=== PATIENT | female | born 1955 | race African-American/Black ===

== ENCOUNTER 2020-11-28 06:22 | Outpatient (REF) | payer BC, SELFPAY ==
[2020-11-28 11:58] LABS: SARS COV2 IgG Negative (Negative)
== END 2020-11-28 06:23 | disposition home or self-care (01) ==
LOC: HO.HMGCLDS 06:22
PROVIDERS: PCP Internal Medicine; Visit Provider Internal Medicine
DX: Z00.00 Encounter for general adult medical examination without abnormal findings (principal); Z20.822 Contact with and (suspected) exposure to COVID-19
CPT/HCPCS: 36415; 86769

== ENCOUNTER 2021-03-23 00:05 | Emergency (ER) | payer BC, SELFPAY ==
--- NOTE | ~2021-03-23 | XR_ITS ---
EXAMINATION: XR FOOT, RIGHT CLINICAL INFORMATION: Hard bump on dorsal fifth tarsal COMPARISON: None TECHNIQUE: AP, lateral, and oblique views of the right foot. FINDINGS: Osseous alignment is anatomic. Joint spaces appear maintained. No acute fracture is seen. No significant focal soft tissue abnormality identified. XR/XR foot RT min 3V IMPRESSION: No acute findings identified.
[2021-03-23 00:55] VITALS: BP 139/80; PULSE 82; RESP 14; TEMP 37.5; O2SAT 95; BMI 37.1
--- NOTE | 2021-03-23 03:11 | PC.NURSE ---
THIS RN GREETED PATIENT IN HALLWAY WHO WAS VERY UPSET RN BEING IN HALLWAY SPACE (18 MESA) FOR ROOM ASSIGNMENT. THIS RN WHO WAS ALSO CHARGE EXPLAINED TO THE PATIENT THAT THE ROOMS WERE ASSIGNED BASED ON WHO NEEDED A ADMINISTRATION MANAGER FIRST. THIS PT DID NOT REQUIRE A ADMINISTRATION MANAGER. PT THEN ASKED FOR A BLANKET STATED I HAVE CHILLS, I HAD A TEMP OF 102.7 AT HOME PTS TEMP HERE WAS 99.5 SO THIS RN EXPLAINED TO PT ONE NON HEATED BLANKET COULD BE GIVEN FOR COMFORT BUT MULTIPLE BLANKETS WHICH PT WAS REQUESTING WAS CONTRAINDICATED TO PTS MEDICAL COMPLAINTS. 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
--- NOTE | 2021-03-23 03:48 | ED_ITS ---
HPI - General Adult General Chief complaint: General Medical Stated complaint: fever, left swollen ankle, sever headache Time Seen by Provider: 03/23/21 03:47 Source: patient Mode of arrival: ambulatory History of Present Illness HPI narrative: 65-year-old female who presents with concerns regarding a bump on the right dorsal aspect of her foot that is atraumatic and patient noted at the other night and states that she feels like her foot is numb. In addition, patient complaints a headache that comes up along the back of her neck into the base of her skull and endorses that she has abstained from caffeine and denies any speech/hearing/motor/sensory dysfunction. Patient denies any fever, chills, nausea, vomiting, diarrhea but states she has had some very mild left inguinal/left lower quadrant discomfort that is not been associated with any urinary pain/burning/frequency. Related Data Allergies Allergy/AdvReac Type Severity Reaction Status Date / Time diphenhydramine Allergy Unknown ANXIETY Verified 09/25/20 08:37 [From BENADRYL] metronidazole [From FLAGYL] Allergy Unknown ALTERED Verified 09/25/20 08:37 MENTAL, FAINT, NAUSEA, DIZZY penicillin V Allergy Unknown Nausea Verified 09/25/20 08:37 Penicillins [PENICILLINS] Allergy Unknown NAUSEA Verified 09/25/20 08:37 Sulfa (Sulfonamide Allergy Unknown unknown Verified 09/25/20 08:37 Antibiotics) sulfamethoxazole Allergy Unknown HIVES Verified 09/25/20 08:37 [From BACTRIM] trimethoprim [From BACTRIM] Allergy Unknown HIVES Verified 09/25/20 08:37 Review of Systems Review of Systems: Pertinent positives and negatives as stated in HPI 10 point review of systems is otherwise negative. [facility] Past Medical History Medical History (Updated 03/23/21 @ 05:59 by Chantel Persaud MD) Annual physical exam Anxiety Surgical History (Updated 09/26/20 @ 07:23 by Afua Gramajo CMA) H/O colonoscopy History of colposcopy No pertinent past surgical history Family History Family History (Updated 09/25/20 @ 08:38 by LEANDRA Srinivasan, MANAGER OF PRODUCT) Father No problems noted. Mother No problems noted. Social History Social History Advance Directives: No Advance Directives Information Provided: No Patient : No Physical Exam Vital Signs: Vital Signs: Last Vital Signs Temp 99.5 F 03/23/21 00:55 Pulse 88 03/23/21 05:56 Resp 18 03/23/21 05:56 BP 131/82 03/23/21 05:56 Pulse Ox 97 03/23/21 05:56 Body Mass Index 37.1 VITAL SIGNS: Reviewed. GENERAL: Well developed, well nourished, in no acute distress. HEAD: Normocephalic/atraumatic EYES: PERRLA, EOMI OROPHARYNX: no oral lesions noted, posterior pharynx clear NECK: Supple, no adenopathy LUNGS: Normal breath sounds. No adventitious sounds or accessory muscle use. SpO2<95> CARDIOVASCULAR: Regular rate and rhythm without noted murmurs, no JVD or lower extremity edema. ABDOMEN: Soft, non-tender, non-distended with bowel sounds. RIGHT FOOT: Small hard area noted on the dorsal aspect of the 5th tarsal, otherwise palpable/symmetric DP/PT, capillary refill less than 3 seconds NEUROLOGIC: Alert and oriented x 4. Strength and sensation to light touch were grossly intact x 4. Course Course Course Narrative: This is a 65-year-old female with history and clinical presentation most consistent with tension-like headache and unknown firm mass noted at the right foot dorsum without evidence of cellulitis or infection. Review of all investigations negative for acute findings, however patient unable to provide urine sample. On re-evaluation patient states that she has had complete resolution of her symptoms and all results were discussed with her bedside. She was discharged in stable condition. Medical Decision Making Lab Data Result diagrams: 03/23/21 04:08 03/23/21 04:08 Labs: Lab Results 03/23/21 03/23/21 Range/Units 04:08 04:08 WBC 7.2 (4.8-10.8) X10*3/uL RBC 4.19 L (4.20-5.50) X10*6/uL Hgb 13.3 (12.0-16.0) g/dl Hct 40.5 (37-47) % MCV 96.7 (80-98) fL MCH 31.7 (27.0-33.0) pg MCHC 32.8 (31.0-35.0) g/dl RDW 12.6 (11.0-16.0) % Plt Count 184 (160-400) X10*3/uL MPV 10.1 (9.4-12.3) fL Immature Gran % (Auto) 0.1 (0.0-0.4) % Neut % (Auto) 45.8 (45-73) % Lymph % (Auto) 44.0 H (20-40) % Stephens % (Auto) 9.3 (2-11) % Eos % (Auto) 0.4 (0-4) % Baso % (Auto) 0.4 (0-2) % Lymph # (Auto) 3.2 (1.2-4.9) X10*3/uL Stephens # (Auto) 0.7 (0.1-1.2) X10*3/uL Eos # (Auto) 0.0 (0.0-0.4) X10*3/uL Baso # (Auto) 0.0 (0.0-0.2) X10*3/uL Abs Immat Gran (auto) 0.01 (0.00-0.03) X10*3/uL Absolute Neuts (auto) 3.3 (2.0-8.3) X10*3/uL Absolute Nucleated RBC 0.000 (0.0-0.012) X10*3/uL Nucleated RBC % (auto) 0.0 (0.0-0.2) /100WBC Sodium 140 (135-145) mmol/L Potassium 3.7 (3.3-5.1) mmol/L Chloride 107 (96-108) mmol/L Carbon Dioxide 26 (22-29) mmol/L Anion Gap 11 L (12-20) BUN 11 (9-16) mg/dL Creatinine 0.90 (0.5-1.4) mg/dL Estim Creat Clear Calc 77.0 Estimated GFR > 60 Random Glucose 97 (60-115) mg/dL Calcium 9.0 (8.4-10.2) mg/dL Total Bilirubin 0.7 (0.0-1.0) mg/dL AST 24 (5-31) U/L ALT 17 (0-31) U/L Alkaline Phosphatase 73 (39-117) U/L Total Protein 7.7 (6.5-8.0) g/dL Albumin 4.0 (3.5-5.0) g/dL Discharge Plan Discharge Clinical Impression: Headache Patient Disposition: Home, Self-Care Instructions: Tension Headache (ED) Additional Instructions: Return to the ER for any acute worsening of symptoms. Referrals: Darlene Tobar MD [Primary Care Provider] - 2 days
[2021-03-23 04:12] LABS: MANUAL DIFF FLAG NO
[2021-03-23 04:14] LABS: Basophils Percent Auto 0.4 % (0-2); Eosinophils Percent Auto 0.4 % (0-4); Hematocrit 40.5 % (37-47); Hemoglobin 13.3 g/dl (12.0-16.0); Imm Gran Abs Auto 0.01 X10*3/uL (0.00-0.03); Imm Gran Pct Auto 0.1 % (0.0-0.4); Lymphocytes Absolute Auto 3.2 X10*3/uL (1.2-4.9); Mean Corpuscular HGB Conc 32.8 g/dl (31.0-35.0); Mean Corpuscular Hemoglobin 31.7 pg (27.0-33.0); Mean Corpuscular Volume 96.7 fL (80-98); Mean Platelet Volume 10.1 fL (9.4-12.3); Monocytes Absolute Auto 0.7 X10*3/uL (0.1-1.2); Monocytes Percent Auto 9.3 % (2-11); Neutrophils Absolute Auto 3.3 X10*3/uL (2.0-8.3); Neutrophils Percent Auto 45.8 % (45-73); Platelet Count 184 X10*3/uL (160-400); Red Blood Count 4.19 X10*6/uL (4.20-5.50); Red Cell Distribution Width 12.6 % (11.0-16.0); White Blood Count 7.2 X10*3/uL (4.8-10.8)
[2021-03-23] MEDS: Acetaminophen 325 MG TABLET 975 MG PO (04:22)
[2021-03-23] MEDS: Ibuprofen 400 MG TABLET PO (04:22)
[2021-03-23 04:41] LABS: Alanine Aminotransferase 17 U/L (0-31); Alkaline Phosphatase 73 U/L (39-117); Anion Gap 11 (12-20); Aspartate Amino Transferase 24 U/L (5-31); Bilirubin Total 0.7 mg/dL (0.0-1.0); Blood Urea Nitrogen 11 mg/dL (9-16); Carbon Dioxide 26 mmol/L (22-29); Chloride 107 mmol/L (96-108); Estimated Glomerular Filt Rate > 60; Glucose Random 97 mg/dL (60-115); Potassium 3.7 mmol/L (3.3-5.1); Sodium 140 mmol/L (135-145); Total Protein 7.7 g/dL (6.5-8.0)
--- NOTE | 2021-03-23 05:06 | PC.NURSE ---
Pt presented to the nurses' station and asked if she needed to be charcoaled because she took 325mg tylenol around 2200 last night and is concerned she has taken too much medication.
[2021-03-23 05:56] VITALS: BP 131/82; PULSE 88; RESP 18; O2SAT 97
== END 2021-03-23 06:46 | disposition home or self-care (01) ==
PROVIDERS: Emergency Provider Student in an Organized Health Care Education/Training Program; PCP Internal Medicine
DX: G44.209 Tension-type headache, unspecified, not intractable (principal); M79.671 Pain in right foot; M54.2 Cervicalgia
CPT/HCPCS: 36415; 73630; 80053; 85025; 99284

== ENCOUNTER 2021-04-02 06:44 | Outpatient (REF) | payer BC, SELFPAY ==
[2021-04-02 12:04] LABS: SARS COV2 IgG Negative (Negative)
== END 2021-04-02 06:45 | disposition home or self-care (01) ==
LOC: HO.HMGCLDS 06:44
PROVIDERS: PCP Internal Medicine; Visit Provider Internal Medicine
DX: Z20.822 Contact with and (suspected) exposure to COVID-19 (principal)
CPT/HCPCS: 36415; 86769

== ENCOUNTER 2021-05-01 07:43 | Outpatient (REF) | payer BC, SELFPAY ==
[2021-05-01 11:30] LABS: Glucose Urine UA NEG (NEG); Leukocyte Esterase Urine NEG (NEG); Nitrite Urine NEG (NEG); PH 6.5 (5.0-8.0); Specific Gravity - Urine <= 1.005 (1.005-1.025); Urine Blood NEG (NEG); Urine Ketones NEG (NEG); Urine Protein NEG (NEG-TRACE)
[2021-05-01 11:42] LABS: Appearance Urine CLEAR; Color Urine STRAW
== END 2021-05-01 07:44 | disposition home or self-care (01) ==
LOC: HO.HMGCLDS 07:43
PROVIDERS: PCP Internal Medicine; Visit Provider Internal Medicine
DX: R30.0 Dysuria (principal)
CPT/HCPCS: 81003

== ENCOUNTER 2021-10-03 07:00 | Outpatient (REF) | payer MEDICARE, SELFPAY ==
[2021-10-30 14:39] LABS: SARS COV2 IgG Negative (Negative)
== END 2021-10-03 07:01 | disposition home or self-care (01) ==
LOC: HO.HMGCLDS 07:00
PROVIDERS: PCP Internal Medicine; Visit Provider Internal Medicine
DX: Z20.822 Contact with and (suspected) exposure to COVID-19 (principal)
CPT/HCPCS: 36415; 86769

== ENCOUNTER 2021-12-12 06:42 | Outpatient (REF) | payer MEDICARE, SELFPAY ==
[2021-12-16 04:06] LABS: SARS COV2 IgG Positive (Negative)
== END 2021-12-12 06:43 | disposition home or self-care (01) ==
LOC: HO.HMGCLDS 06:42
PROVIDERS: Visit Provider Internal Medicine
DX: Z20.822 Contact with and (suspected) exposure to COVID-19 (principal)
CPT/HCPCS: 36415; 86769

== ENCOUNTER 2021-12-17 08:21 | Outpatient (REF) | payer MEDICARE, SELFPAY ==
[2021-12-17 09:09] LABS: COVID-19 Test Negative (Negative); IDNOW Serial# 16C4AD1C
== END 2021-12-17 08:22 | disposition home or self-care (01) ==
LOC: HO.LAB 08:21
PROVIDERS: Visit Provider Internal Medicine
DX: Z20.822 Contact with and (suspected) exposure to COVID-19 (principal)
CPT/HCPCS: 87635; C9803

== ENCOUNTER 2022-01-31 08:14 | Outpatient (REF) | payer MEDICARE, SELFPAY ==
[2022-01-31 08:44] LABS: COVID-19 Test Negative (Negative); IDNOW Serial# 16C4AD1C
== END 2022-01-31 08:15 | disposition home or self-care (01) ==
LOC: HO.LAB 08:14
PROVIDERS: Visit Provider Internal Medicine
DX: Z20.822 Contact with and (suspected) exposure to COVID-19 (principal)
CPT/HCPCS: 87635; C9803

== ENCOUNTER 2022-02-04 07:16 | Outpatient (REF) | payer MEDICARE, SELFPAY ==
[2022-02-07 08:30] LABS: SARS COV2 IgG Positive (Negative)
== END 2022-02-04 07:17 | disposition home or self-care (01) ==
LOC: HO.HMGCLDS 07:16
PROVIDERS: Visit Provider Internal Medicine
DX: Z20.822 Contact with and (suspected) exposure to COVID-19 (principal)
CPT/HCPCS: 36415; 86769

== ENCOUNTER 2022-03-01 10:34 | Outpatient (REF) | payer MEDICARE, SELFPAY ==
[2022-03-01 12:00] LABS: Vitamin D 25-OH Total 33.2 ng/mL (>30)
[2022-03-03 08:11] LABS: Folate 9.5 ng/mL (> or = 4.0); Vitamin B12 256 pg/mL (200-900)
== END 2022-03-01 10:35 | disposition home or self-care (01) ==
LOC: HO.HMGCLDS 10:34
PROVIDERS: Visit Provider Internal Medicine
DX: Z00.00 Encounter for general adult medical examination without abnormal findings (principal); E55.9 Vitamin D deficiency, unspecified
CPT/HCPCS: 36415; 82306; 82607; 82746

== ENCOUNTER 2022-07-09 07:15 | Outpatient (REF) | payer MEDICARE, SELFPAY ==
[2022-07-12 01:56] LABS: SARS-COV-2 IgG Spike, Semi-Qnt >150.00 index (<1.00)
== END 2022-07-09 07:16 | disposition home or self-care (01) ==
LOC: HO.HMGCLDS 07:15
PROVIDERS: PCP Internal Medicine; Visit Provider Internal Medicine
DX: Z20.822 Contact with and (suspected) exposure to COVID-19 (principal)
CPT/HCPCS: 36415; 86769

== ENCOUNTER 2022-11-01 16:06 | Outpatient (REF) | payer MEDICARE, SELFPAY ==
[2022-11-01 16:25] LABS: Appearance Urine Clear; Color Urine Yellow; Glucose Urine UA Negative (Negative); Leukocyte Esterase Urine Negative (Negative); Nitrite Urine Negative (Negative); Specific Gravity - Urine <= 1.005 (1.005-1.025); Urine Blood Negative (Negative); Urine Ketones Negative (Negative); Urine Protein Negative (Neg-Trace)
== END 2022-11-01 16:07 | disposition home or self-care (01) ==
LOC: HO.LNP 16:06
PROVIDERS: Visit Provider Physician Assistant Medical
DX: R30.0 Dysuria (principal)
CPT/HCPCS: 81003

== ENCOUNTER 2022-11-20 11:59 | Outpatient (REF) | payer MEDICARE, SELFPAY ==
[2022-11-21 09:16] LABS: BV Int Neg Control Negative (Negative); BV Int Pos Control Positive (Positive)
== END 2022-11-20 12:00 | disposition home or self-care (01) ==
LOC: HO.LNP 11:59
PROVIDERS: Visit Provider Internal Medicine
DX: R30.0 Dysuria (principal); N76.0 Acute vaginitis
CPT/HCPCS: 87086; 87480; 87510; 87660

== ENCOUNTER 2023-10-29 07:53 | Outpatient (AMB) | payer MEDICARE, SELFPAY ==
--- NOTE | 2023-10-29 08:06 | MHC.PC.OV ---
Vital Signs 10/29/23 08:08 Height 5 ft 6 in Weight 200 lb BMI 32.3 BP 128/70 Blood Pressure Location Lt brachial Position Sitting Pulse 68 Pulse Source Pulse Oximeter Pulse Oximetry (%) 98 Oxygen Delivery Method Room Air Intake Visit Reasons: Annual PE Allergies diphenhydramine [From BENADRYL] Allergy (Unknown, Verified 10/29/23 08:08) ANXIETY metronidazole [From FLAGYL] Allergy (Unknown, Verified 10/29/23 08:08) ALTERED MENTAL, FAINT, NAUSEA, DIZZY penicillin V Allergy (Unknown, Verified 10/29/23 08:08) Nausea Penicillins [PENICILLINS] Allergy (Unknown, Verified 10/29/23 08:08) NAUSEA Sulfa (Sulfonamide Antibiotics) Allergy (Unknown, Verified 10/29/23 08:08) unknown sulfamethoxazole [From BACTRIM] Allergy (Unknown, Verified 10/29/23 08:08) HIVES trimethoprim [From BACTRIM] Allergy (Unknown, Verified 10/29/23 08:08) HIVES Medication List - Last Reconciled 10/29/23 by Darlene Tobar MD clindamycin phosphate 2% 1 appful vaginal BEDTIME 7 days estradiol 0.01%(0.1mg/gram) 2 grams vaginal DAILY latanoprost 0.005% 1 drp ophthalmic (eye) BEDTIME levalbuterol tartrate 45 mcg/actuation inhalation Tobacco use date assessed: 10/29/23 Fall risk assessment: No Falls in past year Last assessed Fall Risk: 10/29/23 Dental Screening Dental Screen Date: 10/29/23 Did you have a dental visit in the last 12 months?: Yes Did you have a dental problem in the last 6 months where you did not have access to dental care?: No Was dental information given to patient?: Patient has dentist HPI Annual PE HPI Details Pt presents for PE. 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 [facility] Medical History (Updated 10/29/23 @ 15:27 by Darlene Tobar MD) Vitamin D deficiency Hyperglycemia Microscopic hematuria Chronic cough Acute bronchitis Dysuria Annual physical exam Anxiety Surgical History (Updated 10/29/23 @ 08:40 by Darlene Tobar MD) History of colposcopy H/O colonoscopy No pertinent past surgical history Family History Father No problems noted. Mother No problems noted. Social History Housing: House Patient Tobacco Use Status: Never used Tobacco e-Cigarette/Vaping Use: Never Used Current occupational status: retired Cognitive needs: No Hearing needs: No Vision needs: Yes Questionnaire PHQ-9 Over the last 2 weeks, how often have you been bothered by any of the following problems? 1. Little interest or pleasure in doing things: not at all 2. Feeling down, depressed, or hopeless: not at all 3. Trouble falling or staying asleep, or sleeping too much: not at all 4. Feeling tired or having little energy: not at all 5. Poor appetite or overeating: not at all 6. Feeling bad about yourself - or that you are a failure or have let yourself or your family down: not at all 7. Trouble concentrating on things, such as reading the newspaper or watching television: not at all 8. Moving or speaking so slowly that other people could have noticed. Or the opposite - being so fidgety or restless that you have been moving around a lot more than usual: not at all 9. Thoughts that you would be better off or of hurting yourself in some way: not at all Total score: 0 Depression Screening Interpretation: Negative Depression Screening Done: Yes Source: Developed by Drs. Pankaj Chinchilla, Ingrid Harper, Lupillo Mabry and colleagues, with an educational reshma from [employer]. Thrive Questionnaire Date Thrive assessed: 10/29/23 I am a: Patient What is your living situation today?: I have a steady place to live Within the past 12 months, did the food you bought not last and you didn't have the money to get more?: Never true Within the past 12 months, did you worry whether your food would run out before you got money to buy more?: Never true Do you have trouble paying for medicines?: No Do you have trouble getting transportation to medical appointments?: No Do you have trouble paying your heating and electricity bill?: No Do you have trouble taking care of your child, family member or friend?: No Do you have trouble with day-to-day activities such as bathing, preparing meals, shopping, managing finances, etc.?: No Are you currently unemployed and looking for a job?: No Are you interested in more education?: No Please select the resources that you would like help with: None Currently or been in a relationship where the following occur: no concerns reported AUDIT C Alcohol Use Questionnaire (AUDIT-C) 1. How often do you have a drink containing alcohol?: Never 3. How often do you have six or more drinks on one occasion?: Never Total Score: 0 BECKY-7 AMB Questionnaire BECKY-7 Date BECKY - 7 assessed: 10/29/23 Feeling nervous, anxious, or on edge: 0 = Not at all Not being able to stop or control worryin = Not at all Worrying too much about different things: 0 = Not at all Trouble relaxin = Not at all Being so restless that it is hard to sit still: 0 = Not at all Becoming easily annoyed or irritable: 1 = Several days Feeling afraid as if something awful might happen: 0 = Not at all Total BECKY-7 score (0-4 normal; 5-9 mild; 10-14 moderate; 15-21 severe): 1 Source: Developed by Drs. Pankaj Chinchilla, Ingrid Harper, Lupillo Mabry and colleagues, with an educational reshma from [employer]. Review of Systems Const All systems reviewed & are unremarkable except as noted in HPI and below Reports no additional complaints Eyes Reports no additional complaints Card Reports no additional complaints Resp Reports no additional complaints GI Reports no additional complaints Physical exam (Primary Care) Vital Signs: Last Vital Signs Pulse 68 10/29/23 08:08 BP 128/70 10/29/23 08:08 Pulse Ox 98 10/29/23 08:08 Oxygen Delivery Method Room Air 10/29/23 08:08 BMI result Body Mass Index 32.3 Tobacco/Smoking Status: Tobacco use Status Tobacco use date assessed 10/29/23 10/29/23 08:11 Patient Tobacco Use Status Never used Tobacco 10/29/23 08:11 e-Cigarette/Vaping Use Never Used 10/29/23 08:11 PHQ-9: PHQ-9 Score PHQ-9: Total score 0 10/29/23 08:27 Depression Screening Interpretation: Negative Thrive Assessment: Date of Thrive Assessment Date Thrive assessed 10/29/23 10/29/23 08:13 Currently or been in a relationship where the following occur: no concerns reported Const General: no acute distress HENMT Head: Yes normal to inspection Ears: hearing grossly normal bilaterally General nose exam: Normal external nose present Face and sinus: Yes normal facial exam Mouth: Normal oral and palatal mucosa present Throat: Yes posterior oropharynx normal Eyes General: appearance normal, both eyes and all related structures Neck Neck: Yes no lymphadenopathy and Yes supple Resp Effort & Inspection: normal respiratory effort Auscultation: clear to auscultation bilaterally Cardio Rhythm: regular rhythm Heart sounds: S1 normal heart sound present and S2 normal heart sound present GI Inspection: Yes normal to inspection Palpation (GI): Soft to palpation Percussion: Yes normal to percussion Auscultation: normal bowel sounds Assessment and Plan Assessment & Plan (1) Vitamin D deficiency: Code(s): E55.9 - Vitamin D deficiency, unspecified Plan: Check vitamin-D level (2) Hyperglycemia: Code(s): R73.9 - Hyperglycemia, unspecified Plan: ADA diet increase exercise weight loss discussed with the patient. she will return for fasting blood work including A1C (3) Hyperlipidemia: Code(s): E78.5 - Hyperlipidemia, unspecified Plan: LOW-CHOLESTEROL DIET INCREASE EXERCISE WEIGHT LOSS DISCUSSED WITH THE PATIENT (4) Mitral regurgitation: Comment: mild MR on Echo 06/09 [facility] [place], repeat in 2 yrs Code(s): I34.0 - Nonrheumatic mitral (valve) insufficiency Plan: Patient will need repeat echocardiogram in May (5) Annual physical exam: Code(s): Z00.00 - Encounter for general adult medical examination without abnormal findings Plan: Well-balanced diet regular physical activity weight loss discussed with the patient. She is up-to-date with the Pap smear, colonoscopy and mammogram (6) Asthma-COPD overlap syndrome: Comment: f/u with [facility] [place] on Flovent, improved PFT 04/10 Code(s): J44.89 - Other specified chronic obstructive pulmonary disease Plan: Continue Flovent Orders: Orders Comprehensive [place]. Panel Fast Today E55.9 - Vitamin D deficiency, unspecified, I34.0 - Nonrheumatic mitral (valve) insufficiency, R73.9 - Hyperglycemia, unspecified Protein Electrophoresis, Serum Today E55.9 - Vitamin D deficiency, unspecified, I34.0 - Nonrheumatic mitral (valve) insufficiency, R73.9 - Hyperglycemia, unspecified Hemoglobin A1c Today R73.9 - Hyperglycemia, unspecified Vitamin D 25-OH Total Today E55.9 - Vitamin D deficiency, unspecified, I34.0 - Nonrheumatic mitral (valve) insufficiency, R73.9 - Hyperglycemia, unspecified Complete Blood Count Auto Diff Today E55.9 - Vitamin D deficiency, unspecified, I34.0 - Nonrheumatic mitral (valve) insufficiency, R73.9 - Hyperglycemia, unspecified Lipid Panel Today E55.9 - Vitamin D deficiency, unspecified, I34.0 - Nonrheumatic mitral (valve) insufficiency, R73.9 - Hyperglycemia, unspecified Referrals [facility] Specialist Nutrition Referral E55.9 - Vitamin D deficiency, unspecified, E78.5 - Hyperlipidemia, unspecified, R73.9 - Hyperglycemia, unspecified Medications: New fluticasone propionate 110 mcg/actuation (Flovent HFA) 1 puff inhalation BID 12 grams 0RF Coding Level of Care Code Est Pt Prev Care >65y(07344) Diagnoses Vitamin D deficiency E55.9 Hyperglycemia R73.9 Hyperlipidemia E78.5 Mitral regurgitation I34.0 Annual physical exam Z00.00 Asthma-COPD overlap syndrome J44.89
[2023-10-29 08:08] VITALS: BP 128/70; PULSE 68; O2SAT 98; BMI 32.3
== END 2023-10-29 09:37 | disposition home or self-care (01) ==
PROVIDERS: PCP Internal Medicine; Visit Provider Internal Medicine
DX: E55.9 Vitamin D deficiency, unspecified (principal); R73.9 Hyperglycemia, unspecified; E78.5 Hyperlipidemia, unspecified; I34.0 Nonrheumatic mitral (valve) insufficiency; Z00.00 Encounter for general adult medical examination without abnormal findings; J44.89 Other specified chronic obstructive pulmonary disease
CPT/HCPCS: 99397

== ENCOUNTER 2024-05-28 09:10 | Outpatient (AMB) | payer MEDICARE, SELFPAY ==
[2024-05-28 09:12] VITALS: BP 140/78; PULSE 66; O2SAT 97; BMI 32.3
--- NOTE | 2024-05-28 09:12 | MHC.OFFWIV ---
Intake Vital Signs 05/28/24 09:12 Height 5 ft 6 in Weight 200 lb BMI 32.3 BP 140/78 H Blood Pressure Location Lt brachial Position Sitting Pulse 66 Pulse Source Pulse Oximeter Pulse Oximetry (%) 97 Oxygen Delivery Method Room Air Intake Visit Reasons: EP RT hand/wrist injury Intake Note: pt is here for right hand and wrist injury Patient Tobacco Use Status: Never used Tobacco Allergies diphenhydramine [From BENADRYL] Allergy (Unknown, Verified 05/28/24 09:12) ANXIETY metronidazole [From FLAGYL] Allergy (Unknown, Verified 05/28/24 09:12) ALTERED MENTAL, FAINT, NAUSEA, DIZZY penicillin V Allergy (Unknown, Verified 05/28/24 09:12) Nausea Penicillins [PENICILLINS] Allergy (Unknown, Verified 05/28/24 09:12) NAUSEA Sulfa (Sulfonamide Antibiotics) Allergy (Unknown, Verified 05/28/24 09:12) unknown sulfamethoxazole [From BACTRIM] Allergy (Unknown, Verified 05/28/24 09:12) HIVES trimethoprim [From BACTRIM] Allergy (Unknown, Verified 05/28/24 09:12) HIVES Do you need a note to return to daycare/school/sports/work: No HPI EP RT hand/wrist injury HPI Details Patient is a 68-year-old female comes to the walk-in clinic complaining of right hand and wrist pain after repetitive use while gardening. She reports that symptoms occurred soon after, and now has a severe pain especially to the base of the right thumb into the thumb side of the wrist, particularly with any movement or trying to use the hand or wrist. She denies acute trauma such as fall, or sudden obvious pain. She denies fever or chills, other joint involvement, weakness numbness or tingling to the extremity. [facility] Medical History Vitamin D deficiency Hyperglycemia Microscopic hematuria Chronic cough Acute bronchitis Dysuria Annual physical exam Anxiety Surgical History History of colposcopy H/O colonoscopy No pertinent past surgical history Family History Father No problems noted. Mother No problems noted. Social History Housing: House Patient Tobacco Use Status: Never used Tobacco e-Cigarette/Vaping Use: Never Used Current occupational status: retired Cognitive needs: No Hearing needs: No Vision needs: Yes Review of Systems Const All systems reviewed & are unremarkable except as noted in HPI and below Physical Exam Vital Signs: Last Vital Signs Pulse 66 05/28/24 09:12 BP 140/78 H 05/28/24 09:12 Pulse Ox 97 05/28/24 09:12 Oxygen Delivery Method Room Air 05/28/24 09:12 BMI result Body Mass Index 32.3 Extrem Other: Patient has tenderness at the base of 1st right CMC joint, with decreased range of motion with both intrinsics and flexion and extension at the joint. She has decreased ability for opposition to the other fingers due to pain also. There is no erythema edema or warmth noted. No bony deformity. She has a positive Celestino's test, and positive tenderness to palpation at the radial aspect of the wrist. No scaphoid tenderness. 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 I think this is possible she has de Quervain tenosynovitis, although it might just be a flare-up of the osteoarthritis at the base of the thumb, which is apparent on plain film x-ray. There was no acute trauma noted on my wet read. She had a positive Celestino's test however, as well as grind to the 1st CMC joint. I placed her in a thumb spica splint which alleviated her symptoms. I also wrote her for a course of ibuprofen, which she will take with caution due to her age. We discussed elevating the hand, icing, and resting until symptoms improve. She can wear the splint as much as able for the next week or so, and then should wean out of the splint. If she has persistent symptoms, she should follow up with PCP or ortho to consider further imaging to rule out occult scaphoid fracture, however as acute trauma did not occur, this is unlikely. Orders: Orders XR wrist RT min 3V 05/28/24 S69.91XA - Unspecified injury of right wrist, hand and finger(s), initial encounter Medications: New ibuprofen 600 mg PO Q8H PRN 40 tabs 0RF pain Coding Level of Care Code Est Pt Level 4 (13715) Diagnoses Sprain of metacarpophalangeal (MCP) joint of right thumb, initial encounter S63.641A Encounter type: initial encounter Sprain of finger site: metacarpophalangeal joint
== END 2024-05-28 10:28 | disposition home or self-care (01) ==
PROVIDERS: PCP Internal Medicine; Visit Provider Physician Assistant Medical
DX: S63.641A Sprain of metacarpophalangeal joint of right thumb, initial encounter (principal)
CPT/HCPCS: 99051; 99214

== ENCOUNTER 2024-05-28 09:37 | Outpatient (REF) | payer MEDICARE, SELFPAY ==
--- NOTE | ~2024-05-28 | XR_ITS ---
EXAMINATION: XR WRIST, RIGHT CLINICAL INFORMATION: Injury COMPARISON: None available. TECHNIQUE: Four views of the right wrist. FINDINGS: No acute visible fracture or dislocation. Mild degenerative arthropathy of the first carpometacarpal joint. Joint space alignment otherwise maintained. Soft tissues are unremarkable. XR/XR wrist RT min 3V IMPRESSION: 1. No acute visible fracture or dislocation. 2. Mild degenerative arthropathy of the first carpometacarpal joint. 3. If high clinical concern for scaphoid fracture consider further evaluation with cross-sectional imaging.
== END 2024-05-28 09:38 | disposition home or self-care (01) ==
LOC: HO.HMGCX 09:37
PROVIDERS: PCP Internal Medicine; Visit Provider Physician Assistant Medical
DX: S69.91XA Unspecified injury of right wrist, hand and finger(s), initial encounter (principal)
CPT/HCPCS: 73110

== ENCOUNTER 2025-07-19 06:20 | Emergency (ER) | payer MEDICARE, SELFPAY ==
--- OUTSIDE RECORDS SUMMARY | 2025-07-14 13:00 | XMS_ITS | Encounter Summary ---
Author Organization [facility] Address [address] [place] [address] Phone Care Team Providers Care Manager Money Name Role Phone Poncho Thompson MD Primary Care Provider Encounter Details Date Type Department Care Team ([facility] st Contact Info) Description 07/14/2025 1:00 PM EDT Nurse Only [facility] Pulmonary, Allergy and Critical Care Medicine [address] [place] [address] Baldomero Swanson MD [address] [place] [address] 2nd [place] [address] [email or web address] Allergic rhinitis, unspecified seasonality, unspecified trigger (Primary Dx) Social History Tobacco Use Types Packs/Day Years Used Date Smoking Tobacco: Former Cigarettes 0.5 20 0 10/19/1980 - 2000 Smokeless Tobacco: Never Alcohol Use Standard Drinks/Week Comments No 0 (1 standard drink = 0.6 oz pur e alcohol) Education Answer Date Recorded Are you interested in more education? Not on tita e 02/16/2023 Are you concerned about learning? Not on file 02/16/2023 No 02/16/2023 No 02/16/2023 Digital Access Answer Date Recorded No 03/11/2023 No 03/11/2023 Reliable internet access at home? Not on file 03/11/2023 Device with a working camera? Not on file Comments No Sex and Gender Information Value Date Recorded Sex Assigned at Female 12/20/2020 10:04 AM EST Legal Sex Female 5:25 PM EST Gender Identity Female 12/20/2020 10:04 AM EST Sexual Orientation Straight 12/20/2020 10 :04 AM EST documented as of this encounter Progress Notes * Jeanine Murillo LPN - 07/14/2025 1:00 PM EDT Patient new to practice. 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 Dosing: Build-up phase. Week 25 Patient reports never taking an antihistamine prior to allergy injections. No new or worsening allergy symptoms. No changes in medications. Skin clean, dry, and intact. Sites cleansed with alcohol prep. Office-supplied serums subcutaneously administered as follows: Vial A - Dust Mite Mix, 1:1 concentration, 0.15 ml JACQUELINE Vial B - Trees/Grass/Weeds, 1:1 concentration, 0.15 ml RLA Vial C - Cat/Dog, 1:1 concentration, 0.15 ml GRETTA Vials 03/29/2026 No immediate reaction to injections. Benadryl cream applied to both sites. Pt agreed to waiting in the lobby for 15 min post injection. documented in this encounter Plan of Treatment Upcoming Encounters Date Type Department Care Team ([facility] st Contact Info) Description 07/21/2025 1:00 PM EDT Nurse Only [facility] Pulmonary, Allergy and Critical Care Medicine [address] [place] [address] Emmanuel Calixto MD [address] [place] [address] 07/28/2025 1:30 PM EDT Nurse Only [facility] Pulmonary, Allergy and Critical Care Medicine [address] [place] [address] Emmanuel Calixto MD [address] [place] [address] 08/04/2025 1:00 PM EDT Nurse Only [facility] Pul[facility], Allergy and Critical Care Medicine 10 [place] [address] Emmanuel Calixto MD [address] [place] [address] [email or web address] 08/18/2025 1:00 PM EDT Nurse Only [facility] Pulmonary, Allergy and Critical Care Medicine 10 [place], [place] [phone] Emmanuel Calixto MD [address] [place] [address] [email or web address] 09/01/2025 1:00 PM EST Nurse Only [facility] Pul[facility], Allergy and Critical Care Medicine [address] [place] [address] Emmanuel Calixto MD [address] [place] [address] [email or web address] 10/04/2025 9:30 AM EST Office Visit [facility] Neuromuscular Service [address]th [place] [address] Edgar Bowers MD, PhD [address] [place] [address] [email or web address] 10/24/2025 8:00 AM EST Office Visit [facility] [place] [address] [place] [address] Edgar Kaur MD [address] [place] [address] [email or web address] 01/11/2026 9:30 AM EDT Office Visit [facility] Primary [facility] Associates [address] [facility], [address] [place], [place] [phone] Poncho Thompson MD [address] [place] [address], [address] [address] [email or web address] documented as of this encounter Visit Diagnoses Diagnosis Allergic rhinitis, unspecified seasonality, unspecified trigger- Primary documented in this encounter Additional Health Concerns Assessment Noted Time PHQ-2 Depression Total Score: 0 05/04/20 24 11:49 AM EDT documented as of this encounter Care Teams Manager Money Relationship Specialty Start Date End Date Poncho Thompson MD [address] [place] [address], [facility] [address] [place] [address] [email or web address] PCP - General Internal Medicine 02/10/24 documented as of this encounter Additional Source Comments The information contained in this document represents components of the legal health record. It is not the complete legal health record.[facility]
--- NOTE | ~2025-07-19 | XR_ITS ---
CLINICAL HISTORY: cough sob --- Additional Notes or Special Instructions: bloodwork @ [address] [place] [address] Chest radiograph AP view Comparison: None Findings: Cardiomediastinal silhouette normal. No consolidations. No pleural effusion. No pneumothorax. No acute fracture. Soft tissue is unremarkable. Impression: No acute cardiopulmonary finding. This document has been electronically signed by: Mansi Sunshine MD on 07/19/2025 08:17:56
[2025-07-19 06:22] VITALS: BP 150/70; PULSE 100; RESP 18; TEMP 37.8; O2SAT 96; BMI 32.3
--- OUTSIDE RECORDS SUMMARY | 2025-07-19 06:56 | XMS_ITS | Encounter Summary ---
Author Organization [facility] Address [address] [place] [address] Phone Care Team Providers Care Offbearer Sewer Pipe Name Role Phone Darlene Tobar MD Primary Care Provider [phone] Poncho Thompson MD Primary Care Provider Encounter Details Date Type Department Care Team (Late Contact Info) Description 03/31/2022 Transcribe Orders [facility] [address] [place] [address] Unknown, Unknown, Social History Tobacco Use Types Packs/Day Years Used Date Smoking Tobacco: Former Cigarettes 1 10 0 05/14/1985 - 05/14/1995 Smokeless Tobacco: Never Alcohol Use Standard Drinks/Week Comments No 0 (1 standard drink = 0.6 oz pur e alcohol) Comments No Sex and Gender Information Value Date Recorded Sex Assigned at Female 12/20/2020 10:04 AM EST Legal Sex Female 5:25 PM EST Gender Identity Female 12/20/2020 10:04 AM EST Sexual Orientation Straight 12/20/2020 10 :04 AM EST documented as of this encounter Plan of Treatment Upcoming Encounters Date Type Department Care Team (Late Contact Info) Description 07/21/2025 1:00 PM EDT Nurse Only [facility] Pulmonary, Allergy and Critical Care Medicine 10 [place], [place] [phone] Emmanuel Calixto MD [address] [phone] [email or web address] 07/28/2025 1:30 PM EDT Nurse Only [facility] Pulmonary, Allergy and Critical Care Medicine [address] [place] [address] Emmanuel Calixto MD [address] [place] [address] 08/04/2025 1:00 PM EDT Nurse Only [facility] Pul[facility], Allergy and Critical Care Medicine [address] [place] [address] Emmanuel Calixto MD [address] [place] [address] 08/18/2025 1:00 PM EDT Nurse Only [facility], Allergy and Critical Care Medicine [address] [place] [address] Emmanuel Calixto MD [address] [place] [address] 09/01/2025 1:00 PM EST Nurse Only [facility], Allergy and Critical [facility] Medicine [address] [place] [address] Emmanuel Calixto MD [address] [place] [address] 10/04/2025 9:30 AM EST Office Visit [facility] Neuromuscular Service [address] [facility], 8th [place] [address] Edgar Bowers MD, PhD [address] [address] 10/24/2025 8:00 AM EST Office Visit [facility] [place] [address] [place] [address] Edgar Kaur MD [address] [place] [address] [email or web address] 01/11/2026 9:30 AM EDT Office Visit [facility] Primary Care Associates [address] [facility], [address] [place] [address] Poncho Thompson MD [address] [facility], [address] [place] [address] [email or web address] documented as of this encounter Visit Diagnoses Not on filedocumented in this encounter Additional Health Concerns Assessment Noted Time PHQ-2 Depression Total Score: 0 04/27/20 20 10:35 AM EDT documented as of this encounter Care Teams Offbearer Sewer Pipe Relationship Specialty Start Date End Date Darlene Tobar MD [address] [facility] [place] [address] PCP - General Internal Medicine 01/01/22 02/09/24 Poncho Thompson MD [address] [facility], [address] [place] [address] [email or web address] PCP - General Internal Medicine 02/10/24 documented as of this encounter Additional Source Comments The information contained in this document represents components of the legal health record. It is not the complete legal health record.[facility]
--- OUTSIDE RECORDS SUMMARY | 2025-07-19 06:56 | XMS_ITS | Clinical Summary ---
Author Organization [facility] Address [address] [place] [address] Care Team Providers Care Applied Marine Physics Professor Name Role Phone Unavailable Primary Care Provider Unavailabl e Allergies Active Allergy Reactions Criticality Noted Date Comments Ibuprofen Nausea Only Low 01/17/2011 Latex Rash,Shortness Of Breath High 07/15/2011 Penicillins Nausea Only Low 01/17/2011 Sulfamethoxazole-Trimethopri m Hives High 01/17/2011 Medications Medication Sig Dispensed Refills Start Date End Date Status montelukast (SINGULAIR) 10 MG tablet 0 08/18/2022 Active pantoprazole (PROTONIX) 40 MG tablet Take 1 tablet (40 mg total) by mouth daily. 0 06/17/2022 Active Social History Tobacco Use Types Packs/Day Years Used Date Smoking Tobacco: Never Assessed Sex and Gender Information Value Date Recorded Sex Assigned at Not on file Gender Identity Not on file Sexual Orientation Not on file Job Start Date Occupation Industry Not on file Not on file Not on file Last Filed Vital Signs Vital Sign Reading Time Taken Comments Blood Pressure - - Pulse - - Temperature - - Respiratory Rate - - Oxygen Saturation - - Inhaled Oxygen Concentration - - Weight 90.3 kg (199 lb) 11/06/2022 3:56 PM EST Height 167.6 cm (5' 6 ) 11/06/2022 3:56 PM EST Body Mass Index 32.12 11/06/2022 3:56 PM EST Plan of Treatment Health Maintenance Due Date Last Done Comments Hepatitis C Screening 1956 Depression Screening 1968 Preventative Health Evaluation 1974 Colon Cancer Screening (Colonoscopy) 2001 Breast Cancer Screening (Mammogram) 2006 Shingrix-Zoster Vaccine (1 o f 2) 2006 Fall Risk Assessment 2021 Osteoporosis Screening (DEXA Scan) 2021 Pneumococcal Vaccine (1 of 1 - PCV) 2021 BMI Counseling 11/06/2023 11/06/2022 COVID-19 Vaccine (3 - 2024-2 6 season) 2025 06/05/2021, 05/15/2021 Influenza Vaccine (#1) 2025 2022 DTap / Tdap / Td (2 - Td or Tdap) 03/18/2027 03/18/2017 RSV Adult > 60+ Yrs or (1 - 1-dose 75+ series) 2031 Hepatitis B Vaccines Aged Out No long er eligible based on patient's age to complete this topic RSV Ped < 20 months Aged Out No longe r eligible based on patient's age to complete this topic
--- OUTSIDE RECORDS SUMMARY | 2025-07-19 06:56 | XMS_ITS | Encounter Summary ---
Author Organization [facility] Address [address] [place] [address] Phone Care Team Providers Care Cosmetology Professor Name Role Phone Paula Ritchie MD Primary Care Provider [phone] Darlene Tobar MD Primary Care Provider [phone] Jojo Christensen MD Primary Care Provider [phone] Darlene Tobar MD Primary Care Provider [phone] Darlene Tobar MD Primary Care Provider [phone] Poncho Thompson MD Primary Care Provider Encounter Details Date Type Department Care Team (Late st Contact Info) Description 09/12/[address] [facility] OBGYN Gynecology Resident [address] [place] [address] Emani Leggett MA [email or web address] Social History Tobacco Use Types Packs/Day Years Used Date Smoking Tobacco: Former Cigarettes 1 10 0 05/14/1985 - 05/14/1995 Alcohol Use Standard Drinks/Week Comments No 0 [...] Encounters Date Type Department Care Team (Late st Contact Info) Description 07/21/2025 1:00 PM EDT Nurse Only [facility] Pulmonary, Allergy and Critical Care Medicine [address] [place] [address] Emmanuel Calixto MD [address] [place] [address] [email or web address] 07/28/2025 1:30 PM EDT Nurse Only [facility] Pul[facility], Allergy and Critical Care Medicine [address] [place] [address] Emmanuel Calixto MD [address] [place] [address] [email or web address] 08/04/2025 1:00 PM EDT Nurse Only [facility] Pul[facility], Allergy and Critical [facility] Medicine [address] [place] [address] Emmanuel Calixto MD [address] [place] [address] 08/18/2025 1:00 PM EDT Nurse Only [facility], Allergy and Critical Care Medicine [address] [place] [address] Emmanuel Calixto MD [address] [place] [address] [email or web address] 09/01/2025 1:00 PM EST Nurse Only [facility] Allergy [facility] Critical [facility] Medicine [address] [place] [address] Emmanuel Calixto MD [address] [place] [address] [email or web address] 10/04/2025 9:30 AM EST Office Visit [facility] Neuromuscular Service [address] [facility], 8th [place] [address] Edgar Bowers MD, PhD [address] [address] [email or web address] 10/24/2025 8:00 AM EST Office Visit [facility] [place] [address] [place] [address] Edgar Kaur MD [address] [place] [address] [email or web address] 01/11/2026 9:30 AM EDT Office Visit [facility] Primary Care Associates [address] [facility], [address] [place] [address] Poncho Thompson MD [address] [facility], [address] [place] [address] [email or web address] documented as of this encounter Visit Diagnoses Not on filedocumented in this encounter Additional Health Concerns Assessment Noted Time PHQ-2 Depression Total Score: 0 09/19/20 16 9:07 AM EST documented as of this encounter Care Teams Cosmetology Professor Relationship Specialty Start Date End Date Paula Ritchie MD [address] [place] [address] PCP - General 06/13/16 09/26/20 Darlene Tobar MD [address] [place] [address] [place] [address] PCP - General Internal Medicine 09/27/20 12/15/20 Jojo Christensen MD [address] [facility], [address] [place] [address] [email or web address] PCP - General Internal Medicine 12/16/2012/19 Darlene Tobar MD [facility] [place] [address] PCP - General Internal Medicine 12/20/20 12/31/21 Darlene Tobar MD [facility] [place] [address] PCP - General Internal Medicine 01/01/22 02/09/24 Poncho Thompson MD [address] [place] [address], [place] [address] [email or web address] PCP - General Internal Medicine 02/10/24 documented as of this encounter Additional Source Comments The information contained in this document represents components of the legal health record. It is not the complete legal health record.[facility]
--- OUTSIDE RECORDS SUMMARY | 2025-07-19 06:56 | XMS_ITS | Encounter Summary ---
Author Organization [facility] Address [address] [place] [phone] Care Team Providers Care Greenhouse Manager Name Role Phone Obtain, Unable To Primary Care Provider Unavaila ble Encounter Details Date Type Department Care Team (Late st Contact Info) Description 07/01/2018 Scanned Document Sleep Medicine Program at [address] [place] [address] Ayanna Pantoja MD [address] [place] [phone] Social History Tobacco Use Types Packs/Day Years Used Date Smoking Tobacco: Never Assessed Comments Unknown Sex and Gender Information Value Date Recorded Sex Assigned at Not on file Legal Sex Female 7:49 AM EST Gender Identity Female 01/08/2023 9:06 AM EDT Sexual Orientation Not on file documented as of this encounter Plan of Treatment Not on file documented as of this encounter Visit Diagnoses Not on filedocumented in this encounter Care Teams Greenhouse Manager Relationship Specialty Start Date End Date Obtain, Unable To PCP - General 08/02/18 documented as of this encounter
--- OUTSIDE RECORDS SUMMARY | 2025-07-19 06:56 | XMS_ITS | Encounter Summary ---
Author Organization [facility] Address [address] [place] [address] Phone Care Team Providers Care Db2 Developer Name Role Phone Darlene Tobar MD Primary Care Provider [phone] Poncho Thompson MD Primary Care Provider Encounter Details Date Type Department Care Team (Late st Contact Info) Description 05/13/2022 Transcribe Orders [facility] [address] [place] [address] Renée West MD [address] [place] [address] [email or web address] Social History Tobacco Use Types Packs/Day Years [...] [facility], All[facility] Critical [facility] [address] [place] [address] Emmanuel Calixto MD [address] [place] [address] 07/28/2025 1:30 PM EDT Nurse Only [facility] Pul[facility], Allergy and Critical Care Medicine [address] [place] [address] Emmanuel Calixto MD [address] [place] [address] 08/04/2025 1:00 PM EDT Nurse Only [facility], Allergy and Critical [facility] Medicine [address] [place] [address] Emmanuel Calixto MD [address] [place] [address] 08/18/2025 1:00 PM EDT Nurse Only [facility] All[facility] Critical [facility] Medicine [address] [place] [address] Emmanuel Calixto MD [address] [place] [address] 09/01/2025 1:00 PM EST Nurse Only [facility], Allergy and Critical [facility] Medicine [address] [place] [address] Emmanuel Calixto MD [address] [place] [address] 10/04/2025 9:30 AM EST Office [facility] Neuromuscular Service [address] [facility], 8th [place] [address] Edgar Bowers MD, PhD [address] [place] [address] [email or web address] 10/24/2025 8:00 AM EST Office Visit [facility] [place] [address] [place] [address] Edgar Kaur MD [address] [place] [address] [email or web address] 01/11/2026 9:30 AM EDT Office Visit [facility] Primary Care Associates [address] [facility], [address] [place] [address] Poncho Thompson MD [address] [facility], [address] [place] [address] [email or web address] documented as of this encounter Visit Diagnoses Not on filedocumented in this encounter Additional Health Concerns Assessment Noted Time PHQ-2 Depression Total Score: 0 04/27/20 20 10:35 AM EDT documented as of this encounter Care Teams Db2 Developer Relationship Specialty Start Date End Date Darlene Tobar MD [address] [facility] [place] [address] PCP - General Internal Medicine 01/01/22 02/09/24 Poncho Thompson MD [address] [facility], [address] [place] [address] [email or web address] PCP - General Internal Medicine 02/10/24 documented as of this encounter Additional Source Comments The information contained in this document represents components of the legal health record. It is not the complete legal health record.[facility]
--- OUTSIDE RECORDS SUMMARY | 2025-07-19 06:56 | XMS_ITS | Encounter Summary ---
Author Organization [facility] Address [address] [place] [address] Phone Care Team Providers Care Straight Knife Machine Cutter Name Role Phone Darlene Tobar MD Primary Care Provider [phone] Poncho Thompson MD Primary Care Provider Encounter Details Date Type Department Care Team (Late st Contact Info) Description 10/21/[address], Christopher [address] [facility], 2nd Floor, [address] [place] [address] Social History Tobacco Use Types Packs/Day Years [...] Upcoming Encounters Date Type Department Care Team ([facility] st Contact Info) Description 07/21/2025 1:00 PM EDT Nurse Only [facility] Pulmonary, Allergy and Critical Care Medicine 10 [place] [address] Emmanuel Calixto MD [address] [place] [address] [email or web address] 07/28/2025 1:30 PM EDT Nurse Only [facility] Pul[facility], Allergy and Critical Care Medicine [address] [place] [address] Emmanuel Calixto MD [address] [place] [address] [email or web address] 08/04/2025 1:00 PM EDT Nurse Only [facility] All[facility] Critical [facility] Medicine [address] [place] [address] Emmanuel Calixto MD [address] [place] [address] [email or web address] 08/18/2025 1:00 PM EDT Nurse Only [facility] Critical [facility] [address] [place] [address] Emmanuel Calixto MD [address] [place] [address] [email or web address] 09/01/2025 1:00 PM EST Nurse Only [facility] Allergy [facility] Critical [facility] Medicine [address] [place] [address] Emmanuel Calixto MD [address] [place] [address] [email or web address] 10/04/2025 9:30 AM EST Office Visit [facility] Neuromuscular Service [address]th [place] [address] Edgar Bowers MD, PhD [address] [facility] [place] [address] [email or web address] 10/24/2025 8:00 AM EST Office Visit [facility] [place] [address] [place] [address] Edgar Kaur MD [address] [place] [address] [email or web address] 01/11/2026 9:30 AM EDT Office Visit [facility] Primary Care Associates [address] [place] [address], [address] [address] Poncho Thompson MD [address] [place] [address], [address] [address] [email or web address] documented as of this encounter Visit Diagnoses Not on filedocumented in this encounter Additional Health Concerns Assessment Noted Time PHQ-2 Depression Total Score: 0 05/04/20 24 11:49 AM EDT documented as of this encounter Care Teams Straight Knife Machine Cutter Relationship Specialty Start Date End Date Darlene Tobar MD [address] [place] [address] PCP - General Internal Medicine 01/01/22 02/09/24 Poncho Thompson MD [address] [place] [address], [address] [place] [address] [email or web address] PCP - General Internal Medicine 02/10/24 documented as of this encounter Additional Source Comments The information contained in this document represents components of the legal health record. It is not the complete legal health record.[facility]
--- OUTSIDE RECORDS SUMMARY | 2025-07-19 06:56 | XMS_ITS | Encounter Summary ---
Author Organization [facility] Address [address] [place] [address] Phone Care Team Providers Care Community Health Planning Director Name Role Phone Paula Ritchie MD Primary Care Provider [phone] Darlene Tobar MD Primary Care Provider [phone] Jojo Christensen MD Primary Care Provider + [phone] Darlene Tobar MD Primary Care Provider Darlene Tobar MD Primary Care Provider [phone] Poncho Thompson MD Primary Care Provider Encounter Details Date Type Department Care Team (Late st Contact Info) Description 05/10/2020 Transcribe Orders [facility] [address] Ariel [email or web address] Social History Tobacco Use Types Packs/Day Years [...] Pulmonary, Allergy and Critical Care Medicine [address] [place] [address] mEmanuel Calixto MD [address] [place] [address] 07/28/2025 1:30 PM EDT Nurse Only [facility] Pulmonary, Allergy and Critical Care Medicine [address] [place] [address] Emmanuel Calixto MD [address] [place] [address] 08/04/2025 1:00 PM EDT Nurse Only [facility] Pulmonary, Allergy and Critical Care Medicine [address] [place] [address] Emmanuel Calixto MD [address] [place] [address] [email or web address] 08/18/2025 1:00 PM EDT Nurse Only [facility] Pulmonary, Allergy and Critical Care Medicine [address] [place] [address] Emmanuel Calixto MD [address] [place] [address] 09/01/2025 1:00 PM EST Nurse Only [facility] Pulmonary, Allergy and Critical Care Medicine [address] [place] [address] Emmanuel Calixto MD [address] [place] [address] 10/04/2025 9:30 AM EST Office Visit [facility] Neuromuscular Service [address] [facility], 8th [place] [address] Edgar Bowers MD, PhD [address] [address] [email or web address] 10/24/2025 8:00 AM EST Office Visit [facility] [place] [address] [place] [address] Edgar Kaur MD [address] [place] [address] [email or web address] 01/11/2026 9:30 AM EDT Office Visit [facility] [address] [place] [address], [facility] [address] [place] [address] Poncho Thompson MD [address] [place] [address], [address] [address] [email or web address] documented as of this encounter Results * Mammogram Outside (No Interpretation) (05/15/2020 9:52 AM EDT) Narrative [facility] - 05/15/2020 9:52 AM EDT This study is for PACS storage only and not for interpretation. us Paula Ritchie MD IMG OUTSIDE IMAGING W/OUT INTERPRETATION Final Result Performing Organization Address City/[facility]/ZIP Co de Phone Number [email or web address] * Mammogram Outside (No Interpretation) (05/15/2020 9:52 AM EDT) Narrative [facility] - 05/15/2020 9:52 AM EDT This study is for PACS storage only and not for interpretation. Paula Ritchie MD IMG OUTSIDE IMAGING W/OUT INTERPRETATION Final Result Performing Organization Address City/[facility]/ZIP Co de Phone Number [email or web address] * Mammogram Outside (No Interpretation) (05/15/2020 9:52 AM EDT) Narrative [facility] - 05/15/2020 9:52 AM EDT This study is for PACS storage only and not for interpretation. us Paula Ritchie MD IMG OUTSIDE IMAGING W/OUT INTERPRETATION Final Result Performing Organization Address City/[facility] Co de Phone Number [email or web address] * Mammogram Outside (No Interpretation) (05/15/2020 9:52 AM EDT) Narrative [facility] - 05/15/2020 9:52 AM EDT This study is for PACS storage only and not for interpretation. us Paula Ritchie MD IMG OUTSIDE IMAGING W/OUT INTERPRETATION Final Result Performing Organization Address [facility] Co de Phone Number [email or web address] documented in this encounter Visit Diagnoses Not on filedocumented in this encounter Additional Health Concerns Assessment Noted Time PHQ-2 Depression Total Score: 0 04/27/20 20 10:35 AM EDT documented as of this encounter Care Teams Community Health Planning Director Relationship Specialty Start Date End Date Paula Ritchie MD [address] [place] [address] PCP - General 06/13/16 09/26/20 Darlene Tobar MD [address] [place] [address] PCP - General Internal Medicine 09/27/20 12/15/20 Jojo Christensen MD [address] [facility], [address] [place] [address] [email or web address] PCP - General Internal Medicine 12/16/2012/19 Darlene Tobra MD [facility] [place] [address] PCP - General Internal Medicine 12/20/20 12/31/21 Darlene Tobar MD [facility] [place] [address] PCP - General Internal Medicine 01/01/22 02/09/24 Poncho Thompson MD [address] [place] [address], [address] [place] [address] [email or web address] PCP - General Internal Medicine 02/10/24 documented as of this encounter Additional Source Comments The information contained in this document represents components of the legal health record. It is not the complete legal health record.[facility]
--- OUTSIDE RECORDS SUMMARY | 2025-07-19 06:56 | XMS_ITS | Encounter Summary ---
Author Organization [facility] Address [address] [place] [id number] Care Team Providers Care Feedlot Manager Name Role Phone Obtain, Unable To Primary Care Provider Unavaila ble Reason for Referral * Consultation (Routine) - Closed Specialty Diagnoses / Procedures Referred By Contheri t Referred To Contact Neurology Diagnoses Polyneuropathy Darlene Tobar MD [address] [facility] [place] [address] Phone: tel: fax: Neuromuscular Medicine at [address] [address] Phone: tel: fax: Referral ID Status Reason Start Date Expiration Date V isits Requested Visits Authorized [id number] Closed Specialty Services Required 06/30/2022 06/30/2023 1 1 Encounter Details Date Type Department Care Team (Latest Contact Info) Description 06/30/2022 Transcribed Orders Neuromuscular Medicine at [address] [address] Darlene Tobar MD [address] [facility] [place] [address] Polyneuropathy (Primary Dx) Social History Tobacco Use Types Packs/Day Years Used Date Smoking Tobacco: Never Assessed Comments Unknown Sex and Gender Information Value Date Recorded Sex Assigned at Not on file Legal Sex Female 7:49 AM EST Gender Identity Female 01/08/2023 9:06 AM EDT Sexual Orientation Not on file documented as of this encounter Plan of Treatment Scheduled Referrals Name Type Priority Associated Diagnoses Order Schedule Ambulatory referral to Neurology Outpatient Referral Routine Polyneuropathy Ordered: 06/30/2022 documented as of this encounter Visit Diagnoses Diagnosis Polyneuropathy- Primary Unspecified hereditary and idiopathic peripheral neuropathy documented in this encounter Care Teams Feedlot Manager Relationship Specialty Start Date End Date Obtain, Unable To PCP - General 08/02/18 documented as of this encounter
--- OUTSIDE RECORDS SUMMARY | 2025-07-19 06:56 | XMS_ITS | Encounter Summary ---
Author Organization [facility] Address [address] [place] [address] Phone Care Team Providers Care Skilled Trades Teacher Name Role Phone Poncho Thompson MD Primary Care Provider Reason for Visit * Reason Comments Med Change Request Encounter Details Date Type Department Care Team (Late st Contact Info) Description 07/03/2025 Refill [facility] [address] [facility] 2nd [address], [address] [place] [address] Cem Mo MD [address] [facility] [address] [place] [address] [email or web address] Med Change Request Social History Tobacco Use Types Packs/Day Years [...] Upcoming Encounters Date Type Department Care Team ([facility] st Contact Info) Description 07/21/2025 1:00 PM EDT Nurse Only [facility] Pulmonary, Allergy and Critical Care Medicine [address] [place] [address] Emmanuel Calixto MD [address] [place] [address] [email or web address] 07/28/2025 1:30 PM EDT Nurse Only [facility] Pulmonary, Allergy and Critical Care Medicine [address] [place] [address] Emmanuel Calixto MD [address] [place] [address] [email or web address] 08/04/2025 1:00 PM EDT Nurse Only [facility], Allergy [facility] Critical [facility] [address] [place] [address] Emmanuel Calixto MD [address] [place] [address] [email or web address] 08/18/2025 1:00 PM EDT Nurse Only [facility], All[facility] Critical [facility] [address] [place] [address] Emmanuel Calixto MD [address] [place] [address] [email or web address] 09/01/2025 1:00 PM EST Nurse Only [facility], Allergy [facility] Critical [facility] Medicine [address] [place] [address] Emmanuel Calixto MD [address] [place] [address] [email or web address] 10/04/2025 9:30 AM EST Office Visit [facility] Service [address] 8[address] [place] [address] Edgar Bowers MD, PhD [address] [facility] [place] [address] [email or web address] 10/24/2025 8:00 AM EST Office Visit [facility] [address] [place] [address] Edgar Kaur MD [address] [place] [address] [email or web address] 01/11/2026 9:30 AM EDT Office Visit [facility] [address] [place] [address] Poncho Thompson MD [address] [place] [address] [email or web address] documented as of this encounter Visit Diagnoses Not on filedocumented in this encounter Additional Health Concerns Assessment Noted Time PHQ-2 Depression Total Score: 0 05/04/20 24 11:49 AM EDT documented as of this encounter Care Teams Skilled Trades Teacher Relationship Specialty Start Date End Date Poncho Thompson MD [address] [place] [address], [address] [address] [email or web address] PCP - General Internal Medicine 02/10/24 documented as of this encounter Additional Source Comments The information contained in this document represents components of the legal health record. It is not the complete legal health record.[facility]
--- OUTSIDE RECORDS SUMMARY | 2025-07-19 06:56 | XMS_ITS | Patient Health Record ---
Author Organization [facility] Address [address] [facility] [address] [place] [address] Care Team Providers Care Geriatric Social Worker Name Role Phone Darlene Tobar Primary Care Provider Unavailabl e Allergies Allergen (clinical drug ingredient) Drug/Non Drug Allergy documented on EMR Reaction Allergy Type Onset Date Status sulfamethoxazole / trimethoprim Bactrim Unknown Drug Allergy Active diphenhydramine Benadryl Unknown Drug Allergy A ctive metronidazole Flagyl Unknown Drug Allergy Act dell Substance with penicillin structure and antibacterial mechanism of action (substance) Penicillins Unknown Drug Allergy Active Reason For Referral No Information Medications Medication SIG (Take, Route, Fr equency, Duration) Notes Start Date End Date Status Ciclopirox 8 % 1 application Hand Wood Sander ally to toenails Once a day; Duration: 365 days A ctive Problems Problem Type SNOMED Code ICD Code Onset Dates Problem Status W/U Status Risk Notes Problem Localized, primary osteoarthritis of the ankle and/or foot (538038765) 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
--- OUTSIDE RECORDS SUMMARY | 2025-07-19 06:56 | XMS_ITS | Encounter Summary ---
Author Organization [facility] Address [address] [facility] [address] [place] [address] Phone Care Team Providers Care Prepress Manager Name Role Phone Darlene Tobar MD Primary Care Provider [phone] Poncho Thompson MD Primary Care Provider Encounter Details Date Type Department Care Team (Late Contact Info) Description 01/28/[address], Located Within [facility] [place] [address] [facility] [place], [place] [phone] Social History Tobacco Use Types Packs/Day Years [...] Pulmonary, Allergy and Critical Care Medicine 10 [place], [place] [phone] Emmanuel Calixto MD [address] [address] 07/28/2025 1:30 PM EDT Nurse Only [facility] Pulmonary, Allergy and Critical Care Medicine [address] [place] [address] Emmanuel Calixto MD [address] [place] [address] 08/04/2025 1:00 PM EDT Nurse Only [facility] Pulmonary, Allergy and Critical Care Medicine [address] [place] [address] Emmanuel Calixto MD [address] [place] [address] 08/18/2025 1:00 PM EDT Nurse Only [facility] Pulmonary, Allergy and Critical Care Medicine [address] [place] [address] Emmanuel Calixto MD [address] [place] [address] 09/01/2025 1:00 PM EST Nurse Only [facility] Pulmonary, Allergy and Critical Care Medicine [address] [place] [address] Emmanuel Calixto MD [address] [place] [address] 10/04/2025 9:30 AM EST Office Visit [facility] Neuromuscular Service [address] [facility], 8th [place] [address] Edgar Bowers MD, PhD [address] [place] [address] 10/24/2025 8:00 AM EST Office Visit [facility] [address] [place] [address] Edgar Kaur MD [address] [place] [address] [email or web address] 01/11/2026 9:30 AM EDT Office Visit [facility] Primary [facility] [address] [facility] [place] [address] Poncho Thompson MD [address] [place] [address] [email or web address] documented as of this encounter Visit Diagnoses Not on filedocumented in this encounter Additional Health Concerns Assessment Noted Time PHQ-2 Depression Total Score: 0 04/27/20 20 10:35 AM EDT documented as of this encounter Care Teams Prepress Manager Relationship Specialty Start Date End Date Darlene Tobar MD [address] [facility] [place] [address] PCP - General Internal Medicine 01/01/22 02/09/24 Poncho Thompson MD [address] [facility], [address] [place] [address] [email or web address] PCP - General Internal Medicine 02/10/24 documented as of this encounter Additional Source Comments The information contained in this document represents components of the legal health record. It is not the complete legal health record.[facility]
--- OUTSIDE RECORDS SUMMARY | 2025-07-19 06:56 | XMS_ITS | Encounter Summary ---
Author Organization [facility] Address [address] [place] [address] Phone Care Team Providers Care Oyster Grader Name Role Phone Darlene Tobar MD Primary Care Provider Poncho Thompson MD Primary Care Provider Encounter Details Date Type Department Care Team (Late st Contact Info) Description 07/29/2022 Ancillary Orders [facility] Bone Density, Oscar [address] [place] [address] Darlene Tobar MD [address] [place] [address] [place] [address] Asymptomatic menopausal state Social History Tobacco Use Types Packs/Day Years [...] Pulmonary, Allergy and Critical Care Medicine [address] [place], [place] [phone] Emmanuel Calixto MD [address] [place] [address] 07/28/2025 1:30 PM EDT Nurse Only [facility] Pulmonary, Allergy and Critical Care Medicine [address] [place] [address] Emmanuel Calixto MD [address] [place] [address] 08/04/2025 1:00 PM EDT Nurse Only [facility] Pulmonary, Allergy and Critical Care Medicine [address] [place] [address] Emmanuel Calixto MD [address] [place] [address] 08/18/2025 1:00 PM EDT Nurse Only [facility] Pulmonary, Allergy and Critical Care Medicine [address] [place] [address] Emmanuel Calixto MD [address] [place] [address] 09/01/2025 1:00 PM EST Nurse Only [facility] Pulmonary, Allergy and Critical Care Medicine [address] [place] [address] Emmanuel Calixto MD [address] [place] [address] 10/04/2025 9:30 AM EST Office Visit [facility] Neuromuscular Service [address] [facility], 8th [place] [address] Edgar Bowers MD, PhD [address] [address] 10/24/2025 8:00 AM EST Office Visit [facility] [place] [address] [place] [address] Edgar Kaur MD [address] [place] [address] [email or web address] 01/11/2026 9:30 AM EDT Office Visit [facility] [address] [place] [address] Poncho Thompson MD [address] [facility], [address] [place], [place] [id number] [email or web address] documented as of this encounter Results * BD DXA AXIAL (SPINE) WITH HIP (08/02/2022 8:56 AM EDT) Anatomical Region Laterality Modality Bone Density Bone Density 08/02/2022 8:50 AM EDT Impressions 08/04/2022 3:28 PM EDT Interpretation: Osteopenia. Narrative 08/04/2022 3:28 PM EDT Referred By: DARLENE TOBAR Scanner: [employer] with serial# of [id number] located at [address] [place] [address] Bone Density Scan (DXA) 08/02/22 Details of prior DXA scans are available by clicking View Image BMD T- Z- Skeletal Site gm/cm2 score score BMD Change Since Prior Scan ------ ----- ----- PA Spine (L1-L4) 1.005 -1.30 0.70 N/A Total Hip (Left) 0.960 -0.50 0.50 N/A Femoral Neck (Left) 0.776 -1.20 0.10 N/A ------ ----- ----- * Denotes significant change when >= 0.022 g/cm2 for the spine, 0.027 g/cm2 for the total hip, 0.029 g/cm2 for the femoral neck. Interpretation: Osteopenia. Technical Quality: Imaging of all sites was of adequate quality. FRAX: Based on FRAX(r) 3.6 ([place] Black female), this patient's likelihood of hip fracture is 0.2% and major osteoporotic fracture is 3.1% over the next 10 years. The patient reported no risks of fracture. Additional Information: -World Health Organization criteria classify adults based on lowest T-score at PA spine, hip or forearm: Normal (T-score >= -1.0), Osteopenia (T-score between -1 and -2.5), or Osteoporosis (T-score <= -2.5). T-scores are compared to peak bone density of a gender and ethnicity matched reference population. -For premenopausal women and men under the age of 50, Z-scores (comparison to age, gender, and ethnicity matched reference population) are used: Above expected range for age (Z-score >= 2.0), Within expected range of age (Z-score 1.9 to -1.9), or Below expected range for age (Z-score <= -2.0). -The National Osteoporosis Foundation recommends that treatment be considered in men aged more than 50 years and in postmenopausal women with ANY of the following: Prior hip or vertebral fractures; T-score of <= -2.5 at the PA spine or hip; or 10 year fracture probability by FRAX of >= 3% for the hip or >= 20% for major osteoporotic fracture. -The FRAX algorithm (https://www.robert.ac.uk/FRAX/tool.aspx) is designed to predict 10-year fracture risk in treatment-naive adults between the ages of 40 and 90. It is not intended to be used in those receiving pharmacologic osteoporosis treatment. -Including race/ethnicity in the generation of T- or Z-scores or in the FRAX calculation is complicated, with there being reasons for and against doing such. We and others are actively reviewing the best approach to ensure that we can give patients the best information on their risk of fracture. -Click on View Image to see subsequent pages with images and prior bone density results. Reviewed By: Saúl Tirado MD on 08/04/2022 15:28:02 Procedure Note Saúl Tirado MD - 08/04/2022 Referred By: DARLENE TOBAR Scanner: [employer] with serial# of [id number] located at [address] [place] [address] Bone Density Scan (DXA) 08/02/22 Details of prior DXA scans are available by clicking View Image BMD T- Z- Skeletal Site gm/cm2 score score BMD Change Since Prior Scan ------ ----- PA Spine (L1-L4) 1.005 -1.30 0.70 N/A Total Hip (Left) 0.960 -0.50 0.50 N/A Femoral Neck (Left) 0.776 -1.20 0.10 N/A ------ ----- * Denotes significant change when >= 0.022 g/cm2 for the spine, 0.027g/cm2 for the total hip, 0.029 g/cm2 for the femoral neck. Interpretation: Osteopenia. Technical Quality: Imaging of all sites was of adequate quality. FRAX: Based on FRAX(r) 3.6 ([place] Black female), this patient's likelihoodof hip fracture is 0.2% and major osteoporotic fracture is 3.1% over the next 10 years. The patient reported no risks of fracture. Additional Information: -World Health Organization criteria classify adults based on lowestT-score at PA spine, hip or forearm: Normal (T-score >= -1.0), Osteopenia (T-score between -1 and -2.5), or Osteoporosis (T-score <= -2.5). T-scores are compared to peak bone density of a gender and ethnicity matched reference population. -For premenopausal women and men under the age of 50, Z-scores (comparison to age, gender, and ethnicity matched reference population) are used:Above expected range for age (Z-score >= 2.0), Within expected range of age (Z-score 1.9 to -1.9), or Below expected range for age (Z-score <= -2.0). -The National Osteoporosis Foundation recommends that treatment be considered in men aged more than 50 years and in postmenopausal women with ANY of the following: Prior hip or vertebral fractures; T-score of <= -2.5 at the PA spine or hip; or 10 year fracture probability by FRAX of >= 3%for the hip or >= 20% for major osteoporotic fracture. -The FRAX algorithm (https://www.robert.ac.uk/FRAX/tool.aspx) isdesigned to predict 10-year fracture risk in treatment-naive adults between theages of 40 and 90. It is not intended to be used in those receivingpharmacologic osteoporosis treatment. -Including race/ethnicity in the generation of T- or Z-scores or in theFRAX calculation is complicated, with there being reasons for and against doing such. We and others are actively reviewing the best approach to ensurethat we can give patients the best information on their risk of fracture. -Click on View Image to see subsequent pages with images and prior bone density results. Reviewed By: Saúl Tirado MD on 08/04/2022 15:28:02 IMPRESSION: Interpretation: Osteopenia. us Darlene Tobar MD IMG BD BONE DENSITY DEXA Jenn l Result documented in this encounter Visit Diagnoses Diagnosis Asymptomatic menopausal state Asymptomatic menopausal state documented in this encounter Additional Health Concerns Assessment Noted Time PHQ-2 Depression Total Score: 0 04/27/20 20 10:35 AM EDT documented as of this encounter Care Teams Oyster Grader Relationship Specialty Start Date End Date Darlene Tobar MD [facility] [place] [address] PCP - General Internal Medicine 01/01/22 02/09/24 Poncho Thompson MD [address] [place] [address], [address] [place] [address] [email or web address] PCP - General Internal Medicine 02/10/24 documented as of this encounter Additional Source Comments The information contained in this document represents components of the legal health record. It is not the complete legal health record.[facility]
--- OUTSIDE RECORDS SUMMARY | 2025-07-19 06:56 | XMS_ITS | Encounter Summary ---
Author Organization [facility] Address [address] [place] [address] Phone Care Team Providers Care Court Collections Officer Name Role Phone Darlene Tobar MD Primary Care Provider [phone] Ponhco Thompson MD Primary Care Provider Encounter Details Date Type Department Care Team (Late st Contact Info) Description 06/18/2023 Telephone [facility] Comprehensive Ophthalmology [address] [address] Beatrice Tolbert MD [address] [place] [address] [email or web address] [email or web address] Social History Tobacco Use Types Packs/Day Years [...] Upcoming Encounters Date Type Department Care Team ([facility] st Contact Info) Description 07/21/2025 1:00 PM EDT Nurse Only [facility] Pulmonary, Allergy and Critical Care Medicine [address] [place] [address] Emmanuel Calixto MD [address] [place] [address] 07/28/2025 1:30 PM EDT Nurse Only [facility] Pulmonary, Allergy and Critical Care Medicine [address] [place] [address] Emmanuel Calixto MD [address] [place] [address] [email or web address] 08/04/2025 1:00 PM EDT Nurse Only [facility] Pulmonary, Allergy and Critical Care Medicine [address] [place] [address] Emmanuel Calixto MD [address] [place] [address] 08/18/2025 1:00 PM EDT Nurse Only [facility] Pulmonary, Allergy and Critical Care Medicine [address] [place] [address] Emmanuel Calixto MD [address] [place] [address] [email or web address] 09/01/2025 1:00 PM EST Nurse Only [facility] Pulmonary, Allergy and Critical Care Medicine [address] [place] [address] Emmanuel Calixto MD [address] [place] [address] [email or web address] 10/04/2025 9:30 AM EST Office Visit [facility] Neuromuscular Service [address] 8th [place] [address] Edgar Bowers MD, PhD 55 [facility] [place] [address] [email or web address] 10/24/2025 8:00 AM EST Office Visit [facility] [place] [address] [place] [address] Edgar Kaur MD [address] [place] [address] [email or web address] 01/11/2026 9:30 AM EDT Office Visit [facility] Primary Care Associates [address] [place] [address], [address] [address] Poncho Thompson MD [address] [place] [address], [address] [address] [email or web address] documented as of this encounter Visit Diagnoses Not on filedocumented in this encounter Additional Health Concerns Assessment Noted Time PHQ-2 Depression Total Score: 0 04/27/20 20 10:35 AM EDT documented as of this encounter Care Teams Court Collections Officer Relationship Specialty Start Date End Date Darlene Tobar MD [address] [facility] [place] [address] PCP - General Internal Medicine 01/01/22 02/09/24 Poncho Thompson MD [address] [place] [address], [address] [place] [address] [email or web address] PCP - General Internal Medicine 02/10/24 documented as of this encounter Additional Source Comments The information contained in this document represents components of the legal health record. It is not the complete legal health record.[facility]
--- OUTSIDE RECORDS SUMMARY | 2025-07-19 06:56 | XMS_ITS | Encounter Summary ---
Author Organization [facility] Address [address] [place] [address] Phone Care Team Providers Care Finger Lift Operator Name Role Phone Darlene Tobar MD Primary Care Provider [phone] Poncho Thompson MD Primary Care Provider Encounter Details Date Type Department Care Team (Late Contact Info) Description 01/28/2022 Procedure Pass [facility] [address] [place] [address] Social History Tobacco Use Types Packs/Day Years [...] Pulmonary, Allergy and Critical Care Medicine [address] [place] [address] Emmanuel Calixto MD [address] [facility] 2nd [place] [address] 07/28/2025 1:30 PM EDT Nurse Only [facility] Pulmonary, Allergy and Critical Care Medicine [address] [place] [address] Emmanuel Calixto MD [address] [place] [address] 08/04/2025 1:00 PM EDT Nurse Only [facility] Pulmonary, Allergy and Critical Care Medicine [address] [place] [address] Emmaunel Calixto MD [address] [place] [address] 08/18/2025 1:00 PM EDT Nurse Only [facility] Pulmonary, Allergy and Critical Care Medicine [address] [place] [address] Emmanuel Calixto MD [address] [place] [address] 09/01/2025 1:00 PM EST Nurse Only [facility] Pulmonary, Allergy and Critical Care Medicine [address] [place] [address] Emmanuel Calixto MD [address] [place] [address] 10/04/2025 9:30 AM EST Office Visit [facility] Neuromuscular Service [address] [facility], 8th [place] [address] Edgar Bowers MD, PhD [address] [address] [email or web address] 10/24/2025 8:00 AM EST Office Visit [facility] [place] [address] [place] [address] Edgar Kaur MD [address] [place] [address] [email or web address] 01/11/2026 9:30 AM EDT Office Visit [facility] Primary Care Associates [address] [facility], [address] [place] [address] Poncho Thompson MD [address] [place] [address] [email or web address] documented as of this encounter Visit Diagnoses Not on filedocumented in this encounter Additional Health Concerns Assessment Noted Time PHQ-2 Depression Total Score: 0 04/27/20 20 10:35 AM EDT documented as of this encounter Care Teams Finger Lift Operator Relationship Specialty Start Date End Date Darlene Tobar MD [address] [facility] [place] [address] PCP - General Internal Medicine 01/01/22 02/09/24 Poncho Thompson MD [address] [facility], [address] [place] [address] [email or web address] PCP - General Internal Medicine 02/10/24 documented as of this encounter Additional Source Comments The information contained in this document represents components of the legal health record. It is not the complete legal health record.[facility]
--- OUTSIDE RECORDS SUMMARY | 2025-07-19 06:56 | XMS_ITS | Encounter Summary ---
Author Organization [facility] Address [address] [place] [address] Phone Care Team Providers Care Women'S Studies Professor Name Role Phone Poncho Thompson MD Primary Care Provider Encounter Details Date Type Department Care Team (Late st Contact Info) Description 04/11/2024 Telephone [facility] [place] [place] Comprehensive Ophthalmology [address] [address] Beatrice Tolbert MD [address] [place] [address] Cali [email or web address] [email or web address] Social History Tobacco Use Types Packs/Day Years Used Date Smoking Tobacco: Former Cigarettes 1 20 1 981 - 2000 Smokeless Tobacco: Never Alcohol Use [...] Upcoming Encounters Date Type Department Care Team ([facility] st Contact Info) Description 07/21/2025 1:00 PM EDT Nurse Only [facility] Pulmonary, Allergy and Critical Care Medicine [address] [place] [address] Emmanuel Calixto MD [address] [place] [address] [email or web address] 07/28/2025 1:30 PM EDT Nurse Only [facility] Pulmonary, Allergy and Critical Care Medicine [address] [place] [address] Emmanuel Calixto MD [address] [place] [address] [email or web address] 08/04/2025 1:00 PM EDT Nurse Only [facility] Pulmonary, Allergy and Critical Care Medicine [address] [place] [address] Emmanuel Calixto MD [address] [place] [address] [email or web address] 08/18/2025 1:00 PM EDT Nurse Only [facility] Pulmonary, Allergy and Critical Care Medicine [address] [place] [address] Emmanuel Calixto MD [address] [place] [address] [email or web address] 09/01/2025 1:00 PM EST Nurse Only [facility] Pulmonary, Allergy and Critical Care Medicine [address] [place] [address] Emmanuel Calixto MD [address] [place] [address] 10/04/2025 9:30 AM EST Office Visit [facility] Neuromuscular Service [address] 8th [place] [address] Edgar Bowers MD, PhD 55 [facility] [place] [address] [email or web address] 10/24/2025 8:00 AM EST Office Visit [facility] [place] 800 [place] [address] Edgar Kaur MD [address] [place] [address] [email or web address] 01/11/2026 9:30 AM EDT Office Visit [facility] Primary Care Associates [address] [place] [address], [address] [address] Poncho Thompson MD [address] [place] [address] [email or web address] documented as of this encounter Visit Diagnoses Not on filedocumented in this encounter Additional Health Concerns Assessment Noted Time PHQ-2 Depression Total Score: 0 04/27/20 20 10:35 AM EDT documented as of this encounter Care Teams Women'S Studies Professor Relationship Specialty Start Date End Date Poncho Thompson MD [address] [place] [address], [address] [address] [email or web address] PCP - General Internal Medicine 02/10/24 documented as of this encounter Additional Source Comments The information contained in this document represents components of the legal health record. It is not the complete legal health record.[facility]
--- OUTSIDE RECORDS SUMMARY | 2025-07-19 06:56 | XMS_ITS | Encounter Summary ---
Author Organization [facility] Address [address] [place] [id number] Care Team Providers Care Radiator Repairer Name Role Phone Obtain, Unable To Primary Care Provider Unavaila ble Encounter Details Date Type Department Care Team (Late st Contact Info) Description 04/12/2022 Scanned Document Medical Dermatology at [address] [facility] [address] [facility] [address] [place] [address] External, Provider Social History Tobacco Use Types Packs/Day Years [...] on filedocumented in this encounter Care Teams Radiator Repairer Relationship Specialty Start Date End Date Obtain, Unable To PCP - General 08/02/18 documented as of this encounter
--- OUTSIDE RECORDS SUMMARY | 2025-07-19 06:57 | XMS_ITS | Encounter Summary ---
Author Organization [facility] Address [address] [place] [address] Phone Care Team Providers Care Sewer Pipe Sorter Name Role Phone Poncho Thompson MD Primary Care Provider Encounter Details Date Type Department Care Team (Late st Contact Info) Description 10/25/2024 Telephone [facility] Comprehensive Ophthalmology [address] [address] Beatrice Tolbert MD [address] [place] [address] Cali [email or web address] Social History Tobacco Use Types Packs/Day Years [...] Upcoming Encounters Date Type Department Care Team ([facility] st Contact Info) Description 07/21/2025 1:00 PM EDT Nurse Only [facility] Pulmonary, Allergy and Critical Care Medicine [address] [place] [address] Emmanuel Calixto MD [address] [place] [address] [email or web address] 07/28/2025 1:30 PM EDT Nurse Only [facility] Pulmonary, Allergy and Critical Care Medicine [address] [place] [address] Emmanuel Calixto MD [address] [place] [phone] [email or web address] 08/04/2025 1:00 PM EDT Nurse Only [facility] Pulmonary, Allergy and Critical Care Medicine [address] [place] [address] Emmanuel Calixto MD [address] [place] [phone] [email or web address] 08/18/2025 1:00 PM EDT Nurse Only [facility] Pulmonary, Allergy and Critical Care Medicine [address] [place] [address] Emmanuel Calixto MD [address] [place] [phone] [email or web address] 09/01/2025 1:00 PM EST Nurse Only [facility] Pulmonary, Allergy and Critical Care Medicine [address] [place] [address] Emmanuel Calixto MD [address] [place] [phone] [email or web address] 10/04/2025 9:30 AM EST Office Visit [facility] Neuromuscular Service [address] 8th [place] [address] Edgar Bowers MD, PhD 55 [facility] [place] [address] [email or web address] 10/24/2025 8:00 AM EST Office Visit [facility] [place] 800 [place] [address] Edgar Kaur MD [address] [place] [address] [email or web address] 01/11/2026 9:30 AM EDT Office Visit [facility] Primary Care Associates [address] [place] [address] Poncho Thompson MD [address] [place] [address] [email or web address] documented as of this encounter Visit Diagnoses Not on filedocumented in this encounter Additional Health Concerns Assessment Noted Time PHQ-2 Depression Total Score: 0 05/04/20 24 11:49 AM EDT documented as of this encounter Care Teams Sewer Pipe Sorter Relationship Specialty Start Date End Date Poncho Thompson MD [address] [place] [address] [email or web address] PCP - General Internal Medicine 02/10/24 documented as of this encounter Additional Source Comments The information contained in this document represents components of the legal health record. It is not the complete legal health record.[facility]
--- OUTSIDE RECORDS SUMMARY | 2025-07-19 06:57 | XMS_ITS | Encounter Summary ---
Author Organization [facility] Address [address] [place] [address] Phone Care Team Providers Care Energy Auditor Name Role Phone Poncho Thompson MD Primary Care Provider Encounter Details Date Type Department Care Team (Late st Contact Info) Description 10/31/2024 Telephone [facility] Comprehensive Ophthalmology [address] [address] Beatrice Tolbert MD [address] [place] [address] Cali [email or web address] Social History Tobacco Use Types Packs/Day Years [...] Upcoming Encounters Date Type Department Care Team ([facility] st Contact Info) Description 07/21/2025 1:00 PM EDT Nurse Only [facility] Pulmonary, Allergy and Critical Care Medicine [address] [place] [address] Emmanuel Calixto MD [address] [place] [address] 07/28/2025 1:30 PM EDT Nurse Only [facility] Pulmonary, Allergy and Critical Care Medicine [address] [place] [address] Emmanuel Calixto MD [address] [place] [address] 08/04/2025 1:00 PM EDT Nurse Only [facility]monary, Allergy and Critical [facility] Medicine [address] [place] [address] Emmanuel Calixto MD [address] [place] [address] 08/18/2025 1:00 PM EDT Nurse Only [facility] Pulmonary, Allergy [facility] Critical [facility] Medicine [address] [place] [address] Emmanuel Calixto MD [address] [place] [address] 09/01/2025 1:00 PM EST Nurse Only [facility]monary, Allergy and Critical [facility] Medicine [address] [place] [address] Emmanuel Calixto MD [address] [place] [address] [email or web address] 10/04/2025 9:30 AM EST Office Visit [facility] Service [address] 8[address] [place] [address] Edgar Bowers MD, PhD 55 [facility] [place] [address] [email or web address] 10/24/2025 8:00 AM EST Office Visit [facility] [place] [address] [place] [address] Edgar Kaur MD [address] [place] [address] [email or web address] 01/11/2026 9:30 AM EDT Office Visit [facility] [address] [place] [address] Poncho Thompsno MD [address] [place] [address] [email or web address] documented as of this encounter Visit Diagnoses Not on filedocumented in this encounter Additional Health Concerns Assessment Noted Time PHQ-2 Depression Total Score: 0 05/04/20 24 11:49 AM EDT documented as of this encounter Care Teams Energy Auditor Relationship Specialty Start Date End Date Poncho Thompson MD [address] [place] [address] [email or web address] PCP - General Internal Medicine 02/10/24 documented as of this encounter Additional Source Comments The information contained in this document represents components of the legal health record. It is not the complete legal health record.[facility]
--- OUTSIDE RECORDS SUMMARY | 2025-07-19 06:57 | XMS_ITS | Encounter Summary ---
Author Organization [facility] Address [address] [place] [address] Phone Care Team Providers Care Ssis Developer Name Role Phone Poncho Thompson MD Primary Care Provider Encounter Details Date Type Department Care Team (Late st Contact Info) Description 01/27/2025 Telephone [facility] [place] Ophthalmology [address] [address] Beatrice Tolbert MD [address] [place] [address] Cali [email or web address] [email or web address] [email or web address] Social History Tobacco Use Types Packs/Day [...] Upcoming Encounters Date Type Department Care Team ([facility] st Contact Info) Description 07/21/2025 1:00 PM EDT Nurse Only [facility] Pulmonary, Allergy and Critical Care Medicine [address] [place] [address] Emmanuel Calixto MD [address] [place] [address] [email or web address] 07/28/2025 1:30 PM EDT Nurse Only [facility] Pulmonary, Allergy and Critical Care Medicine [address] [place] [address] Emmanuel Calixto MD [address] [place] [address] [email or web address] 08/04/2025 1:00 PM EDT Nurse Only [facility]ergy [facility] [address] [place] [address] Emmanuel Calixto MD [address] [place] [address] [email or web address] 08/18/2025 1:00 PM EDT Nurse Only [facility], Allergy [facility] Critical [facility] [address] [place] [address] Emmanuel Calixto MD [address] [place] [address] [email or web address] 09/01/2025 1:00 PM EST Nurse Only [facility], Allergy and Critical [facility] Medicine [address] [place] [address] Emmanuel Calixto MD [address] [place] [address] [email or web address] 10/04/2025 9:30 AM EST Office Visit [facility] [address] 8[address] [place] [address] Edgar Bowers MD, PhD 55 [facility] [place] [address] [email or web address] 10/24/2025 8:00 AM EST Office Visit [facility] [place] [address] [place] [address] Edgar Kaur MD [address] [place] [address] [email or web address] 01/11/2026 9:30 AM EDT Office Visit [facility] [address] [place] [address] Poncho Thompson MD [address] [place] [address] [email or web address] documented as of this encounter Visit Diagnoses Not on filedocumented in this encounter Additional Health Concerns Assessment Noted Time PHQ-2 Depression Total Score: 0 05/04/20 24 11:49 AM EDT documented as of this encounter Care Teams Ssis Developer Relationship Specialty Start Date End Date Poncho Thompson MD [address] [place] [address] [email or web address] PCP - General Internal Medicine 02/10/24 documented as of this encounter Additional Source Comments The information contained in this document represents components of the legal health record. It is not the complete legal health record.[facility]
--- OUTSIDE RECORDS SUMMARY | 2025-07-19 06:57 | XMS_ITS | Encounter Summary ---
Author Organization [facility] Address [address] [place] [address] Phone Care Team Providers Care Escalation Engineer Name Role Phone Poncho Thompson MD Primary Care Provider Encounter Details Date Type Department Care Team (Late st Contact Info) Description 11/01/2024 Telephone [facility] Comprehensive Ophthalmology [address] [address] Beatrice Tolbert MD [address] [place] [address] Cali [email or web address] [email or web address] Social History Tobacco Use Types Packs/Day [...] Upcoming Encounters Date Type Department Care Team ([facility] st Contact Info) Description 07/21/2025 1:00 PM EDT Nurse Only [facility] Pulmonary, Allergy and Critical Care Medicine [address] [place] [address] Emmanuel Calixto MD [address] [place] [address] 07/28/2025 1:30 PM EDT Nurse Only [facility]monary, Allergy and Critical Care Medicine [address] [place] [address] Emmanuel Calixto MD [address] [place] [address] 08/04/2025 1:00 PM EDT Nurse Only [facility] Allergy [facility] Critical [facility] Medicine [address] [place] [address] Emmanuel Calixto MD [address] [place] [address] 08/18/2025 1:00 PM EDT Nurse Only [facility], Allergy [facility] Critical [facility] Medicine [address] [place] [address] Emmanuel Calixto MD [address] [place] [address] 09/01/2025 1:00 PM EST Nurse Only [facility]monary, Allergy [facility] Critical [facility] Medicine [address] [place] [address] Emmanuel Calixto MD [address] [place] [address] [email or web address] 10/04/2025 9:30 AM EST Office Visit [facility] Neuromuscular Service [address] [place] [address] Edgar Bowers MD, PhD 55 [facility] [place] [address] [email or web address] 10/24/2025 8:00 AM EST Office Visit [facility] [place] [address] [place] [address] Edgar Kaur MD [address] [place] [address] [email or web address] 01/11/2026 9:30 AM EDT Office Visit [facility] Primary [facility] Associates [address] [place] [address] Poncho Thompson MD [address] [place] [address] [email or web address] documented as of this encounter Visit Diagnoses Not on filedocumented in this encounter Additional Health Concerns Assessment Noted Time PHQ-2 Depression Total Score: 0 05/04/20 24 11:49 AM EDT documented as of this encounter Care Teams Escalation Engineer Relationship Specialty Start Date End Date Poncho Thompson MD [address] [place] [address] [email or web address] PCP - General Internal Medicine 02/10/24 documented as of this encounter Additional Source Comments The information contained in this document represents components of the legal health record. It is not the complete legal health record.[facility]
--- OUTSIDE RECORDS SUMMARY | 2025-07-19 06:57 | XMS_ITS ---
Author Name [facility] Organization Unknown History of Medication Use Medication Directions Dispensed Refills Start Date End Date Stat ketorolac (ACULAR) 0.5 % ophthalmic solution Administer 1 drop into the right eye in the morning and 1 drop before bedtime. Use in the procedure eye 2x a day for 5 days. 01/26/2025 active Travatan Z 0.004 % drops Administer 0.05 mL (1 drop total) into both eyes in the morning. 06/12/2022 04/07/2024 active fluticasone propionate (FLONASE) 50 mcg/actuation nasal spray Administer 1 spray into affected nostril(s) daily. 09/19/2016 04/07/2024 aborted ascorbic acid, vitamin C, (VITAMIN C) 1,000 mg tablet Take by mouth. ac tive fluticasone propionate (FLOVENT DISKUS) 50 mcg/actuation diskus inhaler Inhale 1 puff in the morning and 1 puff in the evening. Rinse mouth with water after use to reduce aftertaste and incidence of candidiasis. Do not swallow. Prime before first use and when inhaler has not been used for >5 days. Do not remove canister from the actuato. active Allergies Allergen Reaction Severity Comment Documented Date Source Statu s MOLD 05/12/2019 [facility] active PENICILLINS 08/03/2018 [facility] active LATEX RASH [facility] SULFAMETHOXAZOLE-TRIMETHOPRIM CT [facility] Encounters Encounter Type Encounter Reason Primary Diagnosis Location Date Ambulatory Primary open-angle glaucoma, right eye, Primary open-angle glaucoma, right eye, moderate stage [facility] 01/26/2025 Ambulatory Preglaucoma, unspecified, bilateral Preglaucoma, unspecified, bilateral [facility] 08/29/2024 Ambulatory Preglaucoma, unspecified, bilateral [facility]reg[facility]aucoma, unspecified, bilateral [facility] 04/07/2024 Ambulatory Preglaucoma, unspecified, bilateral Preglaucoma, unspecified, bilateral [facility] 10/08/2023 Ambulatory Other specified postprocedural states Other specified postprocedural states [facility] 05/08/2023 Ambulatory Preglaucoma, unspecified, bilateral [facility] 09/25/2022 Ambulatory Glaucoma Suspect [facility] 2021 Ambulatory 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 Darlene Tobar Primary Care 05/08/2023 3 [facility] DARLENE TOBAR Primary Care 07/22/20 22 [facility] DARLENE TOBAR Primary Care 11/14/19 22 07/22/2022
--- OUTSIDE RECORDS SUMMARY | 2025-07-19 06:57 | XMS_ITS | Clinical Summary ---
Author Organization [facility] Address [address] [place] [address] Care Team Providers Care Substation Electrician Name Role Phone Poncho Thompson MD Primary Care Provid er Immunizations Immunization Administration Dates Next Due Pfizer SARS-CoV-2 COVID-19, mRNA, LNP-S, preservative free 06/05/2021,05/15/2021 Social History Tobacco Use Types Packs/Day Years Used Date Smoking Tobacco: Never Assessed Comments No Sex and Gender Information Value Date Recorded Sex Assigned at Not on file Legal Sex Female 6:42 PM EDT Gender Identity Not on file Sexual Orientation Not on file Obstetrics History Last Filed Vital Signs Vital Sign Reading Time Taken Comments Blood Pressure - - Pulse - - Temperature - - Respiratory Rate - - Oxygen Saturation - - Inhaled Oxygen Concentration - - Weight 93 kg (205 lb) 03/18/2025 7:45 AM EDT Height 167.6 cm (5' 6 ) 03/18/2025 7:45 AM EDT Body Mass Index 33.09 03/18/2025 7:45 AM EDT Plan of Treatment Health Maintenance Due Date Last Done Comments Pneumococcal Vaccine: 50+ Years (1 of 2 - PCV) 1975 Zoster Vaccines (1 of 2) 2006 RSV Immunization Adult Patients (1 - Risk 60-74 years 1-dose series) 2016 Colorectal Cancer Screening: Colonoscopy 03/05/2021 Medicare Annual Wellness Visit 03/05/2021 Social Influencers of Health Screening 03/05/2021 Falls Risk Assessment 2021 Depression Screening 10/19/2024 COVID-19 Vaccine ( season) 2025 06/05/2021, 05/15/2021 Influenza Vaccine (#1) 2025 , 09/11/2023, 2022 Breast Cancer Screening 03/18/2027 03/18/20 25, 12/07/2023, 11/30/2022, Additional history exists DTaP,Tdap,and Td Vaccines (2 - Td or Tdap) 03/18/2027 03/18/2017 Cholesterol Screening (Lipid Panel) 07/05/2029 07/05/2024 Osteoporosis Screening (Bone Density Screening) 08/02/2032 08/02/2022 Hepatitis C Screening Completed 07/05/2024 HIB Vaccines Aged Out No longer eligi ble based on patient's age to complete this topic HPV Vaccines Aged Out No longer eligi ble based on patient's age to complete this topic Hepatitis A Vaccines Aged Out No long er eligible based on patient's age to complete this topic Hepatitis B Vaccines Aged Out No long er eligible based on patient's age to complete this topic IPV Vaccines Aged Out No longer eligi ble based on patient's age to complete this topic MMR Vaccines Aged Out No longer eligi ble based on patient's age to complete this topic Meningococcal ACWY Vaccine Aged Out N o longer eligible based on patient's age to complete this topic Meningococcal B Vaccine Aged Out No l onger eligible based on patient's age to complete this topic RSV Immunization Patients Under 20 months Aged Out No longer eligible based on patient's age to complete this topic Varicella Vaccines Aged Out No longer eligible based on patient's age to complete this topic Procedures Procedure Name Priority Date/Time Associated Diagnosis Comments MG MAMMO DIGITAL SCREENING W JOSE DE JESUS BILAT Routine 03/18/2025 7:51 AM EDT Encounter for screening mammogram for breast cancer from Last 3 Months or Most Recently Relevant to Health Maintenance Results * MG Mammo Digital Screening w Jose De Jesus bilat (03/18/2025 7:51 AM EDT) Anatomical Region Laterality Modality Breast Bilateral Mammography 03/20/2025 7:00 AM EDT Impressions 03/20/2025 7:05 AM EDT No mammographic evidence of malignancy. No suspicious interval change. A negative mammogram in the presence of a clinically suspicious palpable abnormality does not preclude the possibility of malignancy or alter the indications for biopsy. ASSESSMENT: BI-RADS 1: NEGATIVE RECOMMENDATION(S): 1: Routine screening mammogram BILATERAL in 1 year. [facility] [address], [address] -------- FINAL REPORT -------- Dictated By: Clovis De León Dictated Date: 03/20/2025 07:00 ET Assigned Physician: Clovis De León Reviewed and Electronically Signed By: Clovis De León Signed Date: 03/20/2025 07:05 ET Workstation ID: [id number] Transcribed By: Self Edit Transcribed Date: 03/20/2025 07:00 ET Narrative 03/20/2025 7:05 AM EDT EXAM: SCREENING MAMMOGRAPHY, BILATERAL HISTORY: SCREENING. Scar marker outer left breast for reportedly benign process. COMPARISON: 12/05/23, 11/29/22, 11/23/21, 10/06/20 TECHNIQUE: Synthesized CC and MLO projections of each breast. Tomosynthesis of each breast in the CC and MLO projections. ADDITIONAL IMAGING: None Computer-aided detection was employed with the [employer] AI 3-D. TISSUE DENSITY: There are scattered areas of fibroglandular density. (BI-RADS category B) FINDINGS: RIGHT BREAST: No suspicious mass. No suspicious calcification. No distortion. No additional suspicious right breast findings LEFT BREAST: No suspicious mass. No suspicious calcification. No distortion. No additional suspicious left breast findings Procedure Note Clovis De León MD - 03/20/2025 EXAM: SCREENING MAMMOGRAPHY, BILATERAL HISTORY: SCREENING. Scar marker outer left breast for reportedly benignprocess. COMPARISON: 12/05/23, 11/29/22, 11/23/21, 10/06/20 TECHNIQUE: Synthesized CC and MLO projections of each breast.Tomosynthesis of each breast in the CC and MLO projections. ADDITIONAL IMAGING: None Computer-aided detection was employed with the [employer] AI 3-D. TISSUE DENSITY: There are scattered areas of fibroglandular density.(BI-RADS category B) FINDINGS: RIGHT BREAST: No suspicious mass. No suspicious calcification. No distortion. Noadditional suspicious right breast findings LEFT BREAST: No suspicious mass. No suspicious calcification. No distortion. Noadditional suspicious left breast findings IMPRESSION: No mammographic evidence of malignancy. No suspicious interval change. A negative mammogram in the presence of a clinically suspicious palpableabnormality does not preclude the possibility of malignancy or alter theindications for biopsy. ASSESSMENT: BI-RADS 1: NEGATIVE RECOMMENDATION(S): 1: Routine screening mammogram BILATERAL in 1 year. [facility] location[facility] [address], [address] -------- FINAL REPORT -------- Dictated By: Clovis De León Dictated Date: 03/20/2025 07:00 ET Assigned Physician: Clovis De León Reviewed and Electronically Signed By: Clovis De León Signed Date: 03/20/2025 07:05 ET Workstation ID: [id number] Transcribed By: Self Edit Transcribed Date: 03/20/2025 07:00 ET us Self Referral Sppl IMG BI PROCEDURES Final Resul t from Last 3 Months or Most Recently Relevant to Health Maintenance Insurance [employer] MED[employer]ARE ADVANTAGE Care Teams Substation Electrician Relationship Specialty Start Date End Date Poncho Thompson MD [address] [place] [address], [address] [place] [address] PCP - General Internal Medicine 03/18/25
--- OUTSIDE RECORDS SUMMARY | 2025-07-19 06:57 | XMS_ITS | Encounter Summary ---
Author Organization [facility] Address [address] [place] [address] Phone Care Team Providers Care Analysis Specialist Name Role Phone Paula Ritchie MD Primary Care Provider [phone] Darlene Tobar MD Primary Care Provider [phone] Jojo Christensen MD Primary Care Provider [phone] Darlene Tobar MD Primary Care Provider Darlene Tobar MD Primary Care Provider [phone] Poncho Thompson MD Primary Care Provider Encounter Details Date Type Department Care Team (Late st Contact Info) Description 10/21/2016 Procedure Pass [facility] Imaging, [place] [address] [place] [address] Social History Tobacco Use Types Packs/Day Years [...] [facility], Allergy and Critical Care Medicine [address] [place] [address] Emmanuel Calixto MD [address] [place] [address] [email or web address] 07/28/2025 1:30 PM EDT Nurse Only [facility], Allergy and Critical Care Medicine [address] [place] [address] Emmanuel Calixto MD [address] [place] [address] 08/04/2025 1:00 PM EDT Nurse Only [facility], Allergy and Critical Care Medicine [address] [place] [address] Emmanuel Calixto MD [address] [place] [address] 08/18/2025 1:00 PM EDT Nurse Only [facility], Allergy and Critical Care Medicine [address] [place] [address] Emmanuel Calixto MD [address] [place] [address] 09/01/2025 1:00 PM EST Nurse Only [facility], Allergy [facility] Critical [facility] Medicine [address] [place] [address] Emmanuel Calixto MD [address] [place] [address] 10/04/2025 9:30 AM EST Office [place] [facility] [address] [facility] 8th [place] [address] dEgar Bowers MD, PhD [address] [place] [address] [email or web address] 10/24/2025 8:00 AM EST Office Visit [facility] [place] [address] [place] [address] Edgar Kaur MD [address] [place] [address] [email or web address] 01/11/2026 9:30 AM EDT Office Visit [facility] [address], [address] [place] [address] Poncho Thompson MD [address] [place] [address], [address] [address] [email or web address] documented as of this encounter Visit Diagnoses Not on filedocumented in this encounter Additional Health Concerns Assessment Noted Time PHQ-2 Depression Total Score: 0 09/19/20 16 9:07 AM EST documented as of this encounter Care Teams Analysis Specialist Relationship Specialty Start Date End Date Paula Ritchie MD [address] [place] [address] PCP - General 06/13/16 09/26/20 Darlene Tobar MD [address] [place] [address] [place] [address] PCP - General Internal Medicine 09/27/20 12/15/20 Jojo Christensen MD [address] [facility], [address] [place] [address] [email or web address] PCP - General Internal Medicine 12/16/2012/19 Darlene Tobar MD [address] [place] [address] [place] [address] PCP - General Internal Medicine 12/20/20 12/31/21 Darlene Tobar MD [facility] [place] [address] PCP - General Internal Medicine 01/01/22 02/09/24 Poncho Thompson MD [address] [place] [address], [place] [address] [email or web address] PCP - General Internal Medicine 02/10/24 documented as of this encounter Additional Source Comments The information contained in this document represents components of the legal health record. It is not the complete legal health record.[facility]
--- OUTSIDE RECORDS SUMMARY | 2025-07-19 06:57 | XMS_ITS | Encounter Summary ---
Author Organization [facility] Address [address] [place] [address] Phone Care Team Providers Care Spring Setter Name Role Phone Paula Ritchie MD Primary Care Provider [phone] Darlene Tobar MD Primary Care Provider Jojo Christensen MD Primary Care Provider [phone] Darlene Tobar MD Primary Care Provider [phone] Darlene Tobar MD Primary Care Provider [phone] Poncho Thompson MD Primary Care Provider Encounter Details Date Type Department Care Team (Late st Contact Info) Description 10/03/2016 Procedure Pass BWF Periop 1st floor [address] [place] [address] Social History Tobacco Use Types Packs/Day Years [...] [facility] [address] [place] [address] Emmanuel Calixto MD [address] [place] [address] [email or web address] 07/28/2025 1:30 PM EDT Nurse Only [facility] [address] [place] [address] Emmanuel Calixto MD [address] [place] [address] 08/04/2025 1:00 PM EDT Nurse Only [facility] [address] [place] [address] Emmanuel Calixto MD [address] [place] [address] 08/18/2025 1:00 PM EDT Nurse Only [facility] [address] [place] [address] Emmanuel Calixto MD [address] [place] [address] 09/01/2025 1:00 PM EST Nurse Only [facility] [address] [place] [address] Emmanuel Calixto MD [address] [place] [address] [email or web address] 10/04/2025 9:30 AM EST Office Visit [facility] Neuromuscular Service [address] [facility], 8th [place] [address] Edgar Bowers MD, PhD [address] [place] [address] [email or web address] 10/24/2025 8:00 AM EST Office Visit [facility] [place] [address] [place] [address] Edgar Kaur MD [address] [place] [address] [email or web address] 01/11/2026 9:30 AM EDT Office Visit [facility] [address] [facility], [address] [place] [address] Poncho Thompson MD [address] [place] [address], [address] [address] [email or web address] documented as of this encounter Visit Diagnoses Not on filedocumented in this encounter Additional Health Concerns Assessment Noted Time PHQ-2 Depression Total Score: 0 09/19/20 16 9:07 AM EST documented as of this encounter Care Teams Spring Setter Relationship Specialty Start Date End Date Paula Ritchie MD [address] [place] [address] PCP - General 06/13/16 09/26/20 Darlene Tobar MD [address] [place] [address] [place] [address] PCP - General Internal Medicine 09/27/20 12/15/20 Jojo Christensen MD [address] [facility], [address] [place] [address] [email or web address] PCP - General Internal Medicine 12/16/2012/19 Darlene Tobar MD [address] [place] [address] [place] [address] PCP - General Internal Medicine 12/20/20 12/31/21 Darlene Tobar MD [facility] [place] [address] PCP - General Internal Medicine 01/01/22 02/09/24 Poncho Thompson MD [address] [place] [address], [place] [address] [email or web address] PCP - General Internal Medicine 02/10/24 documented as of this encounter Additional Source Comments The information contained in this document represents components of the legal health record. It is not the complete legal health record.[facility]
--- OUTSIDE RECORDS SUMMARY | 2025-07-19 06:57 | XMS_ITS | Encounter Summary ---
Author Organization [facility] Address [address] [place] [address] Phone Care Team Providers Care Armed Custom Protection Officer Name Role Phone Paula Ritchie MD Primary Care Provider [phone] Darlene Tobar MD Primary Care Provider Jojo Christensen MD Primary Care Provider [phone] Darlene Tobar MD Primary Care Provider [phone] Darlene Tobar MD Primary Care Provider [phone] Poncho Thompson MD Primary Care Provider Encounter Details Date Type Department Care Team (Late st Contact Info) Description 10/26/2016 Procedure Pass [facility], [place] [address] [place] [address] Social History Tobacco Use Types Packs/Day Years [...] [facility], [facility] [address] [place] [address] Emmanuel Calixto MD [address] [place] [address] [email or web address] 07/28/2025 1:30 PM EDT Nurse Only [facility] [address] [place] [address] Emmanuel Calixto MD [address] [place] [address] 08/04/2025 1:00 PM EDT Nurse Only [facility] [address] [place] [address] Emmanuel Calixto MD [address] [place] [address] [email or web address] 08/18/2025 1:00 PM EDT Nurse Only [facility] [address] [place] [address] Emmanuel Calixto MD [address] [place] [address] 09/01/2025 1:00 PM EST Nurse Only [facility] [address] [place] [address] Emmanuel Calixto MD [address] [place] [address] 10/04/2025 9:30 AM EST Office Visit [facility] Neuromuscular Service [address] [facility], 8th [place] [address] Edgar Bowers MD, PhD [address] [place] [address] [email or web address] 10/24/2025 8:00 AM EST Office Visit [facility] [place] [address] [place] [address] Edgar Kaur MD [address] [place] [address] [email or web address] 01/11/2026 9:30 AM EDT Office Visit [facility] Primary Care Associates [address] [facility], [address] [place] [address] Poncho Thompson MD [address] [place] [address], [address] [address] [email or web address] documented as of this encounter Visit Diagnoses Not on filedocumented in this encounter Additional Health Concerns Assessment Noted Time PHQ-2 Depression Total Score: 0 09/19/20 16 9:07 AM EST documented as of this encounter Care Teams Armed Custom Protection Officer Relationship Specialty Start Date End Date Paula Ritchie MD [address] [place] [address] PCP - General 06/13/16 09/26/20 Darlene Tobar MD [address] [place] [address] [place] [address] PCP - General Internal Medicine 09/27/20 12/15/20 Jojo Christensen MD [address] [facility], [address] [place] [address] [email or web address] PCP - General Internal Medicine 12/16/2012/19 Darlene Tobar MD [address] [place] [address] [place] [address] PCP - General Internal Medicine 12/20/20 12/31/21 Darlene Tobar MD [facility] [address] PCP - General Internal Medicine 01/01/22 02/09/24 Poncho Thompson MD [address] [place] [address], [place] [address] [email or web address] PCP - General Internal Medicine 02/10/24 documented as of this encounter Additional Source Comments The information contained in this document represents components of the legal health record. It is not the complete legal health record.[facility]
--- OUTSIDE RECORDS SUMMARY | 2025-07-19 06:57 | XMS_ITS | Encounter Summary ---
Author Organization [facility] Address [address] [place] [address] Phone Care Team Providers Care Greens Keeper Name Role Phone Poncho Thompson MD Primary Care Provider Encounter Details Date Type Department Care Team (Late st Contact Info) Description 12/02/2024 Telephone [facility] Comprehensive Ophthalmology [address] [address] Beatrice Tolbert MD [address] [place] [address] [email or web address] [email or web address] Social History Tobacco Use Types Packs/Day Years [...] Upcoming Encounters Date Type Department Care Team ([facility] st Contact Info) Description 07/21/2025 1:00 PM EDT Nurse Only [facility] [address] [place] [address] Emmanuel Calixto MD [address] [place] [address] [email or web address] 07/28/2025 1:30 PM EDT Nurse Only [facility] [address] [place] [address] Emmanuel Calixto MD [address] [place] [address] [email or web address] 08/04/2025 1:00 PM EDT Nurse Only [facility] [address] [place] [address] Emmanuel Calixto MD [address] [place] [address] [email or web address] 08/18/2025 1:00 PM EDT Nurse Only [facility] [address] [place] [address] Emmanuel Calixto MD [address] [place] [address] [email or web address] 09/01/2025 1:00 PM EST Nurse Only [facility] [address] [place] [address] Emmanuel Calixto MD [address] [place] [address] [email or web address] 10/04/2025 9:30 AM EST Office Visit [facility] Neuromuscular Service [address] [place] [address] Edgar Bowers MD, PhD [address] [facility] [place] [address] [email or web address] 10/24/2025 8:00 AM EST Office Visit [facility] [place] [address] [place] [address] Edgar Kaur MD [address] [place] [address] [email or web address] 01/11/2026 9:30 AM EDT Office Visit [facility] Primary [facility] Associates [address] [place] [address] Poncho Thompson MD [address] [place] [address] [email or web address] documented as of this encounter Visit Diagnoses Not on filedocumented in this encounter Additional Health Concerns Assessment Noted Time PHQ-2 Depression Total Score: 0 05/04/20 24 11:49 AM EDT documented as of this encounter Care Teams Greens Keeper Relationship Specialty Start Date End Date Poncho Thompson MD [address] [place] [address] [email or web address] PCP - General Internal Medicine 02/10/24 documented as of this encounter Additional Source Comments The information contained in this document represents components of the legal health record. It is not the complete legal health record.[facility]
--- OUTSIDE RECORDS SUMMARY | 2025-07-19 06:57 | XMS_ITS | Clinical Summary ---
Author Organization [address] Address [address] [place] [id number] Care Team Providers Care Network Planner Name Role Phone Obtain, Unable To Primary Care Provider Unavaila ble Allergies Active Allergy Reactions Criticality Noted Date Comments Gluten Protein Intolerance 09/24/2018 Ibuprofen Nausea Low 01/17/2011 Latex, Natural Rubber Rash,Shortness Of Breath,Unknown High 07/15/2011 Mold Cough 05/12/2019 Penicillins Nausea Low 01/17/2011 Sulfamethoxazole-Trimethopr im Hives High 01/17/2011 Medications albuterol sulfate 90 mcg/actuation HFA aerosol inhaler Inhale 2 puffs into the lungs every 6 (six) hours as needed. 06/26/2022 Active ascorbic acid, vitamin C, (VITAMIN C) 1000 mg tablet Take 1 tablet by mouth daily. Active cyanocobalamin 1000 MCG tablet Take 1 tablet by mouth daily. Active fluticasone propionate (FLONASE) 50 mcg/actuation nasal spray 2 sprays by Nasal route daily. 01/28/2022 Active fluticasone propionate (FLOVENT HFA) 110 mcg/actuation inhaler Inhale 2 puffs into the lungs 2 (two) times daily. 06/26/2022 Active inhalational spacing device (AEROCHAMBER) inhaler Inhale 2 each into the lungs 2 (two) times daily. 07/01/2022 Active pantoprazole (PROTONIX) 40 mg tablet Take 40 mg by mouth daily. 06/17/2022 Active TRAVATAN Z 0.004 % ophthalmic solution Place 1 drop into both eyes every morning. 06/13/2022 Active cholecalciferol (D3-2000) 50 mcg (2,000 unit) capsule Take 2,000 Units by mouth daily. Active Immunizations Immunization Administration Dates Next Due COVID-19 Vaccine - PFIZER 06/05/2021,05/15/2021 Influenza, high dose, quad, 0.7 mL, preservative free 2022 Social History Tobacco Use Types Packs/Day Years Used Date Smoking Tobacco: Never Assessed Comments Unknown Sex and Gender Information Value Date Recorded Sex Assigned at Not on file Legal Sex Female 7:49 AM EST Gender Identity Female 01/08/2023 9:06 AM EDT Sexual Orientation Not on file Plan of Treatment Health Maintenance Due Date Last Done Comments HIV screening 1969 Hepatitis C screening 1974 Tetanus adult (Td q 10,TDAP once) 1976 Breast cancer screening 1996 Lipid disorder screening 1996 Colon cancer screening, Colonoscopy 2001 Diabetes screening 2001 Pneumococcal Vaccine (50+ years) (1 of 1 - PCV) 2006 Shingles vaccine (Shingrix) (1 of 2 - Shingrix (RZV) 2 Dose Standard Series) 2006 Influenza vaccine 05/19/2025 2022 Covid-19 vaccine series (3 - season) 2025 06/05/2021, 05/15/2021 RSV Immunization (1 - 1-dose 75+ series) 2031 Osteoporosis screening (bone density) Completed 08/02/2022, 08/02/2022 Cervical cancer screening Discontinued Meningococcal B Vaccine Aged Out No l onger eligible based on patient's age to complete this topic Meningococcal Vaccine Aged Out No petr lauro eligible based on patient's age to complete this topic Insurance [facility] MGD LUANNEJOSE [facility] MGD CHRIS [facility] MGD Care Teams Network Planner Relationship Specialty Start Date End Date Obtain, Unable To PCP - General 08/02/18
--- OUTSIDE RECORDS SUMMARY | 2025-07-19 06:57 | XMS_ITS | Clinical Summary ---
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 Role Phone Poncho Thompson MD Primary Care Provider Allergies Active Allergy Reactions Criticality Noted Date Comments Gluten Protein 09/24/2018 Ibuprofen Nausea Only Low 01/17/2011 Latex Unknown 07/15/2011 Latex, Natural Rubber Maculopapular Rash ,Other (See Comments),Rash,Shortness Of Breath,Unknown High 07/15/2011 Mold 05/12/2019 Penicillins Nausea Only Low 01/17/2011 Sulfamethoxazole-Trimethop rim Hives Medium 01/17/2011 Medications calcium citrate-vitamin D3 (CITRACAL+D) 315-200 mg-unit per tablet Reported on 10/21/2016 06/11/20 12 Active inhaler spacing device (AEROCHAMBER,LANI ATHERITE) Spcr Inhale 2 each into the lungs 2 (two) times a day. 1 each 3 07/01/20 22 Active estradioL (ESTRACE) 0.01 % (0.1 mg/gram) vaginal cream Place 2 g vaginally 2 (two) times a week. 42.5 g 1 03/19/20 23 Active Additional Information Patient not taking.Reported on 05/04/2024 levalbuterol (XOPENEX HFA) 45 mcg/actuation inhalerIndicatio ns:Mild intermittent asthma without complication Inhale 1-2 puffs into the lungs every 4 (four) hours as needed for wheezing. 45 g 3 10/28/19 24 Active latanoprost (XALATAN) 0.005 % ophthalmic solution Place 1 drop into each eye nightly at bedtime. 7.5 mL 3 01/31/20 25 Active assist device for inhaler Christina 1 each by See Administration Instructions route as directed. 1 each 1 03/23/20 25 Active fluticasone furoate (ARNUITY ELLIPTA) 100 mcg/actuation DsDvIndications: Chronic cough,Mild intermittent asthma without complication Inhale 1 puff into the lungs daily. 1 each 5 05/26/20 25 Active EPINEPHrine 0.3 mg/0.3 mL auto-injector Inject 0.3 mL (0.3 mg total) into the muscle as needed for anaphylaxis. 2 each 1 06/23/20 25 Active fluticasone propionate 110 mcg/actuation inhaler Inhale 2 puffs into the lungs 2 (two) times a day. 36 g 1 07/03/20 25 Active ketorolac (ACULAR) 0.5 % ophthalmic solution Place 1 drop into each eye 4 (four) times a day for 4 days. Start after laser procedure 5 mL 05/24/20 25 025 Discontin ued(No longer taking) Active Problems Problem Noted Date Diagnosed Date Allergic rhinitis 03/24/2025 Assessment & Plan (03/24/2025 4:06 PM EDT): History of significant allergic rhinitis currently in the latter portions of her buildup phase being treated for dust mite, mold, as well as tree, grass and weed pollen allergy. She is welcome to transfer care of her allergy immunotherapy to our practice. Will be happy to take over once she is able to transport her serums from [place] here. Will then continue with weekly buildup phase. Hyperlipidemia 07/06/2024 Assessment & Plan (07/06/2024 6:27 PM EDT): Borderline lipid levels with ASCVD risk >10%. Patient prefers lifestyle modifications over statin therapy. -Encourage dietary modifications and weight loss. -Repeat lipid panel in 3 and 6 months. Prediabetes 07/06/2024 Assessment & Plan (07/06/2024 6:28 PM EDT): A1c in prediabetic range. -Encourage dietary modifications and weight loss. -Repeat A1c in 3 and 6 months. Healthcare maintenance 05/04/2024 Assessment & Plan (05/04/2024 12:49 PM EDT): Labs ordered today. -Complete ordered labs. Vaccination Status: Discussed Pneumovax and Zostavir vaccines. Patient to consider and potentially receive at local pharmacy. Declined additional COVID vaccines due to possible neuropathy post-vaccination. -Consider Pneumovax and Zostavir vaccines at local pharmacy. Tobacco Use: Patient reported smoking history of approximately 10 pack-years, with cessation in 2000. No current tobacco use. -No further action required at this time. Mild persistent asthma without complication 12/2023 Assessment & Plan (03/24/2025 4:02 PM EDT): At least mild persistent asthma on maintenance Flovent and no use of short acting bronchodilator. Spirometry's have all shown at least moderate obstruction however. Unclear whether there is significant reversibility suggesting concurrent COPD. I have asked that she continue use of her inhaled corticosteroid with a spacer. She can add use of Xopenex which she has now trialed and confident on its safety. If she finds benefit from Xopenex and using it at least daily, I have suggested changing to combination ICS/LABA. We will plan on repeating PFTs with Xopenex bronchodilator as well as FeNO testing in approximately 3 months. Assessment & Plan (11/21/2024 9:08 PM EST): Asthma/COPD GERD Overweight Former smoker Asbestos exposure LISA on CPAP Allergic rhinitis Elevated IgE Dr. Weaver 03/16/23 67 y/o hx of LISA on CPAP, GERD, allergic rhinitis, obstructive lung disease, former smoker quit in 2001, elevated IgE who presents for shortness of breath and cough. She is taking Flovent 1 puff in the morning 1 puff at night. She does still have significant allergy is in particular when she is cutting grass she has noticed more shortness of breath. Barium swallow showed: Evidence of reflux per the patient report Prior visit: The patient indicates that she started having shortness of breath in 2016. Around that time she was about 60 pounds heavier than she is currently. She states that she slowly started to gain weight after she quit smoking in 2001. She states that her shortness of breath is most progressed when she is going up stairs or walking on an incline. She states that she is walking on a flat surface she can walk for many miles without any trouble. She was previously seen at an outside hospital and had PFTs notable for moderate obstruction and reduced DLCO. Previously seen pulmonary at OSH and had PFTs notable for moderate obstruction and a reduced DLCO. CT chest w radiographic emphysema in the upper lobes, patulous esophagus, small area of RML scarring. TTE normal RV size and function, trace TR, eRVSP 32. Labs showed a normal A1AT and an elevated IgE. Patient was prescribed Flovent however did not start the medication. She states that she does have a significant allergy history most notable to trees. She does have 2 cats at home however these do not seem to contribute to her cough or shortness of breath. Her cough that she states is controlled as long as her acid reflux is controlled. 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 She is not on any acid reducing medication at this time. She is scheduled for a barium swallow next week. She states as long as she controls her diet there is no issues with acid reflux. She states currently she does not have a cough. 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 She denies a significant asthma history from her family. She does have her own smoking history and quit in 2001 and had secondhand smoke exposure from her parents growing up. 67 y/o hx of LISA on CPAP, GERD, allergic rhinitis, obstructive lung disease, former smoker quit in 2001, elevated IgE who presents for shortness of breath and cough. We discussed that her symptoms are likely a combination of asthma COPD overlap. She was started on flovent during her last clinic visit. Pulmonary function test slightly improved. We discussed in detail that she has already done what was best for her health which is quit smoking as well as lose weight. When you review her pulmonary function test her TLC is not elevated which is probably related to her body habitus. She states that she would like to continue to lose weight. Her barium swallow did show evidence of acid reflux. We discussed how this could make asthma worse. Given the fact that her pulmonary function tests are overall improving on Flovent and she has a history of glaucoma we will avoid adding on a LABA or LAMA at this time she is interested in seeing allergy given the fact that she has many Environmental allergens and would like to explore potential allergy shots. 10/21/23 First visit with me. Former patient of Dr. Weaver in our Division. Flovent 110 one puff BID. She does not notice any symptoms if she misses a day or so. Last PFT's showed improvement with Flovent. There was discussion of anticipated further improvement with weight loss. Weight has now been stable. She had lost weight with diet and exercise. Treadmill, Peloton. Symptoms: SOB, sneeze, cough if she has acid reflux, occasional wheeze with exertion (perhaps a couple of times a week). No nocturnal wheeze. Chamomile tea relaxes her. She has appt in Allergy in February. Albuterol makes her very jittery. - Continue fluticasone at current dose. - Trial of levalbuterol 05/04/[address] Thompson. She clarifies that she quit smoking in 2000, not 2020, and that she did not smoke 1 ppd for 30 years, rather variable amounts on and off. She reports that two lung scans 2007, 2015 from [facility] and some more from [place] will be coming. Has not tried levalbuterol, since no emergencies. 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 Working on her weight with variable success. Seven air purifiers at home, cats no longer bother her. No travel to [facility], [place] or elsewhere in the last couple of year. She does a lot of gardening, however. Saw Dr. King in Allergy 02/10/24: Allergic rhinitis: Nasacort, sinus irrigation, Zaditor eye drops, allergen immunotherapy. Asthma/COPD, switch to symbicort. Food sensitivities. ?CT chest today with new EDY nodule. Differential diagnosis includes benign, including fungal (note her gardening history), as well as malignant. - Increase Flovent 110 from one puff BID to two puffs BID. If no change, OK to start Symbicort as suggested by Dr. King. - Wants echo at [facility] for her mitral valve. Mild MR (would not necessarily require routine followup echo). Defer to primary care. 10/2/24 We reviewed her imaging again today: CT chest 05/04/24: New EDY nodule (not mentioned in radiology report) #174/421, series 4, which is different from 121/421 that was described in radiology report. CT chest 07/08/24:The EDY nodule that was new in April is the same or slightly smaller now (#164/391, series 4). We reviewed risk/benefit of imaging, radiation exposure. I answered her excellent questions to the best of my ability. EDY nodue stable x 2 months, as above. See next CT in October. If stable, consider subsequent CT 6-12 months later. 10/25/24 Imaging as noted. Repeat CT chest 6 months for EDY nodule (smaller), and new atelectasis in medial RLL. See me after. We discussed risk/benefit of imaging, including radiation exposure. Assessment & Plan (07/22/2024 8:44 AM EDT): Asthma/COPD GERD Overweight Former smoker Asbestos exposure LISA on CPAP Allergic rhinitis Elevated IgE Dr. Weaver 03/16/23 67 y/o hx of LISA on CPAP, GERD, allergic rhinitis, obstructive lung disease, former smoker quit in 2001, elevated IgE who presents for shortness of breath and cough. She is taking Flovent 1 puff in the morning 1 puff at night. She does still have significant allergy is in particular when she is cutting grass she has noticed more shortness of breath. Barium swallow showed: Evidence of reflux per the patient report Prior visit: The patient indicates that she started having shortness of breath in 2016. Around that time she was about 60 pounds heavier than she is currently. She states that she slowly started to gain weight after she quit smoking in 2001. She states that her shortness of breath is most progressed when she is going up stairs or walking on an incline. She states that she is walking on a flat surface she can walk for many miles without any trouble. She was previously seen at an outside hospital and had PFTs notable for moderate obstruction and reduced DLCO. Previously seen pulmonary at OSH and had PFTs notable for moderate obstruction and a reduced DLCO. CT chest w radiographic emphysema in the upper lobes, patulous esophagus, small area of RML scarring. TTE normal RV size and function, trace TR, eRVSP 32. Labs showed a normal A1AT and an elevated IgE. Patient was prescribed Flovent however did not start the medication. She states that she does have a significant allergy history most notable to trees. She does have 2 cats at home however these do not seem to contribute to her cough or shortness of breath. Her cough that she states is controlled as long as her acid reflux is controlled. 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 She is not on any acid reducing medication at this time. She is scheduled for a barium swallow next week. She states as long as she controls her diet there is no issues with acid reflux. She states currently she does not have a cough. 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 She denies a significant asthma history from her family. She does have her own smoking history and quit in 2001 and had secondhand smoke exposure from her parents growing up. 67 y/o hx of LISA on CPAP, GERD, allergic rhinitis, obstructive lung disease, former smoker quit in 2001, elevated IgE who presents for shortness of breath and cough. We discussed that her symptoms are likely a combination of asthma COPD overlap. She was started on flovent during her last clinic visit. Pulmonary function test slightly improved. We discussed in detail that she has already done what was best for her health which is quit smoking as well as lose weight. When you review her pulmonary function test her TLC is not elevated which is probably related to her body habitus. She states that she would like to continue to lose weight. Her barium swallow did show evidence of acid reflux. We discussed how this could make asthma worse. Given the fact that her pulmonary function tests are overall improving on Flovent and she has a history of glaucoma we will avoid adding on a LABA or LAMA at this time she is interested in seeing allergy given the fact that she has many Environmental allergens and would like to explore potential allergy shots. 10/21/23 First visit with me. Former patient of Dr. Weavre in our Division. Flovent 110 one puff BID. She does not notice any symptoms if she misses a day or so. Last PFT's showed improvement with Flovent. There was discussion of anticipated further improvement with weight loss. Weight has now been stable. She had lost weight with diet and exercise. Treadmill, Peloton. Symptoms: SOB, sneeze, cough if she has acid reflux, occasional wheeze with exertion (perhaps a couple of times a week). No nocturnal wheeze. Chamomile tea relaxes her. She has appt in Allergy in February. Albuterol makes her very jittery. - Continue fluticasone at current dose. - Trial of levalbuterol 05/04/[address] Thompson. She clarifies that she quit smoking in 2000, not 2020, and that she did not smoke 1 ppd for 30 years, rather variable amounts on and off. She reports that two lung scans 2007, 2015 from [facility] and some more from [place] will be coming. Has not tried levalbuterol, since no emergencies. 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 Working on her weight with variable success. Seven air purifiers at home, cats no longer bother her. No travel to [facility], [place] or elsewhere in the last couple of year. She does a lot of gardening, however. Saw Dr. King in Allergy 02/10/24: Allergic rhinitis: Nasacort, sinus irrigation, Zaditor eye drops, allergen immunotherapy. Asthma/COPD, switch to symbicort. Food sensitivities. ?CT chest today with new EDY nodule. Differential diagnosis includes benign, including fungal (note her gardening history), as well as malignant. - Increase Flovent 110 from one puff BID to two puffs BID. If no change, OK to start Symbicort as suggested by Dr. King. - Wants echo at [facility] for her mitral valve. Mild MR (would not necessarily require routine followup echo). Defer to primary care. 07/20/24 EDY nodue stable x 2 months, as above. See next CT in October. If stable, consider subsequent CT 6-12 months later. Assessment & Plan (05/31/2024 12:20 PM EDT): Asthma/COPD GERD Overweight Former smoker Asbestos exposure LISA on CPAP Allergic rhinitis Elevated IgE Dr. Weaver 03/16/23 67 y/o hx of LISA on CPAP, GERD, allergic rhinitis, obstructive lung disease, former smoker quit in 2001, elevated IgE who presents for shortness of breath and cough. She is taking Flovent 1 puff in the morning 1 puff at night. She does still have significant allergy is in particular when she is cutting grass she has noticed more shortness of breath. Barium swallow showed: Evidence of reflux per the patient report Prior visit: The patient indicates that she started having shortness of breath in 2017. Around that time she was about 60 pounds heavier than she is currently. She states that she slowly started to gain weight after she quit smoking in 2001. She states that her shortness of breath is most progressed when she is going up stairs or walking on an incline. She states that she is walking on a flat surface she can walk for many miles without any trouble. She was previously seen at an outside hospital and had PFTs notable for moderate obstruction and reduced DLCO. Previously seen pulmonary at OSH and had PFTs notable for moderate obstruction and a reduced DLCO. CT chest w radiographic emphysema in the upper lobes, patulous esophagus, small area of RML scarring. TTE normal RV size and function, trace TR, eRVSP 32. Labs showed a normal A1AT and an elevated IgE. Patient was prescribed Flovent however did not start the medication. She states that she does have a significant allergy history most notable to trees. She does have 2 cats at home however these do not seem to contribute to her cough or shortness of breath. Her cough that she states is controlled as long as her acid reflux is controlled. 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 She is not on any acid reducing medication at this time. She is scheduled for a barium swallow next week. She states as long as she controls her diet there is no issues with acid reflux. She states currently she does not have a cough. 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 She denies a significant asthma history from her family. She does have her own smoking history and quit in 2001 and had secondhand smoke exposure from her parents growing up. 67 y/o hx of LISA on CPAP, GERD, allergic rhinitis, obstructive lung disease, former smoker quit in 2001, elevated IgE who presents for shortness of breath and cough. We discussed that her symptoms are likely a combination of asthma COPD overlap. She was started on flovent during her last clinic visit. Pulmonary function test slightly improved. We discussed in detail that she has already done what was best for her health which is quit smoking as well as lose weight. When you review her pulmonary function test her TLC is not elevated which is probably related to her body habitus. She states that she would like to continue to lose weight. Her barium swallow did show evidence of acid reflux. We discussed how this could make asthma worse. Given the fact that her pulmonary function tests are overall improving on Flovent and she has a history of glaucoma we will avoid adding on a LABA or LAMA at this time she is interested in seeing allergy given the fact that she has many Environmental allergens and would like to explore potential allergy shots. 10/21/23 First visit with me. Former patient of Dr. Weaver in our Division. Flovent 110 one puff BID. She does not notice any symptoms if she misses a day or so. Last PFT's showed improvement with Flovent. There was discussion of anticipated further improvement with weight loss. Weight has now been stable. She had lost weight with diet and exercise. Treadmill, Peloton. Symptoms: SOB, sneeze, cough if she has acid reflux, occasional wheeze with exertion (perhaps a couple of times a week). No nocturnal wheeze. Chamomile tea relaxes her. She has appt in Allergy in February. Albuterol makes her very jittery. - Continue fluticasone at current dose. - Trial of levalbuterol 05/04/24 CT chest today with new EDY nodule. Differential diagnosis includes benign, including fungal (note her gardening history), as well as malignant. Plan - CT chest in June at [facility] for new EDY nodule. We will review after. - Return 6 months. - Increase Flovent 110 from one puff BID to two puffs BID. If no change, OK to start Symbicort as suggested by Dr. King. - Wants echo at [facility] for her mitral valve. Mild MR (would not necessarily require routine followup echo). Defer to primary care. Assessment & Plan (05/04/2024 12:57 PM EDT): Work up in progress through pulmonary clinic Assessment & Plan (02/11/2024 8:51 AM EDT): They have a history of sleep apnea, asthma, pulmonary nodules, and asbestos exposure. A CT scan of the chest in 2021 revealed emphysema, unchanged scarring and bronchiectasis, and an unchanged noncalcified pulmonary nodule likely benign. A CT scan is scheduled for May 04, along with a pulmonary function test and an office visit with pulmonology. They will continue using CPAP, a steroid inhaler, and an asthma rescue inhaler. Assessment & Plan (10/21/2023 5:20 PM EST): Imp Asthma/COPD GERD Overweight Former smoker Asbestos exposure Plan - Continue fluticasone at current dose. - Trial of levalbuterol - CT chest 6 months in this patient with increased risk. - see me after with PFT's. Pulmonary nodule 10/21/2023 Assessment & Plan (03/24/2025 4:04 PM EDT): Multiple very small and assuredly benign pulmonary nodules. Given the size, and waxing and waning nature, I have recommended a 12-month follow-up CT in October 2025. Assessment & Plan (05/04/2024 12:48 PM EDT): Stable noncalcified pulmonary nodules (3mm) over a 5-year period. No change in bronchiectasis or emphysema over the same period. Patient scheduled for a follow-up CT scan today. Follow-up with pulmonary team today for PFTs and chest CT. The pulmonary team will determine the need for changes in inhaler regimen and further CT nodule follow-up. -Complete PFTs and chest CT today. -Obtain previous CT scans and reports from [facility] and other facilities for comparison. Assessment & Plan (02/11/2024 8:50 AM EDT): They have a history of sleep apnea, asthma, pulmonary nodules, and asbestos exposure. A CT scan of the chest in 2021 revealed emphysema, unchanged scarring and bronchiectasis, and an unchanged noncalcified pulmonary nodule likely benign. A CT scan is scheduled for May 04, along with a pulmonary function test and an office visit with pulmonology. They will continue using CPAP, a steroid inhaler, and an asthma rescue inhaler. Obstructive sleep apnea (adult) (pediatric) 01/17 Assessment & Plan (05/04/2024 12:57 PM EDT): Stable, using CPAP Assessment & Plan (02/11/2024 9:01 AM EDT): They are currently using a CPAP machine for sleep apnea. Assessment & Plan (11/07/2022 11:22 AM EST): I had the pleasure of seeing Ms. Mcadams today via telemedicine in follow-up for ongoing assessment/management of her sleep apnea. Since her last visit, she underwent overnight in laboratory split-night study through [facility] which demonstrated evidence of sleep apnea with AHI of 15.8 and AHI 4% of 6.3 during the diagnostic portion of the split-night study. Patient did well with positive airway pressure therapy. Interpreting physician recommended AutoPap at 10 to 14 cm of water. Patient states that she continues to do well with her positive airway pressure therapy and I have reviewed her previous compliance efficacy data which showed minimal apnea at her current pressure setting of 10. I recommended that she continue with nightly use which has been prescribed by another physician. We discussed sleep hygiene, potential role for sleep surgery and signs/symptoms that should be brought to my attention. 1 year follow-up visit is advised Assessment & Plan (01/28/2022 11:02 AM EDT): I had the pleasure of seeing Ms. Mcadams as a new patient today for airway evaluation. She describes significant ongoing symptoms of poor quality sleep despite use of positive airway pressure therapy. It has been many years since she has undergone diagnostic sleep testing and she states that her symptoms are progressing. I made arranges for her to undergo overnight portable sleep testing which be coordinated in the near future. We discussed the rationale for testing as well as some of the implications of untreated LISA. We discussed the fact that positive airway pressure therapy is generally considered most appropriate first-line treatment. Weight loss, nonspine sleep positioning and sleep hygiene are all appropriate. All questions were answered to her satisfaction. Chronic cough 01/28/2022 Assessment & Plan (01/28/2022 11:03 AM EDT): Patient also describes a chronic cough and breathing problems . She was assured that on her detailed examination of the upper aerodigestive tract, there is no evidence of clear etiology. In particular, there is no mass lesion, infection, foreign body, vocal cord paralysis or pooled secretions. I am pleased that she will be seeing a glue mounter operator later today. Vocal hygiene measures and treatment for any potential reflux are appropriate. Edema of larynx 01/28/2022 Microscopic hematuria 05/14/2015 Assessment & Plan (07/06/2024 6:27 PM EDT): Trace blood in urine, previously evaluated by Urology with negative findings. Patient requests repeat evaluation. -Order urinalysis with microscopic examination. Assessment & Plan (05/14/2015 1:28 PM EDT): Assessment: 59 y/o female with microscopic hematuria incidentally found Plan: Discussed risk of urothelial cancers in the setting of microscopic hematuria. Mrs Mcadams currently doesn't smoke but has an approximately 10 pack year history of smoking when younger. We will proceed with completing a full hematuria work- up which includes: 1) cystoscopy - evaluation of lower urinary tracts, 2) CT- Urogram - in order to better evaluate upper urinary tracts, and 3) urine cytology - will obtain at time of cystoscopic evaluation. We will also perform a complete bi-manual examination at time of cystoscopy. She will be prescribed appropriate prophylactic antibiotics. Concerns were thoroughly addressed. Ample time to answer questions was offered. Acquired acanthosis nigricans 11/29/2012 Overview (12/09/2014): Acquired acanthosis nigricans Osteoporosis 06/11/2012 Overview (12/09/2014): Osteoporosis Obesity 12/03/2011 Overview (12/09/2014): Obesity Glaucoma 07/15/2011 Overview (12/09/2014): Glaucoma - borderline ; Borderline Uterine leiomyoma 07/15/2011 Overview (12/09/2014): Fibroids Encounters Date Type Department Care Team Description 07/14/2025 1:00 PM EDT Nurse Only [facility] [address] [place] [address] Baldomero Swanson MD Allergic rhinitis, unspecified seasonality, unspecified trigger (Primary Dx) 07/07/2025 1:00 PM EDT Nurse Only [facility] [address] [place] [address] Rakan Reed MD, MS Allergic rhinitis, unspecified seasonality, unspecified trigger (Primary Dx) 07/05/2025 8:00 AM EDT Office Visit [facility] [address] [facility] 1st [place] [address] Edgar Kaur MD Primary open angle glaucoma of both eyes, mild stage (Primary Dx) 07/03/2025 Refill [facility] [address]nd [address], [address] [place] [address] Cem Mo MD Med Change Request 07/03/2025 Orders Only [facility] [address] [facility] [address] [facility], 2nd [address], [address] [place] [address] Cem Mo MD 06/23/2025 1:00 PM EDT Nurse Only [facility] [address] [place] [address] Emmanuel Calixto MD Allergic rhinitis, unspecified seasonality, unspecified trigger (Primary Dx) 06/23/2025 Refill [facility] [address] [place] [address] Jeanine Murillo LPN Medication Refill (Pt requesting epipen for emergency) 06/12/2025 1:00 PM EDT Nurse Only [facility] [address] [place] [address] Edgar Marks MD Allergic rhinitis, unspecified seasonality, unspecified trigger (Primary Dx) 05/29/2025 1:00 PM EDT Nurse Only [facility] [address] [place] [address] Emmanuel Calixto MD Allergic rhinitis, unspecified seasonality, unspecified trigger (Primary Dx) 05/26/2025 3:30 PM EDT Procedure visit [facility] 1st Floor [address] [facility] 1st [place] [address] Edgar Kaur MD Primary open angle glaucoma of both eyes, mild stage 05/26/2025 Orders Only [facility] [address] [facility] [address] [facility]nd [address], [address] [place] [address] Cem Mo MD Chronic cough; Mild intermittent asthma without complication 05/15/2025 1:00 PM EDT Nurse Only [facility] [address] [place] [address] Emmanuel Calixto MD Allergic rhinitis, unspecified seasonality, unspecified trigger (Primary Dx) 05/14/2025 Refill [facility] [address] [facility] [address] [facility], 2nd [address], [address] [place] [address] Lindsay Cade CNP Medication Refill 05/08/2025 2:00 PM EDT Nurse Only [facility] [address] [place] [address] Emmanuel Calixto MD Allergic rhinitis, unspecified seasonality, unspecified trigger (Primary Dx) 04/24/2025 11:30 AM EDT Nurse Only [facility] [address] [place] [address] Emmanuel Calixto MD Allergic rhinitis, unspecified seasonality, unspecified trigger (Primary Dx) 04/20/2025 Telephone [facility] [address] [place] [address] Emmanuel Calixto MD from Last 3 Months Immunizations Immunization Administration Dates Next Due Influenza High-Dose Quadriva lent Preservative Free IM 09/11/2023,2022 Influenza Quadrivalent w/ Preservative IM 01/21/2012(Deferred: Other - , Ordered By: [id number]) Tdap 03/18/2017 Family History Medical History Relation Comments Asthma Brother 1 Heart disease Brother 1 Nephrolithiasis Brother 1 Cancer Father Prostate Dementia Father Prostate cancer Father Heart disease Mother Heart disease Sister Breast cancer Unspecified ggm Colon cancer Neg Hx Diabetes Neg Hx Relation Status Comments Brother 1 Alive Brother 2 Alive Father Mother Alive Sister Alive Unspecified Social History Tobacco Use Types Packs/Day Years Used Date Smoking Tobacco: Former Cigarettes 0.5 20 0 10/19/1980 - 2000 Smokeless Tobacco: Never Tobacco Cessation:Counseling Given: Not Answered Alcohol Use Standard Drinks/Week Comments No 0 [...] Orientation Straight 12/20/2020 10 :04 AM EST Last Filed Vital Signs Vital Sign Reading Time Taken Comments Blood Pressure 170/108 05/26/2025 1:51 PM EDT Pulse 87 05/26/2025 1:51 PM EDT Temperature 36.4 C (97.6 F) 10/25/2024 4:21 PM EST Respiratory Rate 16 03/19/2023 10:48 AM EDT Oxygen Saturation 97% 10/25/2024 4:21 PM EST Inhaled Oxygen Concentration - - Weight 90.7 kg (200 lb) 02/10/2024 12:26 PM EDT Height 167.6 cm (5' 6 ) 02/10/2024 12:26 PM EDT Body Mass Index 32.28 02/10/2024 12:26 PM EDT Plan of Treatment Upcoming Encounters Date Type Department Care Team (Late st Contact Info) Description 07/21/2025 1:00 PM EDT Nurse Only [facility] [address] [facility] [place] [address] [place] [address] Emmanuel Calixto MD [address] [facility] 2nd [place] [address] 07/28/2025 1:30 PM EDT Nurse Only [facility] [address] [place] [address] Emmanuel Calixto MD [address] [place] [address] [email or web address] 08/04/2025 1:00 PM EDT Nurse Only [facility] [address] [place] [address] Emmanuel Calixto MD [address] [place] [address] [email or web address] 08/18/2025 1:00 PM EDT Nurse Only [facility] [address] [place] [address] Emmanuel Calixto MD [address] [place] [address] [email or web address] 09/01/2025 1:00 PM EST Nurse Only [facility] [address] [place] [address] Emmanuel Calixto MD [address] [place] [address] 10/04/2025 9:30 AM EST Office Visit [facility] Neu[facility] Service [address] [facility], 8th [place] [address] Edgar Bowers MD, PhD [address] [place] [address] [email or web address] 10/24/2025 8:00 AM EST Office Visit [facility] [place] [address] [place] [address] Edgar Kaur MD [address] [place] [address] [email or web address] 01/11/2026 9:30 AM EDT Office Visit [facility] [address] [facility] [place] [address] Poncho Thompson MD [address] [place] [address] [email or web address] Health Maintenance Due Date Last Done Comments PNEUMOCOCCAL VACCINES (50+ years) (1 of 2 - PCV) 1975 COLOGUARD 2001 FIT TEST 2001 FOBT 2001 SIGMOIDOSCOPY 2001 VIRTUAL COLONOSCOPY 2001 ZOSTER VACCINES (1 of 2) 2006 RSV VACCINE (1 - Risk 60-74 years 1-dose series) 2016 DEPRESSION SCREENING 05/04/2025 05/04/2024 INFLUENZA VACCINE (#1) 2025 , 09/11/2023, 2022 COVID-19 VACCINE (3 - season) 2025 06/05/2021, 05/15/2021 Adult Td,Tdap Booster 03/18/2027 03/18/2017 MAMMOGRAM 03/18/2027 03/18/2025, 02/18, 10/19/2022, Additional history exists SCREENING FOR DIABETES 07/05/2027 07/05/2024, 2023 LIPID PANEL 07/05/2029 07/05/2024, 01/28/2022 COLONOSCOPY 10/19/2032 10/19/2022 COLORECTAL CANCER SCREENING 10/19/2032 OSTEOPOROSIS SCREENING INITIAL (ONE-TIME) Completed 08/02/2022 HEPATITIS C SCREENING Completed 07/05/2024 SMOKING STATUS SCREENING (Once After 26 Yrs) Completed 07/05/2025 HEPATITIS A VACCINES Aged Out No long er eligible based on patient's age to complete this topic HIB VACCINES Aged Out No longer eligi ble based on patient's age to complete this topic MENINGOCOCCAL VACCINES (ACWY) Aged Out No longer eligible based on patient's age to complete this topic MENINGOCOCCAL VACCINES (B) Aged Out N o longer eligible based on patient's age to complete this topic Medical Devices Not on file Procedures Procedure Name Priority Date/Time Associated Diagnosis Comments LASER TRABECULOPLASTY SELECTIVE - OU - BOTH EYES Routine 05/26/2025 4:11 PM EDT Primary open angle glaucoma of both eyes, mild stage LIPID PANEL Routine 07/05/2024 7:40 AM EDT Healthcare maintenance HEPATITIS C ANTIBODY, QUALITATIVE Routine 07/05/2024 7:40 AM EDT Need for hepatitis C screening test HM COLONOSCOPY FOR RESULT ENTRY ONLY Routine 10/19/2022 HM MAMMOGRAPHY Routine 10/19/2022 BD DXA AXIAL (SPINE) WITH HIP Routine 08/02/2022 8:56 AM EDT Asymptomatic menopausal state from Last 3 Months or Most Recently Relevant to Health Maintenance Results * Laser Trabeculoplasty Selective - OU - Both Eyes (05/26/2025 4:11 PM EDT) Anatomical Region Laterality Modality Head Laser Room Other Narrative 05/26/2025 5:05 PM EDT Whick Protocol Fall Risk Assessment: age >65 (10 pts), medication regimen (5 pts). Timeout performed: Yes. Pre-op Meds Anesthetic Medication: Proparacaine 0.5%. 2:53 PM. Pre-op medications included: Iopidine 0.5%. Other medication, time: 1:56 PM. Laser #1 Information The type of laser was: SLT. Right Eye The energy was: 0.9 mj. Total energy was: 91.61 mj. Lens used was: SLT Lens. Total number of spots/pulses was: 100. Site treated was: right eye. Left Eye The energy was: 0.9 mj. Total energy was: 87.04 mj. Lens used was: SLT Lens. Total number of spots/pulses was: 100. Site treated was: left eye. Post Procedure Glaucoma Post-op medications included: Iopidine 0.5%. Post-op medications were administered at: 3:02 PM. Right Eye Post-op IOP: 8. Post-op IOP was taken at: 4:10 PM. Left Eye Post-op IOP: 6. Post-op IOP was taken at: 4:11 PM. General Details Pain Assessment: 0. Fall Risk Reassessment: age >65 (10 pts), medication regimen (5 pts). The following instructions were given after the procedure: Continue usual eye medications. Discharge Instructions reviewed and patient verbalized understanding: yes. Notes Ketorolac qid OU x 4 days Edgar Kaur MD OPHTHALMOLOGY PROCEDURES Final Result * Hepatitis C antibody, qualitative (07/05/2024 7:40 AM EDT) HCV NON-REACTIV E NON-REACTI VE [facility] Blood 07/05/2024 7:40 AM EDT 07/05/2024 7:45 AM EDT Poncho Thompson MD LAB BLOOD ORDERABLES F inal Result [address] [address] * (ABNORMAL) Lipid panel (07/05/2024 7:40 AM EDT) HDL 66 mg/dL [facility] Comment: Interpretation <40 mg/dL: Low HDL cholesterol (major risk factor for CHD) Greater than or equal to 60 mg/dL: High HDL cholesterol ( negative risk factor for CHD) HDL - cholesterol is affected by a number of factors, e.g. smoking, excerise, hormones, sex and age. CHOLESTEROL 208 0 - 240 mg/dL [facility] TRIGLYCERIDES 80 30 - 160 mg/dL [facility] LDL 126 50 - 129 mg/dL [facility] Comment: LDL levels in terms of risk for coronary heart disease: <100 mg/dL: Optimal 100-129 mg/dL: Near or above optimal 130-159 mg/dL: Borderline high 160-189 mg/dL: High >190 mg/dL: Very High CARDIAC RISK RATIO 3.2(L) 3.3 - 4.4 C [facility] Blood 07/05/2024 7:40 AM EDT 07/05/2024 7:44 AM EDT Poncho Thompson MD LAB BLOOD ORDERABLES F inal Result [address] [address] * COLONOSCOPY FOR RESULT ENTRY ONLY (10/19/2022) Colonoscopy done Historical Provider MD HEALTH MAINTENANCE Final Result * MAMMOGRAPHY FOR RESULT ENTRY ONLY (10/19/2022) Mammogram done Historical Provider HEALTH MAINTENANCE Final Result * BD DXA AXIAL (SPINE) WITH HIP (08/02/2022 8:56 AM EDT) Anatomical Region Laterality Modality Bone Density Bone Density 08/02/2022 8:50 AM EDT Impressions 08/04/2022 3:28 PM EDT Interpretation: Osteopenia. Narrative 08/04/2022 3:28 PM EDT Referred By: DARLENE TOBAR Scanner: KDW A with serial# of [id number] located at [address] [place] [address] Bone Density Scan (DXA) 08/02/22 Details of [...] - 08/04/2022 Referred By: DARLENE TOBAR Scanner: KDW A with serial# of [id number] located at [address] [place] [address] Bone Density Scan (DXA) 08/02/22 Details of [...] MD on 08/04/2022 15:28:02 IMPRESSION: Interpretation: Osteopenia. Darlene Tobar MD IMG BD BONE DENSITY DEXA Jenn l Result from Last 3 Months or Most Recently Relevant to Health Maintenance Insurance [facility] [facility] MEDICARE REPLACEMENT [facility] MEDIC[facility] REPLAC[facility] MEDIC[facility] REPLACEMENT [facility] MEDICARE REPLACEMENT [address] [place] [address] MEDICARE REPLACEMENT [facility] MEDICARE REPLACEMENT [facility] MEDICARE REPLACEMENT [facility] MEDICARE REPLACEMENT Care Teams Spout Worker Relationship Specialty Start Date End Date Poncho Thompson MD [address] [facility] [address] [facility], [address] [place] [address] [email or web address] PCP - General Internal Medicine 02/10/24 Additional Source Comments The information contained in this document represents components of the legal health record. It is not the complete legal health record.[facility]
--- OUTSIDE RECORDS SUMMARY | 2025-07-19 06:57 | XMS_ITS | Encounter Summary ---
Author Organization [facility] Address [address] [place] [address] Phone Care Team Providers Care Executive Business Coach Name Role Phone Paula Ritchie MD Primary Care Provider [phone] Darlene Tobar MD Primary Care Provider Jojo Christensen MD Primary Care Provider [phone] Darlene Tobar MD Primary Care Provider Darlene Tobar MD Primary Care Provider [phone] Poncho Thompson MD Primary Care Provider Encounter Details Date Type Department Care Team (Late st Contact Info) Description 11/18/2016 Procedure Pass [facility] [address] [place] [address] Social History Tobacco Use Types Packs/Day Years [...] Pulmonary, Allergy and Critical Care Medicine [address] [place] [phone] Emmanuel Calixto MD [address] [place] [address] [email or web address] 07/28/2025 1:30 PM EDT Nurse Only [facility] [address] [place] [address] Emmanuel Calixto MD [address] [place] [address] [email or web address] 08/04/2025 1:00 PM EDT Nurse Only [facility] [address] [place] [address] Emmanuel Calixto MD [address] [place] [address] 08/18/2025 1:00 PM EDT Nurse Only [facility] [address] [place] [address] Emmanuel Calixto MD [address] [place] [phone] 09/01/2025 1:00 PM EST Nurse Only [facility] [address] [place] [address] Emmanuel Calixto MD [address] [place] [address] 10/04/2025 9:30 AM EST Office Visit [facility] Neurom[facility] Service [address] [facility], 8th [place] [address] Edgar Bowers MD, PhD [address] [place] [address] [email or web address] 10/24/2025 8:00 AM EST Office Visit [facility] [place] [address] [place] [address] Edgar Kaur MD [address] [place] [address] [email or web address] 01/11/2026 9:30 AM EDT Office Visit [facility] [address] [facility], [address] [place] [address] Poncho Thompson MD [address] [facility], [address] [place] [address] [email or web address] documented as of this encounter Visit Diagnoses Not on filedocumented in this encounter Additional Health Concerns Assessment Noted Time PHQ-2 Depression Total Score: 0 09/19/20 16 9:07 AM EST documented as of this encounter Care Teams Executive Business Coach Relationship Specialty Start Date End Date Paula Ritchie MD [address] [place] [address] PCP - General 06/13/16 09/26/20 Darlene Tobar MD [address] [facility] [place] [address] PCP - General Internal Medicine 09/27/20 12/15/20 Jojo Christensen MD [address] [facility], [address] [place] [address] [email or web address] PCP - General Internal Medicine 12/16/2012/19 Darlene Tobar MD [address] [place] [address] [place] [address] PCP - General Internal Medicine 12/20/20 12/31/21 Darlene Tobar MD [facility] [place] [address] PCP - General Internal Medicine 01/01/22 02/09/24 Poncho Thompson MD [address] [place] [address], [address] [address] [email or web address] PCP - General Internal Medicine 02/10/24 documented as of this encounter Additional Source Comments The information contained in this document represents components of the legal health record. It is not the complete legal health record.[facility]
--- OUTSIDE RECORDS SUMMARY | 2025-07-19 06:57 | XMS_ITS | Encounter Summary ---
Author Organization [facility] Address [address] [place] [address] Phone Care Team Providers Care Warehouse Representative Name Role Phone TrancyngerPoncho MD Primary Care Provider Encounter Details Date Type Department Care Team (Late st Contact Info) Description 07/11/2024 Procedure Pass [facility] [place] [address] [facility], 6th [place] [address] Social History Tobacco Use Types Packs/Day Years [...] [facility] [address] [place] [address] Emmanuel Calixto MD [address] [place] [address] [email or web address] 07/28/2025 1:30 PM EDT Nurse Only [facility] [address] [place] [address] Emmanuel Calixto MD [address] [place] [address] [email or web address] 08/04/2025 1:00 PM EDT Nurse Only [facility] [address] [place] [address] Emmanuel Calixto MD [address] [place] [address] 08/18/2025 1:00 PM EDT Nurse Only [facility] [address] [place] [address] Emmanuel Calixto MD [address] [place] [address] [email or web address] 09/01/2025 1:00 PM EST Nurse Only [facility] [address] [place] [address] Emmanuel Calixto MD [address] [place] [address] [email or web address] 10/04/2025 9:30 AM EST Office Visit [facility] [address] [facility], 8th [place] [address] Edgar Bowers MD, PhD [address] [address] [email or web address] 10/24/2025 8:00 AM EST Office Visit [facility] [place] [address] [place] [address] Edgar Kaur MD [address] [place] [address] [email or web address] 01/11/2026 9:30 AM EDT Office Visit [facility] [address] [facility], [address] [place] [address] Poncho Thompson MD [address] [place] [address], [address] [address] [email or web address] documented as of this encounter Visit Diagnoses Not on filedocumented in this encounter Additional Health Concerns Assessment Noted Time PHQ-2 Depression Total Score: 0 05/04/20 24 11:49 AM EDT documented as of this encounter Care Teams Warehouse Representative Relationship Specialty Start Date End Date Poncho Thompson MD [address] [place] [address], [address] [address] [email or web address] PCP - General Internal Medicine 02/10/24 documented as of this encounter Additional Source Comments The information contained in this document represents components of the legal health record. It is not the complete legal health record.[facility]
--- OUTSIDE RECORDS SUMMARY | 2025-07-19 06:57 | XMS_ITS | Clinical Summary ---
Author Organization [facility] Address [address] [place] [address] Care Team Providers Care Heavy Duty Press Operator Name Role Phone Darlene Tobar Primary Care Provider [phone] Allergies Active Allergy Reactions Criticality Noted Date Comments Sulfamethoxazole-Trimethopri m 08/03/2018 Latex Shortness of breath,Rash High 05/12/2019 Mold 05/12/2019 Penicillins 08/03/2018 Medications albuterol 2.5 mg /3 mL (0.083 %) nebulizer solution Inhale 2.5 mg every 6 hours as needed. 6 Active ascorbic acid, vitamin C, (VITAMIN C) 1,000 mg tablet Take by mouth. Active cyanocobalamin 1,000 mcg tablet Take by mouth. Activ e estradioL (ESTRACE) 0.01 % (0.1 mg/gram) vaginal cream Insert 2 g into the vagina 2 (two) times a week. 0 Active estradioL (ESTRACE) 0.01 % (0.1 mg/gram) vaginal cream PLACE 2 G VAGINALLY 2 (TWO) TIMES A WEEK. 0 Active olopatadine 0.6 % spray,non-aeros ol Administer 1 spray into affected nostril(s). 7 Active pantoprazole (PROTONIX) 20 mg EC tablet Take 20 mg by mouth. 6 Active inhalational spacing device (AEROCHAMBER) each Inhale 2 each in the morning and 2 each in the evening. 2 Active fluticasone propionate (FLOVENT DISKUS) 50 mcg/actuation diskus inhaler Inhale 1 puff in the morning and 1 puff in the evening. Rinse mouth with water after use to reduce aftertaste and incidence of candidiasis. Do not swallow. Prime before first use and when inhaler has not been used for >5 days. Do not remove canister from the actuato. Active latanoprost (XALATAN) 0.005 % ophthalmic solution Administer 1 drop into both eyes nightly. Active calcium citrate-vitamin D2 250 mg-2.5 mcg (100 unit) per tablet Take 1 tablet by mouth in the morning and 1 tablet before bedtime. Active ketorolac (ACULAR) 0.5 % ophthalmic solution Administer 1 drop into the right eye in the morning and 1 drop before bedtime. Use in the procedure eye 2x a day for 5 days. 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 02/20/2022 Presbyopia 02/20/2022 Vitreous floaters, bilateral 02/20/2022 Family History Medical History Relation Comments Glaucoma Mother Glaucoma Mother's Brother Relation Status Comments Mother Mother's Brother Social History Tobacco Use Types Packs/Day Years Used Date Smoking Tobacco: Never Smokeless Tobacco: Never Comments Unknown Sex and Gender Information Value Date Recorded Sex Assigned at Not on file Legal Sex Female 1:37 AM EST Gender Identity Not on file Sexual Orientation Not on file Occupation Industry Job Start Date Job End Date Retired Not on file Not on file Not on file Plan of Treatment Upcoming Encounters Date Type Department Care Team (Late st Contact Info) Description 08/09/2025 8:00 AM EDT Office Visit [facility] Department of Ophthalmology [address] [place] [address] Ventura Kennedy MD [address] [place] [address] Health Maintenance Due Date Last Done Comments CT Colonography 1956 FIT-DNA (Cologuard) 1956 FIT 1956 FOBT 1956 Flex Sigmoidoscopy - 5y 1956 HIV Screening 1955 Medicare Annual Wellness (AWV) 1956 Hepatitis C Screening 1974 Pneumococcal Vaccine, 50+ Years (1 of 2 - PCV) 1975 Zoster Vaccines (1 of 2) 2006 Bone Density Screening 08/02/2024 08/02/2022 COVID-19 Vaccine (3 - season) 2025 06/05/2021, 05/15/2021 Influenza Vaccine (#1) 2025 09/11/2023, 2021 Breast Cancer Screening 03/18/2027 03/18/2025, 03/18 DTaP,Tdap,and Td Vaccines (2 - Td or Tdap) 03/18/2027 03/18/2017 Colonoscopy 10/19/2032 10/19/2022 Colorectal Cancer Screening 10/19/2032 Pap Smear Discontinued 03/19/2023, 04/18, 04/27/2020, Additional history exists HPV Vaccines Aged Out No longer eligi ble based on patient's age to complete this topic Hepatitis A Vaccines Aged Out No long er eligible based on patient's age to complete this topic Meningococcal Vaccine Aged Out No petr lauro eligible based on patient's age to complete this topic Insurance [employer] MANAGED MEDICARE [place]PO [place] Care Teams Heavy Duty Press Operator Relationship Specialty Start Date End Date Darlene Tobar [address] [place] [address] PCP - General 04/24/20
--- OUTSIDE RECORDS SUMMARY | 2025-07-19 06:57 | XMS_ITS | Encounter Summary ---
Author Organization [facility] Address [address] [place] [address] Phone Care Team Providers Care Golf Shoe Spike Assembler Name Role Phone Paula Ritchie MD Primary Care Provider [phone] Darlene Tobar MD Primary Care Provider Jojo Christensen MD Primary Care Provider [phone] Darlene Tobar MD Primary Care Provider Darlene Tobar MD Primary Care Provider [phone] Poncho Thompson MD Primary Care Provider Encounter Details Date Type Department Care Team (Late st Contact Info) Description 11/18/2016 Transcribe Orders [facility] [address] [place] [address] Nancy Maya [address] [place] [address] COX [email or web address] Social History Tobacco Use Types Packs/Day Years [...] Upcoming Encounters Date Type Department Care Team ([facility] st Contact Info) Description 07/21/2025 1:00 PM EDT Nurse Only [facility], Allergy and Critical Care Medicine [address] [place] [address] Emmanuel Calixto MD [address] [place] [address] 07/28/2025 1:30 PM EDT Nurse Only [facility], [facility]ergy [facility] Critical [facility] Medicine [address] [place] [address] Emmanuel Calixto MD [address] [place] [address] 08/04/2025 1:00 PM EDT Nurse Only [facility] [address] [place] [address] Emmanuel Calixto MD [address] [place] [address] 08/18/2025 1:00 PM EDT Nurse Only [facility] [address] [place] [address] Emmanuel Calixto MD [address] [place] [address] 09/01/2025 1:00 PM EST Nurse Only [facility], [facility] Critical [facility] Medicine [address] [place] [address] Emmanuel Calixto MD [address] [place] [address] 10/04/2025 9:30 AM EST Office Visit [facility] [address] [facility], 8th [place] [address] Edgar Bowers MD, PhD [address] [address] [email or web address] 10/24/2025 8:00 AM EST Office Visit [facility] [place] [address] [place] [address] Edgar Kaur MD [address] [place] [address] [email or web address] 01/11/2026 9:30 AM EDT Office Visit [facility] [address] [facility], [address] [place] [address] Poncho Thompson MD 52 [facility], [address] [address] [email or web address] documented as of this encounter Visit Diagnoses Not on filedocumented in this encounter Additional Health Concerns Assessment Noted Time PHQ-2 Depression Total Score: 0 09/19/20 16 9:07 AM EST documented as of this encounter Care Teams Golf Shoe Spike Assembler Relationship Specialty Start Date End Date Paula Ritchie MD [address] [place] [address] PCP - General 06/13/16 09/26/20 Darlene Tobar MD [facility] [place] [address] PCP - General Internal Medicine 09/27/20 12/15/20 Jojo Christensen MD [address] [facility], [address] [place] [address] [email or web address] PCP - General Internal Medicine 12/16/2012/19 Darlene Tobar MD [facility] [place] [address] PCP - General Internal Medicine 12/20/20 12/31/21 Darlene Tobar MD [facility] [place] [address] PCP - General Internal Medicine 01/01/22 02/09/24 Poncho Thompson MD [address] [place] [address], [place] [address] [email or web address] PCP - General Internal Medicine 02/10/24 documented as of this encounter Additional Source Comments The information contained in this document represents components of the legal health record. It is not the complete legal health record.[facility]
--- OUTSIDE RECORDS SUMMARY | 2025-07-19 06:57 | XMS_ITS | Encounter Summary ---
Author Organization [facility] Address [address] [place] [address] Phone Care Team Providers Care Diagrammer Name Role Phone Poncho Thompson MD Primary Care Provider Encounter Details Date Type Department Care Team (Late st Contact Info) Description 01/30/[address] [facility] [address] [place] [address] Edgar Kaur MD [address] [place] [address] [email or web address] Primary open angle glaucoma of both eyes, mild stage (Primary Dx) Social History Tobacco Use Types [...] Upcoming Encounters Date Type Department Care Team ([facility] st Contact Info) Description 07/21/2025 1:00 PM EDT Nurse Only [facility], Allergy [facility] Critical [facility] Medicine [address] [place] [address] Emmanuel Calixto MD [address] [place] [address] 07/28/2025 1:30 PM EDT Nurse Only [facility] Critical [facility] Medicine [address] [place] [address] Emmanuel Calixto MD [address] [place] [address] 08/04/2025 1:00 PM EDT Nurse Only [facility] [address] [place] [address] Emmanuel Calixto MD [address] [place] [address] 08/18/2025 1:00 PM EDT Nurse Only [facility] [address] [place] [address] Emmanuel Calixto MD [address] [place] [address] 09/01/2025 1:00 PM EST Nurse Only [facility] [address] [place] [address] Emmanuel Calixot MD [address] [place] [address] [email or web address] 10/04/2025 9:30 AM EST Office Visit [facility] Neuromuscular Service [address] 8th [place] [address] Edgar Bowers MD, PhD [address] [facility] [place] [address] [email or web address] 10/24/2025 8:00 AM EST Office Visit [facility] Glaucoma Friend [address] [place] [address] Edgar Kaur MD [address] [place] [address] [email or web address] 01/11/2026 9:30 AM EDT Office Visit [facility] Primary Care Associates [address] [place] [address], [address] [address] Poncho Thompson MD [address] [place] [address], [address] [address] [email or web address] documented as of this encounter Results * Laser Trabeculoplasty Selective - OU - Both Eyes (05/26/2025 4:11 PM EDT) Anatomical Region Laterality Modality Head Laser Room Other Narrative 05/26/2025 5:05 PM EDT Ruth Protocol Fall Risk Assessment: age >65 (10 [...] Edgar Kaur MD OPHTHALMOLOGY PROCEDURES Final Result documented in this encounter Visit Diagnoses Diagnosis Primary open angle glaucoma of both eyes, mild stage- Primary Primary open angle glaucoma of both eyes, mild stage documented in this encounter Additional Health Concerns Assessment Noted Time PHQ-2 Depression Total Score: 0 05/04/20 24 11:49 AM EDT documented as of this encounter Care Teams Diagrammer Relationship Specialty Start Date End Date Poncho Thompson MD [address] [place] [address], [place] [address] [email or web address] PCP - General Internal Medicine 02/10/24 documented as of this encounter Additional Source Comments The information contained in this document represents components of the legal health record. It is not the complete legal health record.[facility]
--- OUTSIDE RECORDS SUMMARY | 2025-07-19 06:57 | XMS_ITS | Encounter Summary ---
Author Organization [facility] Address [address] [place] [address] Phone Care Team Providers Care Grease Rack Worker Name Role Phone Paula Ritchie MD Primary Care Provider [phone] Darlene Tobar MD Primary Care Provider [phone] Jojo Christensen MD Primary Care Provider [phone] Darlene Tobar MD Primary Care Provider [phone] Darlene Tobar MD Primary Care Provider [phone] Poncho Thompson MD Primary Care Provider Reason for Referral * MRI/CAT Scan - Closed Specialty Diagnoses / Procedures Referred By Contac t Referred To Contact Radiology Diagnoses Microscopic hematuria Procedures CT 3D Reconstruction Abdomen and Pelvis Edgar Patel MD Phone: tel: fax: [email or web address] Referral ID Status Reason Start Date Expiration Date Visits Re quested Visits Authorized [id number] Closed 11/18/2016 11/18/2017 1 1 Encounter Details Date Type Department Care Team ([facility] st Contact Info) Description 11/18/2016 Ancillary Orders [facility] U[facility] [address] [facility] ASB[address] [place] [address] Edgar Patel MD [address] [place] [address] [email or web address] Microscopic hematuria Social History Tobacco Use Types Packs/Day Years [...] Upcoming Encounters Date Type Department Care Team ([facility] Contact Info) Description 07/21/2025 1:00 PM EDT Nurse Only [facility], Allergy [facility] Critical [facility] Medicine [address] [place] [address] Emmanuel Calixto MD [address] [place] [address] 07/28/2025 1:30 PM EDT Nurse Only [facility] [address] [place] [address] Emmanuel Calixto MD [address] [place] [address] 08/04/2025 1:00 PM EDT Nurse Only [facility] [address] [place] [address] Emmanuel Calixto MD [address] [place] [address] 08/18/2025 1:00 PM EDT Nurse Only [facility] [address] [place] [address] Emmanuel Calixto MD [address] [facility] [address] 2nd [place] [address] [email or web address] 09/01/2025 1:00 PM EST Nurse Only [facility] Pulmonary, Allergy and Critical Care Medicine [address] [place] [address] Emmanuel Calixto MD [address] [facility] [address] 2nd [place] [address] [email or web address] 10/04/2025 9:30 AM EST Office Visit [facility] [address] [facility], 8th [place] [address] Edgar Bowers MD, PhD [address] [address] [email or web address] 10/24/2025 8:00 AM EST Office Visit [facility] [place] [address] [place] [address] Edgar Kaur MD [address] [place] [address] [email or web address] 01/11/2026 9:30 AM EDT Office Visit [facility] [address] [place] [address], [address] [place] [address] Poncho Thompson MD [address] [place] [address], [address] [place] [address] [email or web address] documented as of this encounter Results * CT 3D Reconstruction Abdomen and Pelvis (11/18/2016 10:04 AM EST) Anatomical Region Laterality Modality Abdomen, Pelvis Computed Tomogra phy 11/18/2016 10:0 4 AM EST Impressions 11/18/2016 1:49 PM EST 1. 2 mm nonobstructing stone and simple cyst in the lower pole of the left kidney. 3. Indeterminate subcentimeter hypodense lesions in hepatic segment 6 and scattered throughout the left kidney, too small to characterize, but likely cysts. Narrative 11/18/2016 1:49 PM EST INDICATION: 61 years old Female ;+ HEMATURIA, MICROSCOPIC [SIGN/SX]; per E MR: Cystoscopy performed 10/21/2016 was reportedly normal. TECHNIQUE: CT scan of abdomen and pelvis was obtained before and after intravenous injection of 100 mL of Omnipaque 350 , 10 mg of IV furosemide / 250 cc of IV saline and enteric contrast (water) using the CT urography protocol. COMPARISON: None FINDINGS: Lower chest: Lung bases are clear save for minimal dependent atelectasis. There is no pleural or pericardial effusion. Liver: Indeterminate 5 mm hypodense lesion in the inferior tip of segment 6 (11:138). The liver is otherwise normal. Biliary system: Gallbladder is normal. No ductal dilatation. Pancreas: Normal. Spleen: Normal. Adrenal glands: Normal. Kidneys: Punctate 2 mm stone in the lower pole of the left kidney. 6 mm simple cyst in the lower pole of the left kidney. Other, at least 4, 3 to 4 mm hypodense lesions scattered throughout the left kidney are too small to characterize but also likely cysts. The right kidney is normal. There is no hydronephrosis bilaterally. Bowel: No focal wall thickening or dilatation of small and large bowel loops. Appendix is normal. There is fecalization of small bowel loops in the lower abdomen. Pelvic organs: Urinary bladder, uterus, and ovaries are normal. Mesentery, omentum, peritoneum: No nodularity or free fluid. Retroperitoneum: No mass or hematoma. Vasculature: Scattered calcifications. Aorta is normal in caliber. Portal vein is patent. Lymph nodes: No lymphadenopathy. Soft tissues and bones: No suspicious osseous lesions. 3D IMAGES: Volume rendered, maximum-intensity projection (MIP) with and without bone and curved planar images were performed on an independent dedicated workstation by a technologist in a 3D lab that is monitored by a physician to evaluate the collecting system, ureters, and bladder. The collecting systems are well-opacified and appear normal. The ureters systems are well-opacified and appear normal. No hydronephrosis or hydroureter. No urothelial abnormality, wall thickening, dilatation or stricture. The urinary bladder is distended and shows no thickening or masses. Small post void residual. Procedure Note Stephanie [place] MD - 11/20/2016 INDICATION: 61 years old Female ;+ HEMATURIA, MICROSCOPIC [SIGN/SX]; per E MR: Cystoscopy performed 10/21/2016 was reportedly normal. TECHNIQUE: CT scan of abdomen and pelvis was obtained before and after intravenous injection of 100 mL of Omnipaque 350 , 10 mg of IV furosemide / 250 cc of IV saline and enteric contrast (water) using the CT urography protocol. COMPARISON: None FINDINGS: Lower chest: Lung bases are clear save for minimal dependent atelectasis. There is no pleural or pericardial effusion. Liver: Indeterminate 5 mm hypodense lesion in the inferior tip of segment 6 (11:138). The liver is otherwise normal. Biliary system: Gallbladder is normal. No ductal dilatation. Pancreas: Normal. Spleen: Normal. Adrenal glands: Normal. Kidneys: Punctate 2 mm stone in the lower pole of the left kidney. 6 mm simple cyst in the lower pole of the left kidney. Other, at least 4, 3 to 4 mm hypodense lesions scattered throughout the left kidney are too small to characterize but also likely cysts. The right kidney is normal. There is no hydronephrosis bilaterally. Bowel: No focal wall thickening or dilatation of small and large bowel loops. Appendix is normal. There is fecalization of small bowel loops in the lower abdomen. Pelvic organs: Urinary bladder, uterus, and ovaries are normal. Mesentery, omentum, peritoneum: No nodularity or free fluid. Retroperitoneum: No mass or hematoma. Vasculature: Scattered calcifications. Aorta is normal in caliber. Portal vein is patent. Lymph nodes: No lymphadenopathy. Soft tissues and bones: No suspicious osseous lesions. 3D IMAGES: Volume rendered, maximum-intensity projection (MIP) with and without bone and curved planar images were performed on an independent dedicated workstation by a technologist in a 3D lab that is monitored by a physician to evaluate the collecting system, ureters, and bladder. The collecting systems are well-opacified and appear normal. The ureters systems are well-opacified and appear normal. No hydronephrosis or hydroureter. No urothelial abnormality, wall thickening, dilatation or stricture. The urinary bladder is distended and shows no thickening or masses. Small post void residual. IMPRESSION: 1. 2 mm nonobstructing stone and simple cyst in the lower pole of the left kidney. 3. Indeterminate subcentimeter hypodense lesions in hepatic segment 6 and scattered throughout the left kidney, too small to characterize, but likely cysts. us Edgar Patel MD IMG CT Final Resu lt documented in this encounter Visit Diagnoses Diagnosis Microscopic hematuria documented in this encounter Additional Health Concerns Assessment Noted Time PHQ-2 Depression Total Score: 0 09/19/20 16 9:07 AM EST documented as of this encounter Care Teams Grease Rack Worker Relationship Specialty Start Date End Date Paula Ritchie MD [address] [place] [address] PCP - General 06/13/16 09/26/20 Darlene Tobar MD [address] [place] [address] PCP - General Internal Medicine 09/27/20 12/15/20 Jojo Christensen MD [address] [facility], [address] [place] [address] [email or web address] PCP - General Internal Medicine 12/16/2012/19 Darlene Tobar MD [address] [place] [address] PCP - General Internal Medicine 12/20/20 12/31/21 Darlene Tobar MD [address] [place] [address] PCP - General Internal Medicine 01/01/22 02/09/24 Poncho Thompson MD [address] [facility], [address] [place] [address] [email or web address] PCP - General Internal Medicine 02/10/24 documented as of this encounter Additional Source Comments The information contained in this document represents components of the legal health record. It is not the complete legal health record.[facility]
--- OUTSIDE RECORDS SUMMARY | 2025-07-19 06:58 | XMS_ITS | Encounter Summary ---
Author Organization [facility] Address [address] [place] [address] Phone Care Team Providers Care Special Shopper Name Role Phone Paula Ritchie MD Primary Care Provider [phone] Darlene Tobar MD Primary Care Provider [phone] Jojo Christensen MD Primary Care Provider [phone] Darlene Tobar MD Primary Care Provider Darlene Tobar MD Primary Care Provider [phone] Poncho Thompson MD Primary Care Provider Encounter Details Date Type Department Care Team (Late st Contact Info) Description 10/07/2016 Transcribe Orders [facility] [address] [place] [address] [email or web address] [email or web address] Social History Tobacco Use Types Packs/Day Years [...] [facility] [address] [place] [address] Emmanuel Calixto MD [address] [place] [phone] [email or web address] 07/28/2025 1:30 PM EDT Nurse Only [facility] [address] [place] [address] Emmanuel Calixto MD [address] [place] [address] [email or web address] 08/04/2025 1:00 PM EDT Nurse Only [facility] [address] [place] [address] Emmanuel Calixto MD [address] [place] [address] [email or web address] 08/18/2025 1:00 PM EDT Nurse Only [facility] [address] [place] [address] Emmanuel Calixto MD [address] [place] [address] [email or web address] 09/01/2025 1:00 PM EST Nurse Only [facility] [address] [place] [address] Emmanuel Calixto MD [address] [place] [address] [email or web address] 10/04/2025 9:30 AM EST Office Visit [facility] Neurom[facility] Service [address] [facility], 8th [place] [address] Edgar Bowers MD, PhD 55 [facility] [place] [phone] [email or web address] 10/24/2025 8:00 AM EST Office Visit [facility] [place] [address] [place] [address] Edgar Kaur MD [address] [place] [address] [email or web address] 01/11/2026 9:30 AM EDT Office Visit [facility] [address] [place] [address], [address] [address] Poncho Thompson MD [address] [place] [address], [address] [address] [email or web address] documented as of this encounter Results * XR Chest Outside (No Interpretation) (10/07/2016 12:00 AM EST) Narrative JOSIAS - 10/07/2016 10:11 AM EST This study is for PACS storage only and not for interpretation. us Juan J Bo MD IMG OUTSIDE IMAGING W/OUT INTE RPRETATION Final Result PERCIPIO_H documented in this encounter Visit Diagnoses Not on filedocumented in this encounter Additional Health Concerns Assessment Noted Time PHQ-2 Depression Total Score: 0 09/19/20 16 9:07 AM EST documented as of this encounter Care Teams Special Shopper Relationship Specialty Start Date End Date Paula Ritchie MD [address] [place] [address] PCP - General 06/13/16 09/26/20 Darlene Tobar MD [facility] [place] [address] PCP - General Internal Medicine 09/27/20 12/15/20 Jojo Christensen MD [address] [facility], [address] [place] [address] [email or web address] PCP - General Internal Medicine 12/16/2012/19 Darlene Tobar MD [address] [place] [address] [place] [address] PCP - General Internal Medicine 12/20/20 12/31/21 Darlene Tobar MD [address] [place] [address] [place] [address] PCP - General Internal Medicine 01/01/22 02/09/24 Poncho Thompson MD [address] [facility], [address] [place] [address] [email or web address] PCP - General Internal Medicine 02/10/24 documented as of this encounter Additional Source Comments The information contained in this document represents components of the legal health record. It is not the complete legal health record.[facility]
[2025-07-19 07:09] VITALS: BP 154/78; PULSE 100; RESP 18; O2SAT 95
--- NOTE | 2025-07-19 07:11 | ED_ITS ---
HPI - URI/Sore Throat General Chief Complaint: Upper Respiratory Symptoms Stated Complaint: Flu Like Time Seen by Provider: 07/19/25 06:47 Source: patient Mode of arrival: ambulatory Limitations: no limitations History of Present Illness ED Provider: HPI Narrative: 69-year-old woman with a history of mild asthma, does have a rescue inhaler has been coughing for the past 3 days, no nausea no vomiting, states when she coughs it hurts midsternal, nonsmoker nondrinker, otherwise healthy. MD elicited complaint: cough Pertinent past history: asthma Related Data Home Medications ?Medication ?Instructions ?Recorded ?Confirmed estradiol 0.01% (0.1 mg/gram) 2 g vaginal DAILY 10/29/23 vaginal cream latanoprost 0.005 % eye drops 1 drp ophthalmic (eye) B EDTIME 10/29/23 10/29/23 levalbuterol tartrate 45 inhalation 10/29/23 10/29/23 mcg/actuation aerosol inhaler Previous Rx's ?Medication ?Instructions ?Recorded fluticasone propionate 110 1 puff inhalation BID #12 g betzaida 10/29/23 mcg/actuation HFA aerosol inhaler (Flovent HFA) ibuprofen 600 mg tablet 600 mg PO Q8H PRN pain #40 t abs 05/28/24 azithromycin 250 mg tablet 250 mg PO DAILY #6 tabs 11/12 prednisone 20 mg tablet 40 mg (2 x 20 mg) PO DAILY 5 days 07/19/25 #10 tabs Allergies Allergy/AdvReac Type Severity Reaction Status Date / Time diphenhydramine (From Allergy Unknown ANXIETY Verified 07/19/25 06:24 BENADRYL) metronidazole (From FLAGYL) Allergy Unknown ALTERED Verified 07/19/25 06:24 MENTAL, FAINT, NAUSEA, DIZZY penicillin V Allergy Unknown Nausea Verified 07/19/25 06:24 Penicillins (PENICILLINS) Allergy Unknown NAUSEA Verified 07/19/25 06:24 Sulfa (Sulfonamide Allergy Unknown unknown Verified 07/19/25 06:24 Antibiotics) sulfamethoxazole (From Allergy Unknown HIVES Verified 07/19/25 06:24 BACTRIM) trimethoprim (From BACTRIM) Allergy Unknown HIVES Verified 07/19/25 06:24 Review of Systems Constitutional: Constitutional: Reports as per [facility] Past Medical History Medical History Vitamin D deficiency Hyperglycemia Microscopic hematuria Chronic cough Acute bronchitis Dysuria Annual physical exam Anxiety Surgical History History of colposcopy H/O colonoscopy No pertinent past surgical history Family History Family History Father No problems noted. Mother No problems noted. Social History Social History Housing: House Patient Tobacco Use Status: Never used Tobacco Smoked in Last 30 Days: No e-Cigarette/Vaping Use: Never Used Use of substances other than those prescribed or required for medical reasons: No Advance Directives: No Advance Directives Information Provided: Yes Do you have a plan to hurt others: No Plan Current occupational status: retired Cognitive needs: No Hearing needs: No Vision needs: Yes Physical Exam Vital Signs: Vital Signs: Last Vital Signs Temp 100.1 F 07/19/25 06:22 Pulse 100 07/19/25 07:09 Resp 18 07/19/25 07:09 BP 154/78 H 07/19/25 07:09 Pulse Ox 95 07/19/25 07:09 O2 Del Method Room Air 07/19/25 07:09 BMI result Body Mass Index 32.3 Const: Other: General: ?Appears of stated age ? uvula midline, no tonsillar exudates ? Neck: Supple, no LAD ? ?CV: RRR, no obvious murmurs appreciated ? ?Resp: ?No wheezing rales rhonchi no stridor moving air well ? ?MSK: FROM, strength 5/5 all extremities ? Skin: Warm, dry, intact, ? ?Neuro: ?Alert and oriented x3, moving upper and lower extremities symmetrically, no obvious facial asymmetry noted, Medical Decision Making Medical Decision Making MDM Narrative: 7:18 AM 07/19/2025 (Dr. Leon Gonzales): Overall well-appearing patient without any evidence for ongoing ENT infections, TMs are clear, uvula midline, n o tonsillar exudates, she is not wheezing no rhonchi no rales no obvious consolidations to suspect underlying pneumonia, likely bronchitic, did not elicit sick contacts either Chest x-ray without any obvious consolidations or other considerations, anticipating discharge with symptomatic control and as his she has a history of asthma likely a Z-Navdeep 7:48 AM 07/19/2025 (Dr. Leon Gonzales): Patient we will hold off on taking steroids in the ER, thinks she would like to speak to her PCP, but she is interested in taking azithromycin Differential Diagnosis Differential Diagnoses: The differential diagnosis associated with the presentation includes (Asthma exacerbation, bronchitis, pneumonia, CHF, PE) Admission/Observation Consideration of admission/observation: Escalation of care including admission/observation considered Lab Data MDM Lab Attestation statement: I reviewed the patient's lab results. Labs: Lab Results 07/19/25 Range/Units 06:38 COVID-19 (CHAS) Negative (Negative) COVID-19 Clin Com See Note Influenza Type A (MAULIK) Negative (Negative) Influenza Type B (MAULIK) Negative (Negative) Influenza A & B Note See Note S. pyogenes GrpA MAULIK Negative (Negative) Prescription Management I considered prescription management with: Antibiotic Discharge Plan Discharge Clinical Impression: Bronchitis Additional Instructions: Viral swab negative, chest x-ray without obvious pneumonia, clinically you have bronchitis, as you have history of asthma you can take steroids we will help you with a cough and breathing, as well as azithromycin that is an antibiotic which I prescribe in bronchitis as azithromycin has antibacterial but also inflammatory properties and will help you as well Follow up with the PCP any other issues concerns come back to the ER Prescriptions: New azithromycin 250 mg tablet 250 mg PO DAILY Qty: 6 0RF Rx Instructions: 250 mg orally For 250 mg dose pack: take 500 mg today (day 1), then 250 mg for 4 days (days 2-5); prednisone 20 mg tablet 40 mg PO DAILY 5 Days Qty: 10 0RF No Action levalbuterol tartrate 45 mcg/actuation HFA aerosol inhaler inhalation estradiol 0.01 % (0.1 mg/gram) cream 2 g vaginal DAILY latanoprost 0.005 % drops 1 drp ophthalmic (eye) BEDTIME fluticasone propionate [Flovent HFA] 110 mcg/actuation HFA aerosol inhaler 1 puff inhalation BID Qty: 12 0RF ibuprofen 600 mg tablet 600 mg PO Q8H PRN (Reason: pain) Qty: 40 0RF Print Language: Norwegian
[2025-07-19 07:20] LABS: COVID-19 Test Negative (Negative); IDNOW Serial# 55D5AD1C; IDNOW Serial# 58CA691E; Influenza B2 Negative (Negative)
[2025-07-19 07:21] LABS: IDNOW Serial# 08D9AD1C; Strep A Nucleic Acid Negative (Negative)
--- NOTE | 2025-07-19 07:37 | PC.NURSE ---
Patient presents to ED c/o cough, sore throat that started on thursday Patient reports taking covid test thursday and it was negative O2 95% RA denies SOB Patient seen by provider Patient prescribed bensonatate and dexamethasone, patient refusing medications at this time as she wants to check with her doctor if she can take them Provider aware
[2025-07-19 07:55] VITALS: BP 154/78; PULSE 100; RESP 18; TEMP 37.8; O2SAT 95
--- NOTE | 2025-07-19 08:04 | PC.NURSE ---
Patient left ED without discharge paperwork
== END 2025-07-19 08:05 | disposition home or self-care (01) ==
PROVIDERS: Emergency Provider Emergency Medicine
DX: J40 Bronchitis, not specified as acute or chronic (principal); R05.9 Cough, unspecified; Z03.818 Encounter for observation for suspected exposure to other biological agents ruled out
CPT/HCPCS: 71045; 87502; 87635; 87651; 99283; 99285

== ENCOUNTER → 2025-07-19 06:53 | Outpatient (BNV) | payer MEDICARE, SELFPAY | PROVIDERS: Emergency Provider Emergency Medicine; Visit Provider Radiology Diagnostic Radiology | DX: R05.9 Cough, unspecified (principal); R06.02 Shortness of breath | CPT/HCPCS: 71045 ==

== ENCOUNTER 2025-07-24 13:09 | Outpatient (AMB) | payer MEDICARE, SELFPAY ==
[2025-07-24 14:15] VITALS: BP 138/84; PULSE 105; TEMP 37.9; O2SAT 98; BMI 31.5
--- NOTE | 2025-07-24 14:15 | AM.OFFWIN_ITS ---
Intake Vital Signs 07/24/25 14:15 Height 5 ft 6 in Weight 195 lb BMI 31.5 BP 138/84 Blood Pressure Location Lt brachial Position Sitting Pulse 105 H Pulse Source Pulse Oximeter Temp 100.2 F Temp Source Oral Pulse Oximetry (%) 98 Oxygen Delivery Method Room Air Intake Visit Reasons: EP Fever 2wks, cough, 10lb weightloss(car) Patient Tobacco Use Status: Never used Tobacco Allergies diphenhydramine (From BENADRYL) Allergy (Unknown, Verified 07/24/25 14:22) ANXIETY metronidazole (From FLAGYL) Allergy (Unknown, Verified 07/24/25 14:22) ALTERED MENTAL, FAINT, NAUSEA, DIZZY penicillin V Allergy (Unknown, Verified 07/24/25 14:22) Nausea Penicillins (PENICILLINS) Allergy (Unknown, Verified 07/24/25 14:22) NAUSEA Sulfa (Sulfonamide Antibiotics) Allergy (Unknown, Verified 07/24/25 14:22) unknown sulfamethoxazole (From BACTRIM) Allergy (Unknown, Verified 07/24/25 14:22) HIVES trimethoprim (From BACTRIM) Allergy (Unknown, Verified 07/24/25 14:22) HIVES HPI HPI Comments History of Present Illness Details 69 y/o Female patient who presents to [facility] walk in clinic with c/o Cough, Body aches, Fatigue, Subjective fevers, chills, poor Appetite and weight loss. Pt was seen and evaluated at [facility] on 07/19 for similar problems and she was diagnosed with Acute Bronchitis. Chest Xray and Serology were negative. Pt discharged home on Prednisone and Azithromycin. 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 Pt frustrated that no one can find out what is wrong with her. 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 She does use Flovent BID for her Asthma. [facility] Medical History (Updated 07/24/25 @ 15:10 by Ayanna Kelley NP) Acute respiratory disease Vitamin D deficiency Hyperglycemia Microscopic hematuria Chronic cough Acute bronchitis Dysuria Annual physical exam Anxiety Surgical History History of colposcopy H/O colonoscopy No pertinent past surgical history Family History Father No problems noted. Mother No problems noted. Social History Housing: House Patient Tobacco Use Status: Never used Tobacco e-Cigarette/Vaping Use: Never Used Current occupational status: retired Cognitive needs: No Hearing needs: No Vision needs: Yes Review of Systems Const All systems reviewed & are unremarkable except as noted in HPI and below Physical Exam Vital Signs: Last Vital Signs Temp 100.2 F 07/24/25 14:15 Pulse 105 H 07/24/25 14:15 BP 138/84 07/24/25 14:15 Pulse Ox 98 07/24/25 14:15 Oxygen Delivery Method Room Air 07/24/25 14:15 BMI result Body Mass Index 31.5 Const General: no acute distress Nutritional Appearance: overweight Orientation/consciousness: patient oriented x3 Resp Effort & Inspection: normal respiratory effort, able to speak in complete sentences, no audible wheezes and Actively coughing Auscultation: no crackles, no rales, no rhonchi and wheezes scattered wheezes Cardio Heart sounds: S1 normal heart sound present and S2 normal heart sound present Neuro General: patient oriented x3 Assessment & Plan Assessment & Plan (1) Acute respiratory disease: Code(s): J06.9 - Acute upper respiratory infection, unspecified Plan: Ordered another Resp Panel per request. Encouraged Patient to take Azithromycin as directed - since it has antibacterial and also inflammatory properties. Rest and hydrate with warm fluids. Orders: Orders Resp Pathogen Panel - [facility] Today J06.9 - Acute upper respiratory infection, unspecified Coding Level of Care Code Est Pt Level 4 (95477) Diagnoses Acute respiratory disease J06.9 Time Spent (min) 20
--- NOTE | 2025-07-24 14:18 | MHC.OFFWIV ---
Intake Vital Signs 07/24/25 14:15 Height 5 ft 6 in Weight 195 lb BMI 31.5 BP 138/84 Blood Pressure Location Lt brachial Position Sitting Pulse 105 H Pulse Source Pulse Oximeter Temp 100.2 F Temp Source Oral Pulse Oximetry (%) 98 Oxygen Delivery Method Room Air Intake Visit Reasons: EP Fever 2wks, cough, 10lb weightloss(car) Intake Note: pt presents with ongoing fever, cough SOB, loss of smell, lack of appetite for 2 weeks. pt reports wt loss; 204 lbs on 07/16 and down to 193 lbs this morning at home Patient Tobacco Use Status: Never used Tobacco Allergies diphenhydramine (From BENADRYL) Allergy (Unknown, Verified 07/24/25 14:22) ANXIETY metronidazole (From FLAGYL) Allergy (Unknown, Verified 07/24/25 14:22) ALTERED MENTAL, FAINT, NAUSEA, DIZZY penicillin V Allergy (Unknown, Verified 07/24/25 14:22) Nausea Penicillins (PENICILLINS) Allergy (Unknown, Verified 07/24/25 14:22) NAUSEA Sulfa (Sulfonamide Antibiotics) Allergy (Unknown, Verified 07/24/25 14:22) unknown sulfamethoxazole (From BACTRIM) Allergy (Unknown, Verified 07/24/25 14:22) HIVES trimethoprim (From BACTRIM) Allergy (Unknown, Verified 07/24/25 14:22) HIVES Do you need a note to return to daycare/school/sports/work: No PFSH Medical History Vitamin D deficiency Hyperglycemia Microscopic hematuria Chronic cough Acute bronchitis Dysuria Annual physical exam Anxiety Surgical History History of colposcopy H/O colonoscopy No pertinent past surgical history Family History Father No problems noted. Mother No problems noted. Social History Housing: House Patient Tobacco Use Status: Never used Tobacco e-Cigarette/Vaping Use: Never Used Current occupational status: retired Cognitive needs: No Hearing needs: No Vision needs: Yes Coding
--- OUTSIDE RECORDS SUMMARY | 2025-07-24 15:33 | XMS_ITS | Encounter Summary ---
Author Organization [facility] Address [address] [place] [address] Phone Care Team Providers Care Roofing Superintendent Name Role Phone Darlene Tobar MD Primary Care Provider [phone] Poncho Thompson MD Primary Care Provider Encounter Details Date Type Department Care Team (Late Contact Info) Description 03/31/2022 Transcribe Orders [facility] [address] [place] [address] Unknown, Unknown, Social History Tobacco Use Types [...] Department Care Team (Late Contact Info) Description 07/28/2025 1:30 PM EDT Nurse Only [facility] [address] [place], [place] [id number] Emmanuel Calixto MD [address] [id number] [email or web address] 08/04/2025 1:00 PM EDT Nurse Only [facility] [address] [place] [address] Emmanuel Calixto MD [address] [place] [phone] [email or web address] 08/18/2025 1:00 PM EDT Nurse Only [facility] [address] [place] [address] Emmanuel Calixto MD [address] [place] [address] [email or web address] 09/01/2025 1:00 PM EST Nurse Only [facility] [address] [place] [address] Emmanuel Calixto MD [address] [place] [address] [email or web address] 10/04/2025 9:30 AM EST Office Visit [facility] Neu[facility] Service [address] [facility], 8th [place] [address] Edgar Bowers MD, PhD [address] [place] [address] [email or web address] 10/24/2025 8:00 AM EST Office Visit [facility] [place] [address] [place] [address] Edgar Kaur MD [address] [place] [address] [email or web address] 01/11/2026 9:30 AM EDT Office Visit [facility] [address] [facility], [address] [place] [address] Poncho Thompson MD [address] [facility], [address] [place] [address] [email or web address] documented as of this encounter Visit Diagnoses Not on filedocumented in this encounter Additional Health Concerns Assessment Noted Time PHQ-2 Depression Total Score: 0 04/27/20 20 10:35 AM EDT documented as of this encounter Care Teams Roofing Superintendent Relationship Specialty Start Date End Date Darlene Tobar MD [address] [facility] [place] [address] PCP - General Internal Medicine 01/01/22 02/09/24 Poncho Thompson MD [address] [facility], [address] [place] [address] [email or web address] PCP - General Internal Medicine 02/10/24 documented as of this encounter Additional Source Comments The information contained in this document represents components of the legal health record. It is not the complete legal health record.[facility]
--- OUTSIDE RECORDS SUMMARY | 2025-07-24 15:33 | XMS_ITS | Encounter Summary ---
Author Organization [facility] Address [address] [place] [address] Phone Care Team Providers Care Signal Operator Name Role Phone Darlene Tobar MD Primary Care Provider [phone] Poncho Thompson MD Primary Care Provider Encounter Details Date Type Department Care Team (Late st Contact Info) Description 07/29/2022 Ancillary Orders [facility] Bone Density, [address] [place] [address] Darlene Tobar MD [address] [place] [address] [place] [address] Asymptomatic menopausal state Social History Tobacco Use [...] Medicine [address] [place] [address] Emmanuel Calitxo MD [address] [place] [address] [email or web address] 08/04/2025 1:00 PM EDT Nurse Only [facility] [address] [place] [address] Emmanuel Calixto MD [address] [place] [address] [email or web address] 08/18/2025 1:00 PM EDT Nurse Only [facility] [address] [place] [address] Emmanuel Calixto MD [address] [place] [address] [email or web address] 09/01/2025 1:00 PM EST Nurse Only [facility] [address] [place] [address] Emmanuel Calixto MD [address] [place] [address] 10/04/2025 9:30 AM EST Office Visit [facility] Neuromuscular Service [address] [facility], 8th [place] [address] Edgar Bowers MD, PhD [address] [address] [email or web address] 10/24/2025 8:00 AM EST Office Visit [facility] [place] [address] [place] [address] Edgar Kaur MD [address] [place] [phone] [email or web address] 01/11/2026 9:30 AM EDT Office Visit [facility] [address] [facility], [address] [place], [place] [phone] Poncho Thompson MD [address] [facility], [address] [place] [address] [email or web address] documented as of this encounter Results * BD DXA AXIAL (SPINE) WITH HIP (08/02/2022 8:56 AM EDT) Anatomical Region Laterality Modality Bone Density Bone Density 08/02/2022 8:50 AM EDT Impressions 08/04/2022 3:28 PM EDT Interpretation: Osteopenia. Narrative 08/04/2022 3:28 PM EDT Referred By: DARLENE TOBAR Scanner: [employer] A with serial# of [id number] located at [address] [place] [address] Bone Density Scan (DXA) 08/02/22 Details of [...] - 08/04/2022 Referred By: DARLENE TOBAR Scanner: [employer] with serial# of [id number] located at [address] [place] [address] Bone Density Scan (DXA) 08/02/22 Details of [...] documented as of this encounter Care Teams Signal Operator Relationship Specialty Start Date End Date Darlene Tobar MD [address] [facility] [place] [address] PCP - General Internal Medicine 01/01/22 02/09/24 Poncho Thompson MD [address] [place] [address], [address] [place] [address] (work) [email or web address] PCP - General Internal Medicine 02/10/24 documented as of this encounter Additional Source Comments The information contained in this document represents components of the legal health record. It is not the complete legal health record.[facility]
--- OUTSIDE RECORDS SUMMARY | 2025-07-24 15:33 | XMS_ITS | Encounter Summary ---
Author Organization [facility] Address [address] [place] [phone] Care Team Providers Care Marine Mammal Trainer Name Role Phone Obtain, Unable To Primary Care Provider Unavaila ble Encounter Details Date Type Department Care Team (Late st Contact Info) Description 07/01/2018 Scanned Document Sleep Medicine Program at [address] [place] [address] Ayanna Pantoja MD [address] [place] [phone] Social History Tobacco Use Types Packs/Day [...] on filedocumented in this encounter Care Teams Marine Mammal Trainer Relationship Specialty Start Date End Date Obtain, Unable To PCP - General 08/02/18 documented as of this encounter
--- OUTSIDE RECORDS SUMMARY | 2025-07-24 15:33 | XMS_ITS | Patient Health Record ---
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
--- OUTSIDE RECORDS SUMMARY | 2025-07-24 15:33 | XMS_ITS | Encounter Summary ---
Author Organization [facility] Address [address] [place] [address] Phone Care Team Providers Care Hooker Machine Tender Name Role Phone Darlene Tobar MD Primary Care Provider [phone] Poncho Thompson MD Primary Care Provider Encounter Details Date Type Department Care Team (Late st Contact Info) Description 10/21/[address], Christopher [address] [facility], 2nd Floor, [address] [place] [address] Social History Tobacco Use Types Packs/Day Years [...] Care Team (Late st Contact Info) Description 07/28/2025 1:30 PM EDT Nurse Only [facility] Pulmonary, Allergy and Critical Care Medicine [address] [place] [address] Emmanuel Calixto MD [address] [place] [address] [email or web address] 08/04/2025 1:00 PM EDT Nurse Only [facility] Pulmonary, Allergy and Critical Care Medicine [address] [place] [address] Emmanuel Calixto MD [address] [place] [address] [email or web address] 08/18/2025 1:00 PM EDT Nurse Only [facility] Pulmonary, Allergy and Critical Care Medicine [address] [place] [address] Emmanuel Calixto MD [address] [place] [address] [email or web address] 09/01/2025 1:00 PM EST Nurse Only [facility] Pulmonary, Allergy and Critical Care Medicine [address] [place] [address] Emmanuel Calixto MD [address] [place] [address] 10/04/2025 9:30 AM EST Office Visit [facility] Neuromuscular Service [address] [facility], 8th [place] [address] Edgar Bowers MD, PhD [address] [address] [email or web address] 10/24/2025 8:00 AM EST Office Visit [facility] [address] [place] [address] Edgar Kaur MD [address] [place] [address] [email or web address] 01/11/2026 9:30 AM EDT Office Visit [facility] [address] [facility], [address] [place] [address] Poncho Thompson MD [address] [facility], [address] [place] [address] [email or web address] documented as of this encounter Visit Diagnoses Not on filedocumented in this encounter Additional Health Concerns Assessment Noted Time PHQ-2 Depression Total Score: 0 05/04/20 24 11:49 AM EDT documented as of this encounter Care Teams Hooker Machine Tender Relationship Specialty Start Date End Date Darlene Tobar MD [address] [facility] [place] [address] PCP - General Internal Medicine 01/01/22 02/09/24 Poncho Thompson MD [address] [facility], [facility] [address] [place] [address] [email or web address] PCP - General Internal Medicine 02/10/24 documented as of this encounter Additional Source Comments The information contained in this document represents components of the legal health record. It is not the complete legal health record.[facility]
--- OUTSIDE RECORDS SUMMARY | 2025-07-24 15:33 | XMS_ITS | Encounter Summary ---
Author Organization [facility] Address [address] [place] [address] Phone Care Team Providers Care Antique Clocks Repairer Name Role Phone Darlene Tobar MD Primary Care Provider [phone] Poncho Thompson MD Primary Care Provider Encounter Details Date Type Department Care Team (Late Contact Info) Description 01/28/[address], [facility] [place] [address] [facility], [address] [place], [place] [id number] Social History Tobacco Use Types Packs/Day Years [...] Pulmonary, Allergy and Critical Care Medicine 10 [place], [place] [phone] Emmanuel Calixto MD [address] [address] [email or web address] 08/04/2025 1:00 PM EDT Nurse Only [facility] Pulmonary, Allergy and Critical Care Medicine 10 [place] [address] Emmanuel Calixto MD [address] [place] [address] [email or web address] 08/18/2025 1:00 PM EDT Nurse Only [facility] Pulmonary, Allergy and Critical Care Medicine 10 [place], [place] [phone] Emmanuel Calixto MD [address] [place] [address] 09/01/2025 1:00 PM EST Nurse Only [facility] Pulmonary, Allergy and Critical Care Medicine [address] [place] [address] Emmanuel Calixto MD [address] [place] [address] [email or web address] 10/04/2025 9:30 AM EST Office Visit [facility] Neuromuscular Service [address] [facility], 8th [place] [address] Edgar Bowers MD, PhD [address] [place] [address] [email or web address] 10/24/2025 8:00 AM EST Office Visit [facility] [place] [address] [place] [address] Edgar Kaur MD [address] [place] [address] [email or web address] 01/11/2026 9:30 AM EDT Office Visit [facility] Associates [address] [facility], [address] [place] [address] Poncho Thompson MD [address] [facility], [address] [place] [address] [email or web address] documented as of this encounter Visit Diagnoses Not on filedocumented in this encounter Additional Health Concerns Assessment Noted Time PHQ-2 Depression Total Score: 0 04/27/20 20 10:35 AM EDT documented as of this encounter Care Teams Antique Clocks Repairer Relationship Specialty Start Date End Date Darlene Tobar MD [address] [facility] [place] [address] PCP - General Internal Medicine 01/01/22 02/09/24 Poncho Thompson MD [address] [facility], [address] [place] [address] [email or web address] PCP - General Internal Medicine 02/10/24 documented as of this encounter Additional Source Comments The information contained in this document represents components of the legal health record. It is not the complete legal health record.[facility]
--- OUTSIDE RECORDS SUMMARY | 2025-07-24 15:33 | XMS_ITS | Encounter Summary ---
Author Organization [facility] Address [address] [address] [address] [place] [address] Phone Care Team Providers Care Sr Account Executive Name Role Phone Paula Ritchie MD Primary Care Provider [phone] Darlene Tobar MD Primary Care Provider Jojo Christensen MD Primary Care Provider [phone] Darlene Tobar MD Primary Care Provider Darlene Tobar MD Primary Care Provider [phone] Poncho Thompson MD Primary Care Provider Encounter Details Date Type Department Care Team (Late st Contact Info) Description 05/10/2020 Transcribe Orders [facility] [address] [address] Ariel Sanders [address] [place] [address] [email or web address] Social History Tobacco Use Types Packs/Day Years [...] Upcoming Encounters Date Type Department Care Team ([facility] st Contact Info) Description 07/28/2025 1:30 PM EDT Nurse Only [facility] Pulmonary, Allergy and Critical Care Medicine [address] [place] [address] Emmanuel Calixto MD [address] [place] [address] 08/04/2025 1:00 PM EDT Nurse Only [facility] Pulmonary, Allergy and Critical Care Medicine [address] [place] [address] Emmanuel Calixto MD [address] [place] [address] 08/18/2025 1:00 PM EDT Nurse Only [facility] Pulmonary, Allergy and Critical Care Medicine [address] [place] [address] Emmanuel Calixto MD [address] [place] [address] 09/01/2025 1:00 PM EST Nurse Only [facility] Pulmonary, Allergy and Critical Care Medicine [address] [place] [address] Emmanuel Calixto MD [address] [place] [address] 10/04/2025 9:30 AM EST Office Visit [facility] [address] [facility], 8th [place] [address] Edgar Bowers MD, PhD [address] [place] [address] [email or web address] 10/24/2025 8:00 AM EST Office Visit [facility] [place] [address] [facility] [place] [address] Edgar Kaur MD [address] [place] [address] [email or web address] 01/11/2026 9:30 AM EDT Office Visit [facility] [address] [facility], [address] [place] [address] Poncho Thompson MD [address] [facility], [address] [place] [address] [email or web address] documented as of this encounter Results * Mammogram Outside (No Interpretation) (05/15/2020 9:52 AM EDT) Narrative [facility] - 05/15/2020 9:52 AM EDT This study is for PACS storage only and not for interpretation. Paula Ritchie MD IMG OUTSIDE IMAGING W/OUT INTERPRETATION Final Result Performing Organization Address [facility] Co de Phone Number [email or web address] * Mammogram Outside (No Interpretation) (05/15/2020 9:52 AM EDT) Narrative [facility] - 05/15/2020 9:52 AM EDT This study is for PACS storage only and not for interpretation. Paula Ritchie MD IMG OUTSIDE IMAGING W/OUT INTERPRETATION Final Result [facility] * Mammogram Outside (No Interpretation) (05/15/2020 9:52 AM EDT) Narrative [facility] - 05/15/2020 9:52 AM EDT This study is for PACS storage only and not for interpretation. us Paula Ritchie MD IMG OUTSIDE IMAGING W/OUT INTERPRETATION Final Result [email or web address] * Mammogram Outside (No Interpretation) (05/15/2020 9:52 AM EDT) Narrative [facility] - 05/15/2020 9:52 AM EDT This study is for PACS storage only and not for interpretation. Paula Ritchie MD IMG OUTSIDE IMAGING W/OUT INTERPRETATION Final Result [email or web address] documented in this encounter Visit Diagnoses Not on filedocumented in this encounter Additional Health Concerns Assessment Noted Time PHQ-2 Depression Total Score: 0 04/27/20 20 10:35 AM EDT documented as of this encounter Care Teams Sr Account Executive Relationship Specialty Start Date End Date Paula Ritchie MD [address] [place] [address] PCP - General 06/13/16 09/26/20 Darlene Tobar MD [address] [facility] [place] [address] PCP - General Internal Medicine 09/27/20 12/15/20 Jojo Christensen MD [address] [facility], [address] [place] [address] [email or web address] PCP - General Internal Medicine 12/16/2012/19 Darlene Tobar MD [address] [facility] [place] [address] PCP - General Internal Medicine 12/20/20 12/31/21 Darlene Tobar MD [facility] [place] [address] PCP - General Internal Medicine 01/01/22 02/09/24 Poncho Thompson MD [address] [place] [address], [address] [place] [address] [email or web address] PCP - General Internal Medicine 02/10/24 documented as of this encounter Additional Source Comments The information contained in this document represents components of the legal health record. It is not the complete legal health record.[facility]
--- OUTSIDE RECORDS SUMMARY | 2025-07-24 15:33 | XMS_ITS | Encounter Summary ---
Author Organization [facility] Address [address] [place] [address] Phone Care Team Providers Care Golf Club Weigher Name Role Phone AnalisacyngerPoncho MD Primary Care Provider Encounter Details Date Type Department Care Team (Late st Contact Info) Description 05/04/2024 Procedure Pass [facility] Scan - [address] [address] Social History Tobacco Use Types Packs/Day Years [...] [facility], Allergy and Critical Care Medicine [address] [place] [address] Emmanuel Calixto MD [address] [place] [address] [email or web address] 08/04/2025 1:00 PM EDT Nurse Only [facility] Pulmonary, Allergy and Critical Care Medicine [address] [place] [address] Emmanuel Calixto MD [address] [place] [address] [email or web address] 08/18/2025 1:00 PM EDT Nurse Only [facility] Pulmonary, Allergy and Critical Care Medicine [address] [place] [address] Emmanuel Calixto MD [address] [place] [address] [email or web address] 09/01/2025 1:00 PM EST Nurse Only [facility] Pul[facility], Allergy and Critical Care Medicine [address] [place] [address] Emmanuel Calixto MD [address] [place] [address] 10/04/2025 9:30 AM EST Office Visit [facility] [address] [facility], 8th [place] [address] Edgar Bowers MD, PhD [address] [place] [address] [email or web address] 10/24/2025 8:00 AM EST Office Visit [facility] [place] [address] [place] [address] Edgar Kaur MD [address] [place] [address] [email or web address] 01/11/2026 9:30 AM EDT Office Visit [facility] [address] [facility], [address] [place] [address] Poncho Thompson MD [address] [facility], [address] [place] [address] [email or web address] documented as of this encounter Visit Diagnoses Not on filedocumented in this encounter Additional Health Concerns Assessment Noted Time PHQ-2 Depression Total Score: 0 05/04/20 24 11:49 AM EDT documented as of this encounter Care Teams Golf Club Weigher Relationship Specialty Start Date End Date Poncho Thompson MD 52 [facility], [address] [place] [address] [email or web address] PCP - General Internal Medicine 02/10/24 documented as of this encounter Additional Source Comments The information contained in this document represents components of the legal health record. It is not the complete legal health record.[facility]
--- OUTSIDE RECORDS SUMMARY | 2025-07-24 15:33 | XMS_ITS | Encounter Summary ---
Author Organization [facility] Address [address] [place] [phone] Care Team Providers Care Digital Production Artist Name Role Phone Obtain, Unable To Primary Care Provider Unavaila ble Encounter Details Date Type Department Care Team (Late st Contact Info) Description 04/12/2022 Scanned Document Medical Dermatology at [address] [facility] [address] [facility] [address] [place] [address] External, Provider Social History Tobacco Use Types [...] on filedocumented in this encounter Care Teams Digital Production Artist Relationship Specialty Start Date End Date Obtain, Unable To PCP - General 08/02/18 documented as of this encounter
--- OUTSIDE RECORDS SUMMARY | 2025-07-24 15:33 | XMS_ITS | Encounter Summary ---
Author Organization [facility] Address [address] [place] [address] Phone Care Team Providers Care Lacquer Sprayer Name Role Phone Darlene Tobar MD Primary Care Provider [phone] Poncho Thompson MD Primary Care Provider Encounter Details Date Type Department Care Team (Late st Contact Info) Description 05/13/2022 Transcribe Orders [facility] [address] [place] [address] Renée West MD [address] [place] [address] [email or web address] Social History Tobacco Use Types Packs/Day [...] [facility] Pul[facility], Allergy and Critical Care Medicine [address] [place] [address] Emmanuel Calixto MD [address] [place] [address] [email or web address] 08/04/2025 1:00 PM EDT Nurse Only [facility] Pulmonary, Allergy and Critical Care Medicine [address] [place] [address] Emmanuel Calixto MD [address] [place] [address] [email or web address] 08/18/2025 1:00 PM EDT Nurse Only [facility], Allergy and Critical [facility] Medicine [address] [place] [address] Emmanuel Calixto MD [address] [place] [address] 09/01/2025 1:00 PM EST Nurse Only [facility], Allergy [facility] Critical [facility] Medicine [address] [place] [address] Emmanuel Calixto MD [address] [place] [address] 10/04/2025 9:30 AM EST Office Visit [facility] Neuromuscular Service [address] [facility], 8th [place] [address] Edgar Bowers MD, PhD [address] [address] [email or web address] 10/24/2025 8:00 AM EST Office Visit [facility] [address] [place] [address] Edgar Kaur MD [address] [place] [address] [email or web address] 01/11/2026 9:30 AM EDT Office Visit [facility] Primary Care Associates [address] [facility], [address] [place] [address] Poncho Thompson MD 52 [facility], [address] [place] [address] [email or web address] documented as of this encounter Visit Diagnoses Not on filedocumented in this encounter Additional Health Concerns Assessment Noted Time PHQ-2 Depression Total Score: 0 04/27/20 20 10:35 AM EDT documented as of this encounter Care Teams Lacquer Sprayer Relationship Specialty Start Date End Date Darlene Tobar MD [address] [facility] [place] [address] PCP - General Internal Medicine 01/01/22 02/09/24 Poncho Thompson MD [address] [place] [address], [address] [place] [address] [email or web address] PCP - General Internal Medicine 02/10/24 documented as of this encounter Additional Source Comments The information contained in this document represents components of the legal health record. It is not the complete legal health record.[facility]
--- OUTSIDE RECORDS SUMMARY | 2025-07-24 15:33 | XMS_ITS | Encounter Summary ---
Author Organization [facility] Address [address] [place] [address] Phone Care Team Providers Care Abstracter Name Role Phone Poncho Thompson MD Primary Care Provider Encounter Details Date Type Department Care Team (Late st Contact Info) Description 04/11/2024 Telephone [facility] Comprehensive Ophthalmology [address] [address] Beatrice Tolbert MD [address] [place] [address] Cali [email or web address] Social History Tobacco Use Types Packs/Day [...] Upcoming Encounters Date Type Department Care Team ([facility] st Contact Info) Description 07/28/2025 1:30 PM EDT Nurse Only [facility] Pulmonary, Allergy and Critical Care Medicine [address] [place] [address] Emmanuel Calixto MD [address] [place] [address] [email or web address] 08/04/2025 1:00 PM EDT Nurse Only [facility] Pul[facility], Allergy and Critical Care Medicine [address] [place] [address] Emmanuel Cailxto MD [address] [place] [address] 08/18/2025 1:00 PM EDT Nurse Only [facility], Allergy and Critical Care Medicine [address] [place] [address] Emmanuel Calixto MD [address] [place] [address] 09/01/2025 1:00 PM EST Nurse Only [facility] Pulmonary, Allergy and Critical Care Medicine [address] [place] [address] Emmanuel Calixto MD [address] [place] [address] 10/04/2025 9:30 AM EST Office [facility] [place] [place] Neuromuscular Service [address] [facility], 8th [place] [address] Edgar Bowers MD, PhD [address] [place] [address] 10/24/2025 8:00 AM EST Office Visit [facility] [address] [place] [address] Edgar Kaur MD [address] [place] [address] [email or web address] 01/11/2026 9:30 AM EDT Office Visit [facility] [place] [place] [facility] [address] [facility], [address] [place] [address] Poncho Thompson MD [address] [facility], [address] [place] [address] [email or web address] documented as of this encounter Visit Diagnoses Not on filedocumented in this encounter Additional Health Concerns Assessment Noted Time PHQ-2 Depression Total Score: 0 04/27/20 20 10:35 AM EDT documented as of this encounter Care Teams Abstracter Relationship Specialty Start Date End Date Poncho Thompson MD [address] [facility], [address] [place] [address] [email or web address] PCP - General Internal Medicine 02/10/24 documented as of this encounter Additional Source Comments The information contained in this document represents components of the legal health record. It is not the complete legal health record.[facility]
--- OUTSIDE RECORDS SUMMARY | 2025-07-24 15:33 | XMS_ITS | Encounter Summary ---
Author Organization [facility] Address [address] [place] [address] Phone Care Team Providers Care Neonatal Social Worker Name Role Phone Darlene Tobar MD Primary Care Provider [phone] Poncho Thompson MD Primary Care Provider Encounter Details Date Type Department Care Team (Late st Contact Info) Description 06/18/2023 Telephone [facility] Comprehensive Ophthalmology [address] [address] Beatrice Tolbert MD [address] [place] [address] [email or web address] Social History [...] ([facility] st Contact Info) Description 07/28/2025 1:30 PM EDT Nurse Only [facility] Pulmonary, Allergy and Critical Care Medicine [address] [place] [address] Emmanuel Calixto MD [address] [place] [address] 08/04/2025 1:00 PM EDT Nurse Only [facility] Pulmonary, Allergy and Critical Care Medicine [address] [place] [address] Emmanuel Calixto MD [address] [place] [address] [email or web address] 08/18/2025 1:00 PM EDT Nurse Only [facility] Pulmonary, Allergy and Critical Care Medicine [address] [place] [address] Emmanuel Calixto MD [address] [place] [address] 09/01/2025 1:00 PM EST Nurse Only [facility] Pulmonary, Allergy and Critical Care Medicine [address] [place] [address] Emmanuel Calixto MD [address] [place] [address] [email or web address] 10/04/2025 9:30 AM EST Office Visit [facility] Neuromuscular Service [address] [facility], 8th [place] [address] Edgar Bowers MD, PhD [address] [place] [address] [email or web address] 10/24/2025 8:00 AM EST Office Visit [facility] [place] [address] [place] [address] Edgar Kaur MD [address] [place] [address] [email or web address] 01/11/2026 9:30 AM EDT Office Visit [facility] [address] [facility], [address] [place] [address] Poncho Thompson MD [address] [place] [address], [facility] [address] [place] [address] [email or web address] documented as of this encounter Visit Diagnoses Not on filedocumented in this encounter Additional Health Concerns Assessment Noted Time PHQ-2 Depression Total Score: 0 04/27/20 20 10:35 AM EDT documented as of this encounter Care Teams Neonatal Social Worker Relationship Specialty Start Date End Date Darlene Tobar MD [address] [facility] [place] [address] PCP - General Internal Medicine 01/01/22 02/09/24 Poncho Thompson MD [address] [place] [address], [address] [place] [address] [email or web address] PCP - General Internal Medicine 02/10/24 documented as of this encounter Additional Source Comments The information contained in this document represents components of the legal health record. It is not the complete legal health record.[facility]
--- OUTSIDE RECORDS SUMMARY | 2025-07-24 15:33 | XMS_ITS | Encounter Summary ---
Author Organization [facility] Address [address] [place] [address] Phone Care Team Providers Care Furniture Builder Name Role Phone Darlene Tobar MD Primary Care Provider [phone] Poncho Thompson MD Primary Care Provider Encounter Details Date Type Department Care Team (Late Contact Info) Description 01/28/2022 Procedure Pass [facility] [address] [place] [address] Social History Tobacco Use Types Packs/Day Years [...] Pulmonary, Allergy and Critical Care Medicine 10 [facility] [place] [address] Emmanuel Calixto MD 10 [facility] 2nd [place] [address] [email or web address] 08/04/2025 1:00 PM EDT Nurse Only [facility] Pulmonary, Allergy and Critical Care Medicine 10 [place] [address] Emmanuel Calixto MD [address] [place] [address] [email or web address] 08/18/2025 1:00 PM EDT Nurse Only [facility] Pulmonary, Allergy and Critical Care Medicine 10 [place], [place] [phone] Emmanuel Calixto MD [address] [place] [address] 09/01/2025 1:00 PM EST Nurse Only [facility] Pulmonary, Allergy and Critical Care Medicine [address] [place] [address] Emmanuel Calixto MD [address] [place] [address] [email or web address] 10/04/2025 9:30 AM EST Office Visit [facility] Neuromuscular Service [address] [facility], 8th [place] [address] Edgar Bowers MD, PhD [address] [address] [email or web address] 10/24/2025 8:00 AM EST Office Visit [facility] [place] [address] [place] [address] Edgar Kaur MD [address] [place] [address] [email or web address] 01/11/2026 9:30 AM EDT Office Visit [facility] Primary Care Associates [address] [facility], [address] [place] [address] Poncho Thompson MD 52 [facility], [address] [place] [address] [email or web address] documented as of this encounter Visit Diagnoses Not on filedocumented in this encounter Additional Health Concerns Assessment Noted Time PHQ-2 Depression Total Score: 0 04/27/20 20 10:35 AM EDT documented as of this encounter Care Teams Furniture Builder Relationship Specialty Start Date End Date Darlene Tobar MD [address] [place] [address] PCP - General Internal Medicine 01/01/22 02/09/24 Poncho Thompson MD [address] [place] [address], [address] [place] [address] [email or web address] PCP - General Internal Medicine 02/10/24 documented as of this encounter Additional Source Comments The information contained in this document represents components of the legal health record. It is not the complete legal health record.[facility]
--- OUTSIDE RECORDS SUMMARY | 2025-07-24 15:33 | XMS_ITS | Encounter Summary ---
Author Organization [facility] Address [address] [place] [address] Care Team Providers Care Claims Account Specialist Name Role Phone Obtain, Unable To Primary Care Provider Unavaila ble Reason for Referral * Consultation (Routine) - Closed Specialty Diagnoses / Procedures Referred By Contheri t Referred To Contact Neurology Diagnoses Polyneuropathy Darlene Tobar MD [address] [place] [address] Phone: tel: fax: Neuromuscular Medicine at [address] [address] Phone: tel: fax: Referral ID Status Reason Start Date Expiration Date V isits Requested Visits Authorized [id number] Closed Specialty Services Required 06/30/2022 06/30/2023 1 1 Encounter Details Date Type Department Care Team (Latest Contact Info) Description 06/30/2022 Transcribed Orders Neuromuscular Medicine at [address] [address] Darlene Tobar MD [address] [place] [address] Polyneuropathy (Primary Dx) Social History Tobacco Use [...] neuropathy documented in this encounter Care Teams Claims Account Specialist Relationship Specialty Start Date End Date Obtain, Unable To PCP - General 08/02/18 documented as of this encounter
--- OUTSIDE RECORDS SUMMARY | 2025-07-24 15:33 | XMS_ITS | Clinical Summary ---
Author Organization [facility] Address [address] [place] [address] Care Team Providers Care Property Economist Name Role Phone Unavailable Primary Care Provider [...]
--- OUTSIDE RECORDS SUMMARY | 2025-07-24 15:34 | XMS_ITS | Encounter Summary ---
Author Organization [facility] Address [address] [place] [address] Phone Care Team Providers Care Rug Dyer Helper Name Role Phone Poncho Thompson MD Primary Care Provider Encounter Details Date Type Department Care Team (Late st Contact Info) Description 11/01/2024 Telephone [facility] Comprehensive Ophthalmology [address] [address] Beatrice Tolbert MD [address] [place] [address] Cali [email or web address] Social History Tobacco Use Types Packs/Day Years [...] Upcoming Encounters Date Type Department Care Team ([facility] st Contact Info) Description 07/28/2025 1:30 PM EDT Nurse Only [facility] Pulmonary, Allergy and Critical Care Medicine [address] [place] [address] Emmanuel Calixto MD [address] [place] [address] [email or web address] 08/04/2025 1:00 PM EDT Nurse Only [facility] Pulmonary, Allergy and Critical Care Medicine [address] [place] [address] Emmanuel Calixto MD [address] [place] [address] 08/18/2025 1:00 PM EDT Nurse Only [facility] Pulmonary, Allergy and Critical Care Medicine [address] [place] [address] Emmanuel Calixto MD [address] [place] [address] 09/01/2025 1:00 PM EST Nurse Only [facility] Pulmonary, Allergy and Critical Care Medicine [address] [place] [address] Emmanuel Calixto MD [address] [place] [address] 10/04/2025 9:30 AM EST Office Visit [facility] Neuromuscular Service [address] [facility], 8th [place] [address] Edgar Bowers MD, PhD [address] [place] [address] 10/24/2025 8:00 AM EST Office Visit [facility] [place] [address] [place] [address] Edgar Kaur MD [address] [place] [address] [email or web address] 01/11/2026 9:30 AM EDT Office Visit [facility] Primary Care Associates 52 [facility], [address] [place] [address] Poncho Thompson MD 52 [facility], [address] [place] [address] [email or web address] documented as of this encounter Visit Diagnoses Not on filedocumented in this encounter Additional Health Concerns Assessment Noted Time PHQ-2 Depression Total Score: 0 05/04/20 24 11:49 AM EDT documented as of this encounter Care Teams Rug Dyer Helper Relationship Specialty Start Date End Date Poncho Thompson MD 52 [facility], [address] [place] [address] [email or web address] PCP - General Internal Medicine 02/10/24 documented as of this encounter Additional Source Comments The information contained in this document represents components of the legal health record. It is not the complete legal health record.[facility]
--- OUTSIDE RECORDS SUMMARY | 2025-07-24 15:34 | XMS_ITS | Encounter Summary ---
Author Organization [facility] Address [address] [place] [address] Phone Care Team Providers Care Card Feeder Name Role Phone Poncho Thompson MD Primary Care Provider Reason for Visit * Reason Comments Med Change Request Encounter Details Date Type Department Care Team (Late st Contact Info) Description 07/03/2025 Refill [facility] Pulmonary Associates [address] [facility], 2nd Floor, [address] [place] [address] Cem Mo MD 55 [facility] 201 [place] [address] [email or web address] Med Change Request Social History Tobacco Use [...] [facility] Pulmonary, Allergy and Critical Care Medicine [address] [place] [address] Emmanuel Calixto MD [address] [place] [address] [email or web address] 08/04/2025 1:00 PM EDT Nurse Only [facility] Pulmonary, Allergy and Critical Care Medicine [address] [place] [address] Emmanuel Calixto MD [address] [place] [address] 08/18/2025 1:00 PM EDT Nurse Only [facility] Pul[facility], Allergy and Critical [facility] Medicine [address] [place] [address] Emmanuel Calixto MD [address] [place] [address] 09/01/2025 1:00 PM EST Nurse Only [facility] Pulmonary, Allergy and Critical Care Medicine [address] [place] [address] Emmanuel Calixto MD [address] [place] [address] 10/04/2025 9:30 AM EST Office Visit [facility] Neuromuscular Service [address] [facility], 8th [place] [address] Edgar Bowers MD, PhD [address] [place] [address] [email or web address] 10/24/2025 8:00 AM EST Office Visit [facility] [place] 800 [place] [address] Edgar Kaur MD [address] [place] [address] [email or web address] 01/11/2026 9:30 AM EDT Office Visit [facility] Primary Care Associates 52 [facility], [address] [place] [address] Poncho Thompson MD 52 [facility], [address] [place] [address] [email or web address] documented as of this encounter Visit Diagnoses Not on filedocumented in this encounter Additional Health Concerns Assessment Noted Time PHQ-2 Depression Total Score: 0 05/04/20 24 11:49 AM EDT documented as of this encounter Care Teams Card Feeder Relationship Specialty Start Date End Date Poncho Thompson MD 52 [facility], [address] [place] [address] [email or web address] PCP - General Internal Medicine 02/10/24 documented as of this encounter Additional Source Comments The information contained in this document represents components of the legal health record. It is not the complete legal health record.[facility]
--- OUTSIDE RECORDS SUMMARY | 2025-07-24 15:34 | XMS_ITS | Encounter Summary ---
Author Organization [facility] Address [address] [place] [address] Phone Care Team Providers Care Firefighter Type One Name Role Phone Paula Ritchie MD Primary Care Provider [phone] Darlene Tobar MD Primary Care Provider [phone] Jojo Christensen MD Primary Care Provider [phone] Darlene Tobar MD Primary Care Provider [phone] Darlene Tobar MD Primary Care Provider [phone] Poncho Thompson MD Primary Care Provider Encounter Details Date Type Department Care Team (Late st Contact Info) Description 09/12/2019 Telephone [facility] Gynecology Resident 75 [place] [address] [place], [place] [address] [place] [address] [email or web address] Social History Tobacco Use Types Packs/Day Years [...] [facility] Pulmonary, Allergy and Critical Care Medicine [address] [place] [address] Emmanuel Calixto MD [address] [place] [address] [email or web address] 08/04/2025 1:00 PM EDT Nurse Only [facility] Pulmonary, Allergy and Critical Care Medicine [address] [place] [address] Emmanuel Calixto MD [address] [place] [address] 08/18/2025 1:00 PM EDT Nurse Only [facility] Pulmonary, Allergy and Critical Care Medicine [address] [place] [address] Emmanuel Calixto MD [address] [place] [address] 09/01/2025 1:00 PM EST Nurse Only [facility] Pulmonary, Allergy and Critical Care Medicine [address] [place] [address] Emmanuel Calixto MD [address] [place] [address] 10/04/2025 9:30 AM EST Office Visit [facility] Neuromuscular Service 165 [facility], 8th [place] [address] Edgar Bowers MD, PhD [address] [address] 10/24/2025 8:00 AM EST Office Visit [facility] [place] 800 [place] [address] Edgar Kaur MD 243 [place] [address] [email or web address] 01/11/2026 9:30 AM EDT Office Visit [facility] Care Associates 52 [facility], [address] [place] [address] Poncho Thompson MD 52 [facility], [address] [place] [address] [email or web address] documented as of this encounter Visit Diagnoses Not on filedocumented in this encounter Additional Health Concerns Assessment Noted Time PHQ-2 Depression Total Score: 0 09/19/20 16 9:07 AM EST documented as of this encounter Care Teams Firefighter Type One Relationship Specialty Start Date End Date Paula Ritchie MD [address] [place] [address] PCP - General 06/13/16 09/26/20 Darlene Tobar MD [address] [place] [address] [place] [address] PCP - General Internal Medicine 09/27/20 12/15/20 Jojo Chrisetnsen MD 1 [facility], [address] [place] [address] [email or web address] PCP - General Internal Medicine 12/16/2012/19 Darlene Tobar MD [address] [place] [address] [place] [address] PCP - General Internal Medicine 12/20/20 12/31/21 Darlene Tobar MD [address] [place] [address] [place] [address] PCP - General Internal Medicine 01/01/22 02/09/24 Poncho Thompson MD [address] [place] [address], [address] [place] [address] [email or web address] PCP - General Internal Medicine 02/10/24 documented as of this encounter Additional Source Comments The information contained in this document represents components of the legal health record. It is not the complete legal health record.[facility]
--- OUTSIDE RECORDS SUMMARY | 2025-07-24 15:34 | XMS_ITS | Encounter Summary ---
Author Organization [facility] Address [address] [place] [address] Phone Care Team Providers Care Retread Technician Name Role Phone Poncho Thompson MD Primary Care Provider Encounter Details Date Type Department Care Team (Late st Contact Info) Description 10/31/2024 Telephone [facility] Comprehensive Ophthalmology [address] [address] Beatrice Tolbert MD [address] [place] [address] Cali [email or web address] Social History Tobacco Use Types Packs/Day [...] Upcoming Encounters Date Type Department Care Team ([facility] st Contact Info) Description 07/28/2025 1:30 PM EDT Nurse Only [facility] Pulmonary, Allergy and Critical Care Medicine [address] [place] [address] Emmanuel Calixto MD [address] [place] [address] [email or web address] 08/04/2025 1:00 PM EDT Nurse Only [facility] Pulmonary, Allergy and Critical Care Medicine [address] [place] [address] Emmanuel Calixto MD [address] [place] [address] 08/18/2025 1:00 PM EDT Nurse Only [facility] Pulmonary, Allergy and Critical Care Medicine [address] [place] [address] Emmanuel Calixto MD [address] [place] [address] 09/01/2025 1:00 PM EST Nurse Only [facility] Pulmonary, Allergy and Critical Care Medicine [address] [place] [address] Emmanuel Calixto MD [address] [place] [address] 10/04/2025 9:30 AM EST Office Visit [facility] Neuromuscular Service [address] [facility], 8th [place] [address] Edgar Bowers MD, PhD [address] [place] [address] 10/24/2025 8:00 AM EST Office Visit [facility] [place] 800 [place] [address] Edgar Kaur MD [address] [place] [address] [email or web address] 01/11/2026 9:30 AM EDT Office Visit [facility] Primary Care Associates 52 [facility], [address] [place] [address] Poncho Thompson MD 52 [facility], [address] [place] [address] [email or web address] documented as of this encounter Visit Diagnoses Not on filedocumented in this encounter Additional Health Concerns Assessment Noted Time PHQ-2 Depression Total Score: 0 05/04/20 24 11:49 AM EDT documented as of this encounter Care Teams Retread Technician Relationship Specialty Start Date End Date Poncho Thompson MD 52 [facility], [address] [place] [address] [email or web address] PCP - General Internal Medicine 02/10/24 documented as of this encounter Additional Source Comments The information contained in this document represents components of the legal health record. It is not the complete legal health record.[facility]
--- OUTSIDE RECORDS SUMMARY | 2025-07-24 15:34 | XMS_ITS | Encounter Summary ---
Author Organization [facility] Address [address] [place] [address] Phone Care Team Providers Care Bull Bucker Name Role Phone Poncho Thompson MD Primary Care Provider Encounter Details Date Type Department Care Team (Late st Contact Info) Description 10/25/2024 Telephone [facility] Comprehensive Ophthalmology [address] [address] Beatrice Tolbert MD [address] [place] [address] Cali [email or web address] Social History Tobacco Use Types Packs/Day Years [...] Upcoming Encounters Date Type Department Care Team ([facility] st Contact Info) Description 07/28/2025 1:30 PM EDT Nurse Only [facility] Pulmonary, Allergy and Critical Care Medicine [address] [place] [address] Emmanuel Calixto MD [address] [place] [address] [email or web address] 08/04/2025 1:00 PM EDT Nurse Only [facility] Pulmonary, Allergy and Critical Care Medicine [address] [place] [address] Emmanuel Calixto MD [address] [place] [address] 08/18/2025 1:00 PM EDT Nurse Only [facility] Pulmonary, Allergy and Critical Care Medicine [address] [place] [address] Emmanuel Calixto MD [address] [place] [address] 09/01/2025 1:00 PM EST Nurse Only [facility] Pulmonary, Allergy and Critical Care Medicine [address] [place] [address] Emmanuel Calixto MD [address] [place] [address] 10/04/2025 9:30 AM EST Office Visit [facility] Neurom[facility] [address] [employer], 8th [place] [address] Edgar Bowers MD, PhD [address] [place] [address] 10/24/2025 8:00 AM EST Office Visit [facility] [place] [address] [place] [address] Edgar Kaur MD [address] [place] [address] [email or web address] 01/11/2026 9:30 AM EDT Office Visit [facility] 52 [facility], [address] [place] [address] Poncho Thompson MD 52 [facility], [address] [place] [address] [email or web address] documented as of this encounter Visit Diagnoses Not on filedocumented in this encounter Additional Health Concerns Assessment Noted Time PHQ-2 Depression Total Score: 0 05/04/20 24 11:49 AM EDT documented as of this encounter Care Teams Bull Bucker Relationship Specialty Start Date End Date Poncho Thompson MD 52 [facility], [address] [place] [address] [email or web address] PCP - General Internal Medicine 02/10/24 documented as of this encounter Additional Source Comments The information contained in this document represents components of the legal health record. It is not the complete legal health record.[facility]
--- OUTSIDE RECORDS SUMMARY | 2025-07-24 15:34 | XMS_ITS | Encounter Summary ---
Author Organization [facility] Address [address] [place] [address] Phone Care Team Providers Care Electrician Powerhouse Name Role Phone Poncho Thompson MD Primary Care Provider Encounter Details Date Type Department Care Team (Late st Contact Info) Description 01/30/2025 Prep for Surgery [facility] [address] [place] [address] Edgar Kaur MD [address] [place] [address] [email or web address] Primary open angle glaucoma of both eyes, [...] ([facility] st Contact Info) Description 07/28/2025 1:30 PM EDT Nurse Only [facility] [address] [place] [address] Emmanuel Calixto MD [address] [place] [address] 08/04/2025 1:00 PM EDT Nurse Only [facility] [address] [place] [address] Emmanuel Calixto MD [address] [place] [address] 08/18/2025 1:00 PM EDT Nurse Only [facility] [address] [place] [address] Emmanuel aClixto MD [address] [place] [address] 09/01/2025 1:00 PM EST Nurse Only [facility] [address] [place] [address] Emmanuel Calixto MD [address] [place] [address] 10/04/2025 9:30 AM EST Office Visit [facility] [address] [facility], 8th [place] [address] Edgar Bowers MD, PhD [address] [place] [address] [email or web address] 10/24/2025 8:00 AM EST Office Visit [facility] [place] [address] [place] [address] Edgar Kaur MD [address] [place] [address] [email or web address] 01/11/2026 9:30 AM EDT Office Visit [facility] [address] [facility] [place] [address] Poncho Thompson MD [address] [facility], [address] [place], [place] [id number] [email or web address] documented as of this encounter Results * Laser Trabeculoplasty Selective - OU - Both Eyes (05/26/2025 4:11 PM EDT) Anatomical Region Laterality Modality Head Laser Room Other Narrative 05/26/2025 5:05 PM EDT Alpha Protocol Fall Risk Assessment: age >65 (10 [...] Notes Ketorolac qid OU x 4 days us Edgar Kaur MD OPHTHALMOLOGY PROCEDURES Final Result documented in this encounter Visit Diagnoses Diagnosis Primary open angle glaucoma of both eyes, mild stage- Primary Primary open angle glaucoma of both eyes, mild stage documented in this encounter Additional Health Concerns Assessment Noted Time PHQ-2 Depression Total Score: 0 05/04/20 11:49 AM EDT documented as of this encounter Care Teams Electrician Powerhouse Relationship Specialty Start Date End Date Poncho Thompson MD [address] [place] [address], [place] [address] [email or web address] PCP - General Internal Medicine 02/10/24 documented as of this encounter Additional Source Comments The information contained in this document represents components of the legal health record. It is not the complete legal health record.[facility]
--- OUTSIDE RECORDS SUMMARY | 2025-07-24 15:34 | XMS_ITS | Encounter Summary ---
Author Organization [facility] Address [address] [place] [address] Phone Care Team Providers Care Paper Grader Name Role Phone Poncho Thompson MD Primary Care Provider Encounter Details Date Type Department Care Team (Late st Contact Info) Description 12/02/2024 Telephone [facility] Comprehensive Ophthalmology [address] [address] Beatrice Tolbert MD [address] [place] [address] Cali [email or web address] Social History Tobacco Use Types Packs/Day [...] Upcoming Encounters Date Type Department Care Team ([facility] st Contact Info) Description 07/28/2025 1:30 PM EDT Nurse Only [facility] [address] [place] [address] Emmanuel Calixto MD [address] [place] [address] [email or web address] 08/04/2025 1:00 PM EDT Nurse Only [facility] [address] [place] [address] Emmanuel Calixto MD [address] [place] [address] 08/18/2025 1:00 PM EDT Nurse Only [facility] [address] [place] [phone] Emmanuel Calixto MD [address] [place] [address] 09/01/2025 1:00 PM EST Nurse Only [facility] [address] [place] [address] Emmanuel Calixto MD [address] [place] [address] 10/04/2025 9:30 AM EST Office Visit [facility] Neuromuscular Service [address] [facility], 8th [place] [address] Edgar Bowers MD, PhD [address] [place] [address] 10/24/2025 8:00 AM EST Office Visit [facility] [place] [address] [place] [address] Edgar Kaur MD [address] [place] [address] [email or web address] 01/11/2026 9:30 AM EDT Office Visit [facility] [address] [facility], [address] [place] [address] Poncho Thompson MD [address] [facility], [address] [place] [address] [email or web address] documented as of this encounter Visit Diagnoses Not on filedocumented in this encounter Additional Health Concerns Assessment Noted Time PHQ-2 Depression Total Score: 0 05/04/20 24 11:49 AM EDT documented as of this encounter Care Teams Paper Grader Relationship Specialty Start Date End Date Poncho Thompson MD [address] [facility], [address] [place] [address] [email or web address] PCP - General Internal Medicine 02/10/24 documented as of this encounter Additional Source Comments The information contained in this document represents components of the legal health record. It is not the complete legal health record.[facility]
--- OUTSIDE RECORDS SUMMARY | 2025-07-24 15:34 | XMS_ITS | Encounter Summary ---
Author Organization [facility] Address [address] [place] [address] Phone Care Team Providers Care Retail Asset Protection Specialist Name Role Phone Poncho Thompson MD Primary Care Provider Encounter Details Date Type Department Care Team (Late st Contact Info) Description 01/27/2025 Telephone [facility] Comprehensive Ophthalmology [address] [address] Beatrice Tolbert MD [address] [place] [address] Cali [email or web address] Social History Tobacco Use Types Packs/Day Years [...] Upcoming Encounters Date Type Department Care Team ([facility] st Contact Info) Description 07/28/2025 1:30 PM EDT Nurse Only [facility] [address] [place] [address] Emmanuel Calixto MD [address] [place] [address] [email or web address] 08/04/2025 1:00 PM EDT Nurse Only [facility] [address] [place] [address] Emmanuel Calixto MD [address] [place] [address] 08/18/2025 1:00 PM EDT Nurse Only [facility] [address] [place] [address] Emmanuel Calixto MD [address] [place] [address] 09/01/2025 1:00 PM EST Nurse Only [facility] [address] [place] [address] Emmanuel Calixto MD [address] [place] [address] 10/04/2025 9:30 AM EST Office Visit [facility] [address] [facility], 8th [place] [address] Edgar Bowers MD, PhD [address] [place] [address] 10/24/2025 8:00 AM EST Office Visit [facility] [place] [address] [place] [address] Edgar Kaur MD [address] [place] [address] [email or web address] 01/11/2026 9:30 AM EDT Office Visit [facility] [address] [facility], [address] [place] [address] Poncho Thompson MD [address] [facility], [address] [place] [address] [email or web address] documented as of this encounter Visit Diagnoses Not on filedocumented in this encounter Additional Health Concerns Assessment Noted Time PHQ-2 Depression Total Score: 0 05/04/20 24 11:49 AM EDT documented as of this encounter Care Teams Retail Asset Protection Specialist Relationship Specialty Start Date End Date Poncho Thompson MD [address] [facility], [address] [place] [address] [email or web address] [email or web address] PCP - General Internal Medicine 02/10/24 documented as of this encounter Additional Source Comments The information contained in this document represents components of the legal health record. It is not the complete legal health record.[facility]
--- OUTSIDE RECORDS SUMMARY | 2025-07-24 15:35 | XMS_ITS | Clinical Summary ---
Author Organization [address] Address [address] [place] [id number] Care Team Providers Care Pulp Grinder Feeder Name Role Phone Obtain, Unable To Primary [...] to complete this topic Insurance BASIL SCHERER [facility] MGD LUANNEJOSE SCHERER [facility] CHRIS SCHERER [facility] Care Teams Pulp Grinder Feeder Relationship Specialty Start Date End Date Obtain, Unable To PCP - General 08/02/18
--- OUTSIDE RECORDS SUMMARY | 2025-07-24 15:35 | XMS_ITS | Encounter Summary ---
Author Organization [facility] Address [address] [place] [address] Phone Care Team Providers Care Switchboard Installer Name Role Phone TrancyngerPoncho MD Primary Care Provider Encounter Details Date Type Department Care Team (Late st Contact Info) Description 07/11/2024 Procedure [facility] [address] [facility], 6th [place] [address] Social History Tobacco Use Types Packs/Day Years [...] [facility], [facility] [address] [place] [address] Emmanuel Calixto MD [address] [place] [address] [email or web address] 08/04/2025 1:00 PM EDT Nurse Only [facility] [address] [place] [address] Emmanuel Calixto MD [address] [place] [address] [email or web address] 08/18/2025 1:00 PM EDT Nurse Only [facility] [address] [place] [address] Emmanuel Calixto MD [address] [place] [address] [email or web address] 09/01/2025 1:00 PM EST Nurse Only [facility] [address] [place] [address] Emmanuel Calixto MD [address] [place] [address] 10/04/2025 9:30 AM EST Office Visit [facility] Neuromuscular Service [address] 8th [place] [address] Edgar Bowers MD, PhD [address] [address] [email or web address] 10/24/2025 8:00 AM EST Office Visit [facility] [place] [address] [place] [address] Edgar Kaur MD [address] [place] [address] [email or web address] 01/11/2026 9:30 AM EDT Office Visit [facility] [address] [facility], [address] [place] [address] Poncho Thompson MD [address] [facility], [address] [place] [address] [email or web address] documented as of this encounter Visit Diagnoses Not on filedocumented in this encounter Additional Health Concerns Assessment Noted Time PHQ-2 Depression Total Score: 0 05/04/20 24 11:49 AM EDT documented as of this encounter Care Teams Switchboard Installer Relationship Specialty Start Date End Date Poncho Thompson MD [address] [facility], [address] [place] [address] [email or web address] PCP - General Internal Medicine 02/10/24 documented as of this encounter Additional Source Comments The information contained in this document represents components of the legal health record. It is not the complete legal health record.[facility]
--- OUTSIDE RECORDS SUMMARY | 2025-07-24 15:35 | XMS_ITS | Clinical Summary ---
Author Organization [facility] Address [address] [place] [address] Phone Care Team Providers Care Shipping Packer Name Role Phone Poncho Thompson MD Primary [...] is able to transport her serums from [place] here. Will then continue with weekly buildup [...] a cough. 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 [...] that two lung scans 2007, 2015 from [place] and some more from [place] will be coming. Has not tried levalbuterol, since no emergencies. 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 Working on her weight with variable success. Seven air purifiers at home, cats no longer bother her. No travel to [facility], [place] or elsewhere in the last couple of [...] by Dr. King. - Wants echo at [facility] for her mitral valve. Mild MR (would [...] a cough. 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 [...] that two lung scans 2007, 2015 from [place] and some more from [place] will be coming. Has not tried levalbuterol, since no emergencies. 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 Working on her weight with variable success. Seven air purifiers at home, cats no longer bother her. No travel to [facility], [place] or elsewhere in the last couple of [...] by Dr. King. - Wants echo at [facility] for her mitral valve. Mild MR (would [...] a cough. 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 [...] Plan - CT chest in June at [facility] for new EDY nodule. We will review after. - Return 6 months. - Increase Flovent 110 from one puff BID to two puffs BID. If no change, OK to start Symbicort as suggested by Dr. King. - Wants echo at [facility] for her mitral valve. Mild MR (would [...] -Obtain previous CT scans and reports from [facility] and other facilities for comparison. Assessment & [...] underwent overnight in laboratory split-night study through [facility] which demonstrated evidence of sleep apnea [...] pleased that she will be seeing a dental secretary later today. Vocal hygiene measures and treatment [...] [facility] [address] [place] [address] Baldomero Swanson MD Allergic rhinitis, unspecified seasonality, unspecified trigger (Primary Dx) 07/07/2025 1:00 PM EDT Nurse Only [facility] [address] [place] [address] Rakan Reed MD, MS Allergic rhinitis, unspecified seasonality, unspecified trigger (Primary Dx) 07/05/2025 8:00 AM EDT Office Visit [facility] [address] [facility] [address] [place] [address] Edgar Kaur MD Primary open angle glaucoma of both eyes, mild stage (Primary Dx) 07/03/2025 Refill [facility] [address] [facility], 2nd Floor, [address] [place] [address] Cem Mo MD Med Change Request 07/03/2025 Orders Only [facility] [address] [facility], 2nd Floor, [address] [place] [address] Cem Mo MD 06/23/2025 1:00 PM EDT Nurse Only [facility] [address] [place] [address] Emmanuel Calixto MD Allergic rhinitis, unspecified seasonality, unspecified trigger (Primary Dx) 06/23/2025 Refill [facility] [address] [place] [address] Jeanine Murillo LPN Medication Refill (Pt requesting epipen for emergency) 06/12/2025 1:00 PM EDT Nurse Only [facility] [address] [place] [address] Edgar Marks MD Allergic rhinitis, unspecified seasonality, unspecified trigger (Primary Dx) 05/29/2025 1:00 PM EDT Nurse Only [facility] [address] [place] [address] Emmanuel Calixto MD Allergic rhinitis, unspecified seasonality, unspecified trigger (Primary Dx) 05/26/2025 3:30 PM EDT Procedure visit [facility] 1st Floor [address] [facility] 1st [place] [address] Edgar Kaur MD Primary open angle glaucoma of both eyes, mild stage 05/26/2025 Orders Only [facility] [address] [facility], [address] [place] [address] Cem Mo MD Chronic cough; Mild intermittent asthma without complication 05/15/2025 1:00 PM EDT Nurse Only [facility] [address] [place] [address] Emmanuel Calixto MD Allergic rhinitis, unspecified seasonality, unspecified trigger (Primary Dx) 05/14/2025 Refill [facility] [address] [facility], [address] Floor, [address] [place] [address] Lindsay Cade CNP Medication Refill 05/08/2025 2:00 PM EDT Nurse Only [facility] [address] [place] [address] Emmanuel Calixto MD Allergic rhinitis, unspecified seasonality, unspecified trigger (Primary Dx) 04/24/2025 11:30 AM EDT Nurse Only [facility] [address] [place] [address] Emmanuel Calixto MD Allergic rhinitis, unspecified seasonality, unspecified trigger (Primary Dx) from Last 3 Months Immunizations Immunization Administration Dates Next Due Influenza High-Dose Quadriva lent Preservative Free IM 09/11/2023,2022 Influenza Quadrivalent w/ Preservative IM 01/21/2012(Deferred: Other - , Ordered By: [id number]) Tdap 03/18/2017 Family History Medical History Relation [...] [facility] [address] [place] [address] Emmanuel Calixto MD [address] [place] [address] [email or web address] 08/04/2025 1:00 PM EDT Nurse Only [facility] [address] [place] [address] Emmanuel Calixto MD [address] [place] [address] [email or web address] 08/18/2025 1:00 PM EDT Nurse Only [facility] [address] [place] [address] Emmanuel Calixto MD [address] [place] [address] [email or web address] 09/01/2025 1:00 PM EST Nurse Only [facility] [address] [place] [address] Emmanuel Calixto MD [address] [place] [address] [email or web address] 10/04/2025 9:30 AM EST Office Visit [facility] [address] [facility], 8th [place] [address] Edgar Bowers MD, PhD [address] [place] [address] [email or web address] 10/24/2025 8:00 AM EST Office Visit [facility] Gl[facility] [place] [address] [place] [address] Edgar Kaur MD [address] [place] [address] [email or web address] 01/11/2026 9:30 AM EDT Office Visit [facility] [address] [facility], [address] [place] [address] Poncho Thompson MD [address], [address] [place] [address] [email or web address] Health Maintenance Due Date Last Done Comments PNEUMOCOCCAL VACCINES (50+ years) (1 of 2 - PCV) 1975 COLOGUARD 2001 FIT TEST 2001 FOBT 2001 SIGMOIDOSCOPY 2001 VIRTUAL COLONOSCOPY 2001 RSV VACCINE (1 - Risk 50-74 years 1-dose series) 2006 ZOSTER VACCINES (1 of 2) 2006 DEPRESSION SCREENING 05/04/2025 05/04/2024 INFLUENZA VACCINE (#1) 2025 , 09/11/2023, 2022 COVID-19 VACCINE (3 - 2024- season) 2025 06/05/2021, 05/15/2021 Adult Td,Tdap Booster [...] Room Other Narrative 05/26/2025 5:05 PM EDT [place] Protocol Fall Risk Assessment: age >65 (10 [...] AM EDT) HCV NON-REACTIV E NON-REACTI VE [facility] Blood 07/05/2024 7:40 AM EDT 07/05/2024 7:45 AM EDT us Poncho Thompson MD LAB BLOOD ORDERABLES F inal Result Performing Organization Address City/[facility]/ZIP Co de Phone Number [address] [address] * (ABNORMAL) Lipid panel (07/05/2024 7:40 AM EDT) HDL 66 mg/dL [facility] Comment: Interpretation <40 mg/dL: Low HDL cholesterol (major risk factor for CHD) Greater than or equal to 60 mg/dL: High HDL cholesterol ( negative risk factor for CHD) HDL - cholesterol is affected by a number of factors, e.g. smoking, excerise, hormones, sex and age. CHOLESTEROL 208 0 - 240 mg/dL [facility] TRIGLYCERIDES 80 30 - 160 mg/dL [facility] LDL 126 50 - 129 mg/dL [facility] Comment: LDL levels in terms of risk for coronary heart disease: <100 mg/dL: Optimal 100-129 mg/dL: Near or above optimal 130-159 mg/dL: Borderline high 160-189 mg/dL: High >190 mg/dL: Very High CARDIAC RISK RATIO 3.2(L) 3.3 - 4.4 C [facility] Blood 07/05/2024 7:40 AM EDT 07/05/2024 7:44 AM EDT us Poncho Thompson MD LAB BLOOD ORDERABLES F inal Result Performing Organization Address City/[facility]/ZIP Co de Phone Number [address] [address] * COLONOSCOPY FOR RESULT ENTRY ONLY (10/19/2022) Colonoscopy done us Historical Provider MD HEALTH MAINTENANCE Final Result * MAMMOGRAPHY FOR RESULT ENTRY ONLY (10/19/2022) HM Mammogram done us Historical Provider MD HEALTH MAINTENANCE Final Result * BD DXA AXIAL (SPINE) WITH HIP (08/02/2022 8:56 AM EDT) Anatomical Region Laterality Modality Bone Density Bone Density 08/02/2022 8:50 AM EDT Impressions 08/04/2022 3:28 PM EDT Interpretation: Osteopenia. Narrative 08/04/2022 3:28 PM EDT Referred By: DARLENE TOBAR Scanner: [employer] with serial# of [id number] located at [address] [place] [address] Bone Density Scan (DXA) 08/02/22 Details of [...] - 08/04/2022 Referred By: DARLENE TOBAR Scanner: [employer] with serial# of [id number] located at [address] [place] [address] Bone Density Scan (DXA) 08/02/22 Details of [...] Most Recently Relevant to Health Maintenance Insurance , [place] [address] [employer] PPO MEDICARE REPLACEMENT AETNA [facility] MEDICARE REPLACEMENT AETNA [facility] MEDICARE REPLACEMENT AETNA [facility] MEDICARE REPLACEMENT [facility] MEDICARE REPLACEMENT [facility] MEDICARE REPLACEMENT [facility] MEDICARE REPLACEMENT [employer] PPO MEDICARE REPLACEMENT Care Teams Shipping Packer Relationship Specialty Start Date End Date Poncho Thompson MD [address] [place] [address], [address] [place] [address] [email or web address] PCP - General Internal Medicine 02/10/24 Additional Source Comments The information contained in this document represents components of the legal health record. It is not the complete legal health record.[facility]
--- OUTSIDE RECORDS SUMMARY | 2025-07-24 15:36 | XMS_ITS | Encounter Summary ---
Author Organization [facility] Address [address] [place] [address] Phone Care Team Providers Care Automation Qa Analyst Name Role Phone Paula Ritchie MD Primary Care Provider [phone] Darlene Tobar MD Primary Care Provider Jojo Christensen MD Primary Care Provider [phone] Darlene Tobar MD Primary Care Provider Darlene Tobar MD Primary Care Provider [phone] Poncho Thompson MD Primary Care Provider Encounter Details Date Type Department Care Team (Late st Contact Info) Description 11/18/2016 Procedure Pass [facility] [address] [place] [address] Social History Tobacco Use Types Packs/Day Years [...] Pulmonary, Allergy and Critical Care Medicine [address] [place] [phone] Emmanuel Calixto MD [address] [place] [address] [email or web address] 08/04/2025 1:00 PM EDT Nurse Only [facility] [address] [place] [address] Emmanuel Calixto MD [address] [place] [address] [email or web address] 08/18/2025 1:00 PM EDT Nurse Only [facility] [address] [place] [address] Emmanuel Calixto MD [address] [place] [address] [email or web address] 09/01/2025 1:00 PM EST Nurse Only [facility] [address] [place] [address] Emmanuel Calixto MD [address] [place] [address] [email or web address] 10/04/2025 9:30 AM EST Office Visit [facility] Neuromuscular Service [address] [facility], 8th [place] [address] Edgar Bowers MD, PhD [address] [address] [email or web address] 10/24/2025 8:00 AM EST Office Visit [facility] [place] [address] [place] [address] Edgar Kaur MD [address] [place] [address] [email or web address] 01/11/2026 9:30 AM EDT Office Visit [facility] [address] [facility], [address] [place] [address] Poncho Thompson MD [address] [facility], [address] [place] [address] [email or web address] documented as of this encounter Visit Diagnoses Not on filedocumented in this encounter Additional Health Concerns Assessment Noted Time PHQ-2 Depression Total Score: 0 09/19/20 16 9:07 AM EST documented as of this encounter Care Teams Automation Qa Analyst Relationship Specialty Start Date End Date Paula Ritchie MD [address] [place] [address] PCP - General 06/13/16 09/26/20 Darlene Tobar MD [address] [place] [address] PCP - General Internal Medicine 09/27/20 12/15/20 Jojo Christensen MD [address] [place] [address], [address] [place] [address] [email or web address] PCP - General Internal Medicine 12/16/2012/19 Darlene Tobar MD [address] [place] [address] PCP - General Internal Medicine 12/20/20 12/31/21 Darlene Tobar MD [facility] [place] [address] PCP - General Internal Medicine 01/01/22 02/09/24 Poncho Thompson MD [address] [place] [address], [address] [place] [address] [email or web address] PCP - General Internal Medicine 02/10/24 documented as of this encounter Additional Source Comments The information contained in this document represents components of the legal health record. It is not the complete legal health record.[facility]
--- OUTSIDE RECORDS SUMMARY | 2025-07-24 15:36 | XMS_ITS | Encounter Summary ---
Author Organization [facility] Address [address] [place] [address] Phone Care Team Providers Care Veneer Taping Machine Offbearer Name Role Phone Paula Ritchie MD Primary Care Provider [phone] Darlene Tobar MD Primary Care Provider Jojo Christensen MD Primary Care Provider [phone] Darlene Tobar MD Primary Care Provider [phone] Darlene Tobar MD Primary Care Provider [phone] Poncho Thompson MD Primary Care Provider Encounter Details Date Type Department Care Team (Late st Contact Info) Description 10/07/2016 Transcribe Orders [facility] [address] [place] [address] Aaliyah Bell [address] [place] [address] [email or web address] Social History Tobacco Use Types Packs/Day Years [...] Upcoming Encounters Date Type Department Care Team ([facility] st Contact Info) Description 07/28/2025 1:30 PM EDT Nurse Only [facility] [address] [place] [address] Emmanuel Calixto MD [address] [place] [address] 08/04/2025 1:00 PM EDT Nurse Only [facility] [address] [place] [address] Emmanuel Calixto MD [address] [place] [address] [email or web address] 08/18/2025 1:00 PM EDT Nurse Only [facility] [address] [place] [address] Emmanuel Calixto MD [address] [place] [address] 09/01/2025 1:00 PM EST Nurse Only [facility] [address] [place] [address] Emmanuel Calixto MD [address] [place] [address] 10/04/2025 9:30 AM EST Office Visit [facility] [address] [facility], 8th [place] [address] Edgar Bowers MD, PhD [address] [place] [address] [email or web address] 10/24/2025 8:00 AM EST Office Visit [facility] [place] [address] [place] [address] Edgar Kaur MD [address] [place] [address] [email or web address] 01/11/2026 9:30 AM EDT Office Visit [facility] [address] [facility], [address] [place] [address] Poncho Thompson MD [address] [facility], [address] [place] [address] [email or web address] documented as of this encounter Results * XR Chest Outside (No Interpretation) (10/07/2016 12:00 AM EST) Narrative [facility] - 10/07/2016 10:11 AM EST This study is for PACS storage only and not for interpretation. us Juan J Bo MD IMG OUTSIDE IMAGING W/OUT INTE RPRETATION Final Result [facility] documented in this encounter Visit Diagnoses Not on filedocumented in this encounter Additional Health Concerns Assessment Noted Time PHQ-2 Depression Total Score: 0 09/19/20 16 9:07 AM EST documented as of this encounter Care Teams Veneer Taping Machine Offbearer Relationship Specialty Start Date End Date Paula Ritchie MD [address] [place] [address] PCP - General 06/13/16 09/26/20 Darlene Tobar MD [facility] [place] [address] PCP - General Internal Medicine 09/27/20 12/15/20 Jojo Christensen MD [address] [facility], [address] [place] [address] [email or web address] PCP - General Internal Medicine 12/16/2012/19 Darlene Tobar MD [address] [place] [address] [place] [address] PCP - General Internal Medicine 12/20/20 12/31/21 Darlene Tobar MD [address] [place] [address] [place] [address] PCP - General Internal Medicine 01/01/22 02/09/24 Poncho Thompson MD [address] [place] [address], [place] [id number] [email or web address] PCP - General Internal Medicine 02/10/24 documented as of this encounter Additional Source Comments The information contained in this document represents components of the legal health record. It is not the complete legal health record.[facility]
--- OUTSIDE RECORDS SUMMARY | 2025-07-24 15:36 | XMS_ITS | Clinical Summary ---
Author Organization [facility] Address [address] [place] [address] Care Team Providers Care Hotel Dining Room Cashier Name Role Phone Poncho Thompson MD Primary [...] Health Maintenance Due Date Last Done Comments Colorectal Cancer Screening: Colonoscopy 1955 Pneumococcal Vaccine: 50+ Years (1 of 2 - PCV) 1975 Zoster Vaccines (1 of 2) 2006 RSV Immunization Adult Patients (1 - Risk 60-74 years 1-dose series) 2016 Medicare Annual Wellness Visit 03/05/2021 Social Influencers [...] year. [facility]amm[facility] [address], [address] -------- FINAL REPORT -------- Dictated By: Clovis De León Dictated Date: 03/20/2025 07:00 ET Assigned Physician: Clovis De León Reviewed and Electronically Signed By: Clovis De León Signed Date: 03/20/2025 07:05 ET Workstation ID: [id number] Transcribed By: Self Edit Transcribed Date: 03/20/2025 07:00 ET Narrative 03/20/2025 7:05 AM EDT EXAM: SCREENING MAMMOGRAPHY, BILATERAL HISTORY: SCREENING. Scar marker outer left breast for reportedly benign process. COMPARISON: 12/05/23, 11/29/22, 11/23/21, 10/06/20 TECHNIQUE: Synthesized CC and MLO projections of each breast. Tomosynthesis of each breast in the CC and MLO projections. ADDITIONAL IMAGING: None Computer-aided detection was employed with the Panviva AI 3-D. TISSUE DENSITY: There are scattered areas of fibroglandular density. (BI-RADS category B) FINDINGS: RIGHT BREAST: No suspicious mass. No suspicious calcification. No distortion. No additional suspicious right breast findings LEFT BREAST: No suspicious mass. No suspicious calcification. No distortion. No additional suspicious left breast findings Procedure Note Clovis D eLeón MD - 03/20/2025 EXAM: SCREENING MAMMOGRAPHY, BILATERAL HISTORY: SCREENING. Scar marker outer left breast for reportedly benignprocess. COMPARISON: 12/05/23, 11/29/22, 11/23/21, 10/06/20 TECHNIQUE: Synthesized CC and MLO projections of each breast.Tomosynthesis of each breast in the CC and MLO projections. ADDITIONAL IMAGING: None Computer-aided detection was employed with the Panviva AI 3-D. TISSUE DENSITY: There are scattered [...] year. [facility]ammography [facility] [address], [address] -------- FINAL REPORT -------- Dictated By: Clovis De León Dictated Date: 03/20/2025 07:00 ET Assigned Physician: Clovis De León Reviewed and Electronically Signed By: Clovis De León Signed Date: 03/20/2025 07:05 ET Workstation ID: [id number] Transcribed By: Self Edit Transcribed Date: 03/20/2025 07:00 ET us Self Referral Sppl IMG BI PROCEDURES Final Resul t from Last 3 Months or Most Recently Relevant to Health Maintenance Insurance [employer] MEDICARE ADVANTAGE Care Teams Hotel Dining Room Cashier Relationship Specialty Start Date End Date Poncho Thompson MD [address] [place] [address], [address] [place] [address] PCP - General Internal Medicine 03/18/25
--- OUTSIDE RECORDS SUMMARY | 2025-07-24 15:36 | XMS_ITS | Encounter Summary ---
Author Organization [facility] Address [address] [place] [address] Phone Care Team Providers Care Postal Worker Name Role Phone Paula Ritchie MD Primary Care Provider [phone] Darlene Tobar MD Primary Care Provider Jojo Christensen MD Primary Care Provider [phone] Darlene Tobar MD Primary Care Provider Darlene Tobar MD Primary Care Provider [phone] Poncho Thompson MD Primary Care Provider Encounter Details Date Type Department Care Team (Late st Contact Info) Description 10/21/[address] [facility] CT Imaging, Sousa [address] [place] [address] Social History Tobacco Use Types Packs/Day Years [...] Pulmonary, Allergy and Critical Care Medicine [address] [place] [address] Emmanuel Calixto MD [address] [place] [address] [email or web address] 08/04/2025 1:00 PM EDT Nurse Only [facility] Pulmonary, Allergy and Critical Care Medicine [address] [place] [address] Emmanuel Calixto MD [address] [place] [address] [email or web address] 08/18/2025 1:00 PM EDT Nurse Only [facility] Pulmonary, Allergy and Critical Care Medicine [address] [place] [address] Emmanuel Calixto MD [address] [place] [address] [email or web address] 09/01/2025 1:00 PM EST Nurse Only [facility] Pulmonary, Allergy and Critical Care Medicine [address] [place] [address] Emmanuel Calixto MD [address] [place] [address] [email or web address] 10/04/2025 9:30 AM EST Office Visit [facility] [address] [facility], 8th [place] [address] Egdar Bowers MD, PhD [address] [address] [email or web address] 10/24/2025 8:00 AM EST Office Visit [facility] [place] [address] [place] [address] Edgar Kaur MD [address] [place] [address] [email or web address] 01/11/2026 9:30 AM EDT Office Visit [facility] [address] [facility], [address] [place] [address] Poncho Thompson MD 52 [facility], [address] [place], [place] [id number] [email or web address] documented as of this encounter Visit Diagnoses Not on filedocumented in this encounter Additional Health Concerns Assessment Noted Time PHQ-2 Depression Total Score: 0 09/19/20 16 9:07 AM EST documented as of this encounter Care Teams Postal Worker Relationship Specialty Start Date End Date Paula Ritchie MD [address] [place] [address] PCP - General 06/13/16 09/26/20 Darlene Tobar MD [address] [facility] [place] [address] PCP - General Internal Medicine 09/27/20 12/15/20 Jojo Christensen MD 1 [facility], [address] [place] [address] [email or web address] PCP - General Internal Medicine 12/16/2012/19 Darlene Tobar MD [address] [facility] [place] [address] PCP - General Internal Medicine 12/20/20 12/31/21 Darlene Tobar MD [facility] [place] [address] PCP - General Internal Medicine 01/01/22 02/09/24 Poncho Thompson MD [address] [place] [address], [address] [place] [address] [email or web address] PCP - General Internal Medicine 02/10/24 documented as of this encounter Additional Source Comments The information contained in this document represents components of the legal health record. It is not the complete legal health record.[facility]
--- OUTSIDE RECORDS SUMMARY | 2025-07-24 15:36 | XMS_ITS | Encounter Summary ---
Author Organization [facility] Address [address] [place] [address] Phone Care Team Providers Care Varnish Thinner Name Role Phone Paula Ritchie MD Primary Care Provider [phone] Darlene Tobar MD Primary Care Provider [phone] Jojo Christensen MD Primary Care Provider [phone] Darlene Tobar MD Primary Care Provider [phone] Darlene Tobar MD Primary Care Provider [phone] Poncho Thompson MD Primary Care Provider Reason for Referral * MRI/CAT Scan - Closed Specialty Diagnoses / Procedures Referred By Contac t Referred To Contact Radiology Diagnoses Microscopic hematuria Procedures CT 3D Reconstruction Abdomen and Pelvis Edgar Patel MD Phone: tel: fax: mailto:[email or web address] Referral ID Status Reason Start Date Expiration Date Visits Re quested Visits Authorized [id number] Closed 11/18/2016 11/18/2017 1 1 Encounter Details Date Type Department Care Team ([facility] st Contact Info) Description 11/18/2016 Ancillary Orders [facility] Urology [address] [facility] ASB2-3 [place] [address] Edgar Patel MD [address] [place] [address] [email or web address] Microscopic hematuria Social History Tobacco Use Types [...] Upcoming Encounters Date Type Department Care Team ([facility] Contact Info) Description 07/28/2025 1:30 PM EDT Nurse Only [facility] Pulmonary, Allergy and Critical Care Medicine [address] [place] [address] Emmanuel Calixto MD [address] [place] [address] [email or web address] 08/04/2025 1:00 PM EDT Nurse Only [facility] Pulmonary, Allergy and Critical Care Medicine [address] [place] [address] Emmanuel Calixto MD [address] [place] [address] [email or web address] 08/18/2025 1:00 PM EDT Nurse Only [facility] Pulmonary, Allergy and Critical Care Medicine [address] [place] [address] Emmanuel Calixto MD [address] [place] [address] [email or web address] 09/01/2025 1:00 PM EST Nurse Only [facility] Pulmonary, Allergy and Critical Care Medicine [address] [place] [address] Emmanuel Calixto MD 10 [facility] 2nd [place] [address] [email or web address] 10/04/2025 9:30 AM EST Office Visit [facility] [place] [place] Neuromuscular Service [address] [facility], 8th [place] [address] Edgar Bowers MD, PhD [address] [address] [email or web address] 10/24/2025 8:00 AM EST Office Visit [facility] [place] [address] [place] [address] Edgar Kaur MD [address] [place] [address] [email or web address] 01/11/2026 9:30 AM EDT Office Visit [facility] [place] [place] [facility] [address] [place] [address], [address] [place] [address] Poncho Thompson MD [address] [place] [address], [address] [place] [address] [email or web address] documented as of this [...] documented as of this encounter Care Teams Varnish Thinner Relationship Specialty Start Date End Date Paula Ritchie MD [address] [place] [address] PCP - General 06/13/16 09/26/20 Darlene Tobar MD [address] [place] [address] [place] [address] PCP - General Internal Medicine 09/27/20 12/15/20 Jojo Christensen MD 1 [facility], [address] [place] [address] [email or web address] PCP - General Internal Medicine 12/16/2012/19 Darlene Tobar MD [address] [place] [address] [place] [address] PCP - General Internal Medicine 12/20/20 12/31/21 Darlene Tobar MD [address] [place] [address] [place] [address] PCP - General Internal Medicine 01/01/22 02/09/24 Poncho Thompson MD [address] [place] [address], [address] [place] [address] [email or web address] PCP - General Internal Medicine 02/10/24 documented as of this encounter Additional Source Comments The information contained in this document represents components of the legal health record. It is not the complete legal health record.[facility]
--- OUTSIDE RECORDS SUMMARY | 2025-07-24 15:36 | XMS_ITS | Encounter Summary ---
Author Organization [facility] Address [address] [place] [address] Phone Care Team Providers Care Radio Engineer Name Role Phone Paula Ritchie MD Primary Care Provider [phone] Darlene Tobar MD Primary Care Provider Jojo Chirstensen MD Primary Care Provider [phone] Darlene Tobar MD Primary Care Provider Darlene Tobar MD Primary Care Provider [phone] Poncho Thompson MD Primary Care Provider Encounter Details Date Type Department Care Team (Late st Contact Info) Description 10/03/2016 Procedure Pass [facility] 1st floor [address] [place] [address] Social History Tobacco Use Types Packs/Day Years [...] Pulmonary, Allergy and Critical Care Medicine [address] [place] [address] Emmanuel Calixto MD [address] [place] [address] [email or web address] 08/04/2025 1:00 PM EDT Nurse Only [facility] Pulmonary, Allergy and Critical Care Medicine [address] [place] [address] Emmanuel Calixto MD [address] [place] [address] [email or web address] 08/18/2025 1:00 PM EDT Nurse Only [facility] Pulmonary, Allergy and Critical Care Medicine [address] [place] [address] Emmanuel Calixto MD [address] [place] [address] [email or web address] 09/01/2025 1:00 PM EST Nurse Only [facility] Pulmonary, Allergy and Critical Care Medicine [address] [place] [address] Emmanuel Calixto MD [address] [place] [address] [email or web address] 10/04/2025 9:30 AM EST Office Visit [facility] [place] Neuromuscular Service [address] [facility], 8th [place] [address] Edgar Bowers MD, PhD [address] [address] [email or web address] 10/24/2025 8:00 AM EST Office Visit [facility] [place] [address] [place] [address] Edgar Kaur MD [address] [place] [address] [email or web address] 01/11/2026 9:30 AM EDT Office Visit [facility] [place] [facility] [address] [facility], [address] [place] [address] Poncho Thompson MD 52 [facility], [address] [place], [place] [address] [email or web address] documented as of this encounter Visit Diagnoses Not on filedocumented in this encounter Additional Health Concerns Assessment Noted Time PHQ-2 Depression Total Score: 0 09/19/20 16 9:07 AM EST documented as of this encounter Care Teams Radio Engineer Relationship Specialty Start Date End Date Paula Ritchie MD [address] [place] [address] PCP - General 06/13/16 09/26/20 Darlene Tobar MD [address] [facility] [place] [address] PCP - General Internal Medicine 09/27/20 12/15/20 Jojo Christensen MD 1 [facility], [address] [place] [address] [email or web address] PCP - General Internal Medicine 12/16/2012/19 Darlene Tobar MD [address] [facility] [place] [address] PCP - General Internal Medicine 12/20/20 12/31/21 Darlene Tobar MD [facility] [place] [address] PCP - General Internal Medicine 01/01/22 02/09/24 Poncho Thompson MD [address] [place] [address], [address] [place] [address] [email or web address] PCP - General Internal Medicine 02/10/24 documented as of this encounter Additional Source Comments The information contained in this document represents components of the legal health record. It is not the complete legal health record.[facility]
--- OUTSIDE RECORDS SUMMARY | 2025-07-24 15:36 | XMS_ITS | Clinical Summary ---
Author Organization [facility] Address [address] [place] [address] Care Team Providers Care Gynecological Assistant Name Role Phone Darlene Tobar Primary Care Provider [phone] Allergies Active Allergy Reactions Criticality Noted Date [...] Description 08/09/2025 8:00 AM EDT Office Visit [facility] Department of Ophthalmology [address] [place] [address] Ventura Kennedy MD [address] [place] [address] Health Maintenance Due Date Last Done Comments [...] Insurance [employer] MA[employer]GED MEDICARE PPO [place] Care Teams Gynecological Assistant Relationship Specialty Start Date End Date Darlene Tobar [address] [place] [address] PCP - General 04/24/20
--- OUTSIDE RECORDS SUMMARY | 2025-07-24 15:36 | XMS_ITS | Encounter Summary ---
Author Organization [facility] Address [address] [place] [address] Phone Care Team Providers Care Preparer Making Department Name Role Phone Paula Ritchie MD Primary Care Provider [phone] Darlene Tobar MD Primary Care Provider [phone] Jojo Christensen MD Primary Care Provider [phone] Darlene Tobar MD Primary Care Provider Darlene Tobar MD Primary Care Provider [phone] Poncho hTompson MD Primary Care Provider Encounter Details Date Type Department Care Team (Late st Contact Info) Description 11/18/2016 Transcribe Orders [facility] [address] [place] [address] Nancy Maya [address] [place] [address] [email or web address] Social History Tobacco Use Types Packs/Day [...] [facility] Pulmonary, Allergy and Critical Care Medicine [address] [place] [address] Emmanuel Calixto MD [address] [place] [address] [email or web address] 08/04/2025 1:00 PM EDT Nurse Only [facility] Pulmonary, Allergy and Critical Care Medicine [address] [place] [address] Emmanuel Calixto MD [address] [place] [address] [email or web address] 08/18/2025 1:00 PM EDT Nurse Only [facility] Pulmonary, Allergy and Critical Care Medicine [address] [place] [address] Emmanuel Calixto MD [address] [place] [address] [email or web address] 09/01/2025 1:00 PM EST Nurse Only [facility] Pulmonary, Allergy and Critical Care Medicine [address] [place] [address] Emmanuel Calixto MD [address] [place] [address] 10/04/2025 9:30 AM EST Office [place] [facility] [address] [facility], 8th [place] [address] Edgar Bowers MD, PhD [address] [address] [email or web address] 10/24/2025 8:00 AM EST Office Visit [facility] [place] [address] [place] [address] Edgar Kaur MD [address] [place] [address] [email or web address] 01/11/2026 9:30 AM EDT Office Visit [facility] [address] [facility], [address] [place] [address] Poncho Thompson MD 52 [facility], [address] [place] [address] [email or web address] documented as of this encounter Visit Diagnoses Not on filedocumented in this encounter Additional Health Concerns Assessment Noted Time PHQ-2 Depression Total Score: 0 09/19/20 16 9:07 AM EST documented as of this encounter Care Teams Preparer Making Department Relationship Specialty Start Date End Date Paula Ritchie MD [address] [place] [address] PCP - General 06/13/16 09/26/20 Darlene Tobar MD [address] [place] [address] [place] [address] PCP - General Internal Medicine 09/27/20 12/15/20 Jojo Christensen MD [address] [place] [address], [address] [address] [email or web address] PCP - General Internal Medicine 12/16/2012/19 Darlene Tobar MD [address] [place] [address] [place] [address] PCP - General Internal Medicine 12/20/20 12/31/21 Darlene Tobar MD [address] [place] [address] [place] [address] PCP - General Internal Medicine 01/01/22 02/09/24 Poncho Thompson MD [address] [place] [address], [place] [id number] [email or web address] PCP - General Internal Medicine 02/10/24 documented as of this encounter Additional Source Comments The information contained in this document represents components of the legal health record. It is not the complete legal health record.[facility]
--- OUTSIDE RECORDS SUMMARY | 2025-07-24 15:36 | XMS_ITS | Encounter Summary ---
Author Organization [facility] Address [address] [place] [address] Phone Care Team Providers Care System Support Technician Name Role Phone Paula Ritchie MD Primary Care Provider [phone] Darlene Tobar MD Primary Care Provider [phone] Jojo Christensen MD Primary Care Provider [phone] Darlene Tobar MD Primary Care Provider Darlene Tobar MD Primary Care Provider [phone] Poncho Thompson MD Primary Care Provider Encounter Details Date Type Department Care Team (Late st Contact Info) Description 10/26/2016 Procedure Pass [facility] CT Imaging, Sousa [address] [place] [address] Social History Tobacco Use Types Packs/Day Years [...] Pulmonary, Allergy and Critical Care Medicine [address] [place] [address] Emmanuel Calixto MD [address] [place] [address] [email or web address] 08/04/2025 1:00 PM EDT Nurse Only [facility] Pulmonary, Allergy and Critical Care Medicine [address] [place] [address] Emmanuel Calixto MD [address] [place] [address] [email or web address] 08/18/2025 1:00 PM EDT Nurse Only [facility] Pulmonary, Allergy and Critical Care Medicine [address] [place] [address] Emmanuel Calixto MD [address] [place] [address] [email or web address] 09/01/2025 1:00 PM EST Nurse Only [facility] Pulmonary, Allergy and Critical Care Medicine [address] [place] [address] Emmanuel Calixto MD [address] [place] [address] [email or web address] 10/04/2025 9:30 AM EST Office [place] [facility] [address] [facility], 8th [place] [address] Edgar Bowers MD, PhD [address] [address] [email or web address] 10/24/2025 8:00 AM EST Office Visit [facility] [place] [address] [place] [address] Edgar Kaur MD [address] [place] [address] [email or web address] 01/11/2026 9:30 AM EDT Office Visit [facility] 52 [facility], [address] [place] [address] Poncho Thompson MD 52 [facility], [address] [place], [place] [phone] [email or web address] documented as of this encounter Visit Diagnoses Not on filedocumented in this encounter Additional Health Concerns Assessment Noted Time PHQ-2 Depression Total Score: 0 09/19/20 16 9:07 AM EST documented as of this encounter Care Teams System Support Technician Relationship Specialty Start Date End Date Paula Ritchie MD [address] [place] [address] PCP - General 06/13/16 09/26/20 Darlene Tobar MD [address] [facility] [address] PCP - General Internal Medicine 09/27/20 12/15/20 Jojo Christensen MD 1 [facility], [address] [place] [address] [email or web address] PCP - General Internal Medicine 12/16/2012/19 Darlene Tobar MD [address] [facility] [address] PCP - General Internal Medicine 12/20/20 12/31/21 Darlene Tobar MD [address] [facility] [address] PCP - General Internal Medicine 01/01/22 02/09/24 Poncho Thompson MD [address] [place] [address], [address] [place] [address] [email or web address] PCP - General Internal Medicine 02/10/24 documented as of this encounter Additional Source Comments The information contained in this document represents components of the legal health record. It is not the complete legal health record.[facility]
== END 2025-07-24 15:09 | disposition home or self-care (01) ==
PROVIDERS: PCP Internal Medicine; Visit Provider Nurse Practitioner Family
DX: J06.9 Acute upper respiratory infection, unspecified (principal)

== ENCOUNTER 2025-07-24 13:09 | Outpatient (REF) | payer MEDICARE, SELFPAY ==
[2025-07-25 08:40] LABS: Chlamydia pneumoniae PCR Not Detected (Not Detect.); Coronavirus 229E PCR Not Detected (Not Detect.); Coronavirus HKU1 PCR Not Detected (Not Detect.); Coronavirus NL63 PCR Not Detected (Not Detect.); Coronavirus OC43 PCR Not Detected (Not Detect.); RSV PCR Not Detected (Not Detect.); Rhino/Enterovirus PCR Detected (Not Detect.)
[2025-07-25 08:44] LABS: Influenza A H1 PCR Not Detected (Not Detect.); Influenza A H1-2009 PCR Not Detected (Not Detect.); Influenza A H3 PCR Not Detected (Not Detect.); SARS-CoV-2 PCR Not Detected (Not Detect.)
== END 2025-07-24 13:10 | disposition home or self-care (01) ==
LOC: HO.LAB 13:09
PROVIDERS: PCP Internal Medicine; Visit Provider Nurse Practitioner Family
DX: J06.9 Acute upper respiratory infection, unspecified (principal); R05.9 Cough, unspecified; R50.9 Fever, unspecified
CPT/HCPCS: 87633; 99212